=== PATIENT | male | born 1945 | race Caucasian/White ===

== ENCOUNTER 2022-11-13 11:09 | Outpatient (OUT) | payer MEDICARE, OTHER, SELFPAY ==
[2022-11-13 11:39] LABS: Basophils Percent Auto 0.5 % (0.2-2.0); Eosinophils Absolute Auto 0.5 10^3/uL (0.0-0.7); Eosinophils Percent Auto 7.5 % (0.9-7.0); Hematocrit 41.2 % (42.0-54.0); Hemoglobin 13.6 g/dL (14.0-18.0); Immature Granulocytes Abs Auto 0.02 10^3/uL (0.00-0.03); Immature Granulocytes Pct Auto 0.3 % (0.0-0.5); Mean Corpuscular Volume 96.9 fL (80.0-94.0); Monocytes Absolute Auto 0.5 10^3/uL (0.3-0.8); Monocytes Percent Auto 7.2 % (1.7-12.0); Neutrophils Absolute Auto 4.4 10^3/uL (1.4-6.5); Neutrophils Percent Auto 69.5 % (43.0-75.0); Platelet Count 198 10^3/uL (150-450); Red Blood Count 4.25 10^6/uL (4.70-6.10); Red Cell Distribution Width 13.5 % (11.0-15.0); White Blood Count 6.4 10^3/uL (4.0-11.0)
[2022-11-13 11:52] LABS: Microalbumin Urine Random 1.3 mg/dL (<=30.0)
[2022-11-13 11:55] LABS: Estimated Average Glucose 114 mg/dL; Glycohemoglobin A1C 5.6 % (4.5-6.2)
[2022-11-13 12:22] LABS: Alanine Aminotransferase 25 U/L (16-63); Albumin Globulin Ratio 1.2; Albumin Level 3.5 g/dL (3.4-5.0); Alkaline Phosphatase 81 U/L (46-116); Anion Gap 10.1; Aspartate Amino Transferase 19 U/L (15-37); BUN Creatinine Ratio 11.3; Bilirubin Direct 0.2 mg/dL (0.0-0.2); Bilirubin Total 0.8 mg/dL (0.2-1.0); Calcium 9.1 mg/dL (8.5-10.1); Carbon Dioxide 31.1 mmol/L (21.0-32.0); Chloride 102 mmol/L (98-107); Chol HDL Ratio 1.7; Cholesterol 96 mg/dL (<=200); Estimated GFR (African America >60 (>=60); Estimated GFR (Non-African Ame >60 (>=60); Glucose 134 mg/dL (74-106); HDL Cholesterol 56 mg/dL (40-60); Potassium 4.2 mmol/L (3.5-5.1); Sodium 139 mmol/L (136-145); Thyroid Stimulating Hormone 0.481 uIU/mL (0.358-3.740); Total Protein 6.5 g/dL (6.4-8.2); Triglycerides 45 mg/dL (<=150)
[2022-11-13 12:37] LABS: Prostate Specific Antigen Scrn 0.37 ng/mL (<=4.00)
== END 2022-11-13 11:10 ==
PROVIDERS: PCP Family Medicine; Visit Provider Family Medicine
DX: E11.65 Type 2 diabetes mellitus with hyperglycemia (principal); E78.5 Hyperlipidemia, unspecified; Z79.899 Other long term (current) drug therapy; R53.83 Other fatigue; Z12.5 Encounter for screening for malignant neoplasm of prostate
CPT/HCPCS: 36415; 80048; 80061; 80076; 82043; 83036; 84443; 85025; G0103

== ENCOUNTER 2023-02-01 11:53 | Outpatient (OUT) | payer MEDICARE, OTHER, SELFPAY ==
[2023-02-01 16:07] LABS: Estimated Average Glucose 134 mg/dL; Glycohemoglobin A1C 6.3 % (4.5-6.2)
== END 2023-02-01 11:54 | disposition home or self-care (01) ==
LOC: LAB 11:54
PROVIDERS: PCP Family Medicine; Visit Provider Family Medicine
DX: E11.65 Type 2 diabetes mellitus with hyperglycemia (principal)
CPT/HCPCS: 36415; 83036

== ENCOUNTER 2023-03-28 13:46 | Outpatient (OUT) | payer MEDICARE, OTHER, SELFPAY ==
--- NOTE | 2023-03-28 14:04 | US_ITS ---
[address] [address] Patient Name: SRAVANTHI APPIAH MRN: [id number] date: 1945 Sex: M Assigned Patient Location: US Current Patient Location: US Accession/Order Number: [id number] Exam Date: 03/28/2023 14:05 Report Date: 03/28/2023 15:49 At the request of: SHAIKH DONTE Procedure: US scrotum EXAM: US scrotum HISTORY: Right Groin Pain R10.31 COMPARISON: None. TECHNIQUE: Scrotal ultrasound was performed, utilizing grayscale, color, and spectral Doppler. FINDINGS: RIGHT: Testis size: 4.7 X 3.2 X 2.5 cm. Testis morphology: Homogeneous appearance. No mass. Testis flow: Normal testicular color and spectral Doppler. Flow is symmetric with the contralateral testis. Epididymis: Normal size and morphology. Epididymis flow: Normal epididymal flow. Symmetric flow compared to contralateral epididymis. Scrotal sac: small hydrocele. Varicocele: yes. LEFT: Testis size: 4.2 x 3.1 x 2.7 cm. Testis morphology: Homogeneous appearance. No mass. Testis flow: Normal testicular color and spectral Doppler. Flow is symmetric with the contralateral testis. Epididymis: Normal size and morphology. Epididymis flow: Normal epididymal flow. Symmetric flow compared to contralateral epididymis. Scrotal sac: small hydrocele. Varicocele: yes. Additional findings: There is a 7.4 x 3.2 x 2.2 cm right inguinal hernia, containing nondistended bowel loops. US/US scrotum IMPRESSION: No evidence of torsion at the time of examination. Small bilateral hydrocele. Bilateral mild varicocele. A 7.4 x 3.2 x 2.2 cm right inguinal hernia, containing nondistended bowel loops. Electronically authenticated by: PEDRO MILLIGAN Date: 03/28/2023 15:49
== END 2023-03-28 13:47 | disposition home or self-care (01) ==
LOC: US 13:48
PROVIDERS: PCP Family Medicine; Visit Provider Internal Medicine
DX: R10.31 Right lower quadrant pain (principal); N43.3 Hydrocele, unspecified; K40.90 Unilateral inguinal hernia, without obstruction or gangrene, not specified as recurrent
CPT/HCPCS: 76870

== ENCOUNTER 2023-03-29 09:41 | Observation (INO) | payer MEDICARE, OTHER, SELFPAY ==
[2023-03-29 11:33] VITALS: BP 133/71; PULSE 68; RESP 18; TEMP 36.9; O2SAT 94; BMI 25.3
--- NOTE | 2023-03-29 12:01 | XR_ITS ---
The [address] [address] Patient Name: SRAVANTHI APPIAH MRN: [id number] date: 1945 Sex: M Assigned Patient Location: MS Current Patient Location: MS Accession/Order Number: [id number] Exam Date: 03/29/2023 12:15 Report Date: 03/29/2023 12:55 At the request of: ABNER ODEN Procedure: XR acute abdomen series EXAMINATION: XR acute abdomen series HISTORY: Abd Pain COMPARISON: XR chest 07/12/2021 FINDINGS: LUNGS: Mild haziness within medial right lung base. Hyperexpanded lungs. Chronic calcified granuloma within medial right lung base. MEDIASTINUM: No abnormal widening. Stable closure device projecting over cardiac silhouette. BOWEL GAS PATTERN: Non-obstructed. No abnormal dilation or suspicious fluid levels. FREE AIR: None. CALCIFICATIONS: None significant. BONES: No fracture or visible bone lesion. Right convex curvature of lumbar spine. OTHER: Negative. XR/XR acute abdomen series IMPRESSION: 1. Trace amount of right basilar pulmonary infiltrates versus atelectasis. 2. No bowel obstruction or suspicious abdominal findings. Electronically authenticated by: СВЕТЛАНА [place] Date: 03/29/2023 12:55
--- NOTE | 2023-03-29 12:01 | ECG_ITS ---
The [facility] Test Date: 2023-03-29 Pat Name: SRAVANTHI APPIAH Department: Room: 2291 Gender: Male [employer]phol[employer]: : 1945 Requested By: YOKO LEVY Order Number: [id number] Reading MD: ABNER ODEN Measurements Intervals Oley Rate: 70 P: CO: QRS: 54 QRSD: 95 T: 58 QT: 404 QTc: 436 Interpretive Statements ATRIAL FIBRILLATION ABNORMAL RHYTHM ECG WARNING: DATA QUALITY MAY AFFECT INTERPRETATION No previous ECG available for comparison Electronically Signed On 03-31-2023 7:06:13 EDT by ABNER ODEN
--- NOTE | 2023-03-29 13:10 | PM.GSCN ---
History of Present Illness Consult details Consult date: 03/29/23 Reason for consult: hernia Requesting physician: Brian Babcock Narrative: Hector Alvarez is a 78 y/o male being seen on the [facility] surg floor due to a right inguinal hernia. Mr. Alvarez presented to his outpatient primary care physician on 03/28 and was admitted directly into the hospital for nausea, abdominal pain, and right inguinal mass. I was later consulted at about this case by his PCP. Upon questioning, the patient revealed that a few weeks ago he was lifting concrete in his backyard when he suddenly felt a popping sensation in his right inguinal area. He stated that he almost immediately noticed the mass. Patient was planning on bringing up this issue with me as he had an appointment scheduled with me about chronic nausea he's been experiencing lately. Unfortunately, the patient was diagnosed with Covid and was unable to make that appointment. Physical exam showed asymmetry between the inguinal areas with a prominent protrusion in the right inguinal area. The mass was more appreciated with the patient standing and coughing. patient denies abdominal pain, hematochezia, diarrhea, or constipation. Review of Systems ROS Status of ROS 10 or more systems reviewed and unremarkable except as noted in history and below [facility] Medical History (Updated 03/30/23 @ 08:00 by Hector Hurtado MD) Afib ?I48.91 - Unspecified atrial fibrillation (ICD-10) CHF (congestive heart failure) ?I50.9 - Heart failure, unspecified (ICD-10) Colon cancer ?C18.9 - Malignant neoplasm of colon, unspecified (ICD-10) Depression ?F32.A - Depression, unspecified (ICD-10) Diabetes ?E11.9 - Type 2 diabetes mellitus without complications (ICD-10) Hyperlipidemia ?E78.5 - Hyperlipidemia, unspecified (ICD-10) Inguinal hernia bilateral, non-recurrent ?K40.20 - Bilateral inguinal hernia, without obstruction or gangrene, not specified as recurrent (ICD-10) Stroke ?I63.9 - Cerebral infarction, unspecified (ICD-10) Surgical History Cataract ?H26.9 - Unspecified cataract (ICD-10) Cornea transplant recipient ?Z94.7 - Corneal transplant status (ICD-10) History of colon resection ?Z90.49 - Acquired absence of other specified parts of digestive tract (ICD-10) Knee joint replacement status ?Z96.659 - Presence of unspecified artificial knee joint (ICD-10) Presence of Watchman left atrial appendage closure device ?Z95.818 - Presence of other cardiac implants and grafts (ICD-10) Family History Mother Family history of CHF (congestive heart failure) Family history of diabetes mellitus Family history of myocardial infarction Father Family history of COPD (chronic obstructive pulmonary disease) Family history of cancer Social History Within the past year, how often did you have a drink containing alcohol: monthly or less Within the past year, how many standard drinks containing alcohol did you have on a typical day: 1 or 2 Within the past year, how often did you have six or more drinks on one occasion: never Total score: 0 Score interpretation: A score less than 4 is consistent with normal alcohol consumption. 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 Highest level of school completed/degree received: high school graduate Are you now , , , , never or living with a partner: In a typical week, how many times do you talk on the telephone with family, friends, or neighbors: 3 or more times per week How often do you get together with friends or relatives: 3 or more times per week How often do you attend baptist or religion services: never Do you belong to any clubs or organizations such as baptist groups unions, [employer] or athletic groups, or school groups: no Total score: 2 Score interpretation: A score of greater than or equal to 2 indicates the lowest level of social isolation. Little interest or pleasure in doing things: not at all Feeling down, depressed, or hopeless: several days Feel stressed/tense/nervous/anxious/difficulty sleeping: not at all Do you think of yourself as: straight/heterosexual Gender Identity: male and female Meds Home Medications and Allergies Home Medications Medication Instructions Recorded Confirmed Type albuterol sulfate 90 mcg/actuation 2 puff inhalation Q4H PRN 03/29/23 03/29/23 History aerosol inhaler shortness of breath or wheezing aspirin 81 mg capsule 81 mg PO DAILY 03/29/23 03/29/23 History atorvastatin 40 mg tablet 40 mg PO BEDTIME 03/29/23 03/29/23 History donepezil 5 mg tablet 5 mg PO BEDTIME 03/29/23 03/29/23 History fluoxetine 40 mg capsule 40 mg PO DAILY 03/29/23 03/29/23 History metformin 500 mg tablet,extended 500 mg PO BID 03/29/23 03/29/23 History release 24 hr omeprazole 40 mg capsule,delayed 40 mg PO DAILY 03/29/23 03/29/23 History release oxybutynin chloride 10 mg 10 mg PO DAILY 03/29/23 03/29/23 History tablet,extended release 24 hr tamsulosin 0.4 mg capsule 0.4 mg PO DAILY 03/29/23 03/29/23 History Allergies Allergy/AdvReac Type Severity Reaction Status Date / Time No Known Drug Allergies Allergy Verified 03/29/23 11:13 Exam Constitutional Vital Signs, click to edit/add: Last Vital Signs Temp 98.5 F 03/29/23 11:33 Pulse 68 03/29/23 11:33 Resp 18 03/29/23 11:33 BP 133/71 03/29/23 11:33 Pulse Ox 94 L 03/29/23 11:33 O2 Del Method Room Air 03/29/23 11:33 Common normals: no apparent distress, average body habitus, oriented x3, healthy appearing and well nourished Cardio Common normals: regular rate and regular rhythm GI Common normals: soft to palpation Inspection: localized swelling (right groin hernia reducible) Male Groin/Perineum Exam: hernia Neuro Common normals: oriented x3 and CN's II-XII intact bilaterally Results Labs Labs: All other labs normal. Imaging Abdominal ultrasound report/results: report reviewed Assessment and Plan Assessment and Plan (1) Right inguinal hernia: (2) History of heart disease: (3) Afib: (4) CHF (congestive heart failure): (5) Colon cancer: (6) Depression: (7) Diabetes: (8) Stroke: (9) Cataract: (10) Cornea transplant recipient: (11) History of colon resection: (12) Knee joint replacement status: (13) Presence of Watchman left atrial appendage closure device: Plan Right inguinal hernia repair with mesh open; risks benefits and alternatives to surgery which point patient may include infection, bleeding, nerve injury, recurrence of the hernia, blood clots legs or lungs, pneumonia, heart attack, stroke, and/or . He voiced understanding of all the above. Plan is for surgery tomorrow a.m. if ok with anesthesia.
[2023-03-29 13:16] LABS: Basophils Percent Auto 0.3 % (0.2-2.0); Eosinophils Absolute Auto 0.3 10^3/uL (0.0-0.7); Eosinophils Percent Auto 3.8 % (0.9-7.0); Hematocrit 40.1 % (42.0-54.0); Hemoglobin 13.1 g/dL (14.0-18.0); Immature Granulocytes Abs Auto 0.01 10^3/uL (0.00-0.03); Immature Granulocytes Pct Auto 0.1 % (0.0-0.5); Lymphocytes Absolute Auto 1.1 10^3/uL (1.2-3.8); Mean Corpuscular HGB Conc 32.7 g/dL (29.9-35.2); Mean Corpuscular Hemoglobin 31.1 pg (25.9-34.0); Mean Corpuscular Volume 95.2 fL (80.0-94.0); Mean Platelet Volume 9.5 fL (9.5-13.5); Monocytes Absolute Auto 0.7 10^3/uL (0.3-0.8); Monocytes Percent Auto 9.5 % (1.7-12.0); Neutrophils Percent Auto 70.3 % (43.0-75.0); Platelet Count 199 10^3/uL (150-450); Red Blood Count 4.21 10^6/uL (4.70-6.10); White Blood Count 7.1 10^3/uL (4.0-11.0)
[2023-03-29 13:31] LABS: INR 0.99; Partial Thromboplastin Time 28.9 sec (22.3-36.2); Prothrombin Time 10.5 sec (9.0-11.6)
[2023-03-29 13:45] VITALS: O2SAT 97
[2023-03-29 13:52] LABS: Anion Gap 8.4; BUN Creatinine Ratio 12.6; Calcium 9.1 mg/dL (8.5-10.1); Carbon Dioxide 34.2 mmol/L (21.0-32.0); Chloride 101 mmol/L (98-107); Estimated GFR (African America >60 (>=60); Estimated GFR (Non-African Ame >60 (>=60); Glucose 118 mg/dL (74-106); Potassium 4.6 mmol/L (3.5-5.1); Sodium 139 mmol/L (136-145)
[2023-03-29 15:03] VITALS: BP 141/82; PULSE 73; RESP 16; TEMP 36.5; O2SAT 96
--- NOTE | 2023-03-29 16:08 | PC.NURSE ---
Dr. Olson, Dr. Babcock, and Dr. Hurtado aware of Dr. Poole canceling surgery due to extensive cardiac history and discharge home. RN into speak with patient about plan of care. Patient to follow up with mortgage loan assistant to receive cardiac clearance prior to calling Dr. Hurtado for surgery. Patient and family verbalizes understanding. Dr. Hurtado' office phone number provided. Discharge instructions and limitations given to patient, no heavy lifting, no pushing or pulling. Pt verbalizes understanding. Pt educated on when to seek medical attention. Pt verbalizes understanding. Pt and family denies further questions and needs and is agreeable to plan of care.
--- NOTE | 2023-04-02 14:46 | CM.DCFOLLOWU ---
Person spoke with: patient How are you feeling? well How is your pain? no pain Did you understand your discharge instructions? yes Do you have any questions about your discharge instructions? no Were you given any prescriptions at discharge? no Were you able to get your prescriptions filled? N/A Do you understand how to take your medications as ordered? yes Do you have any questions about your follow up appointment and do you plan to keep your follow up appointment? has made phone calls to surgeon and concrete grinder operator, they were supposed to call him back today at 2:30. He is just waiting to get surgery scheduled. Advised to call back to hospital if assistance is still needed. Is there anything else that you would like to discuss? no Questions/Comments/Concerns/Other:
--- NOTE | 2023-04-07 08:57 | PM.PN ---
Progress Note: Subjective Subjective Interval history: Case was discussed with Dr. Olson for eating prior to admission. Inguinal hernia pain continuing to progress but not to the point of needing admitted overnight. The following morning when he came in was evaluated by general surgery who felt not a surgical emergency and can be handled as an outpatient, patient was discharged home prior to my seeing him. Outpatient planning per Dr. Olson Exam Constitutional Vital Signs, click to edit/add: Last Vital Signs Temp 97.7 F 03/29/23 15:03 Pulse 73 03/29/23 15:03 Resp 16 03/29/23 15:03 BP 141/82 03/29/23 15:03 Pulse Ox 96 03/29/23 15:03 O2 Del Method Room Air 03/29/23 15:03 Progress Note: A&P Assessment and Plan (1) Right inguinal hernia: (2) History of heart disease: (3) Afib: (4) CHF (congestive heart failure): (5) Colon cancer: (6) Depression: (7) Diabetes: (8) Stroke: (9) Cataract: (10) Cornea transplant recipient: (11) History of colon resection: (12) Knee joint replacement status: (13) Presence of Watchman left atrial appendage closure device:
== END 2023-03-29 16:13 | disposition home or self-care (01) ==
PROVIDERS: Admitting Provider Family Medicine; PCP Family Medicine; Visit Provider Family Medicine
DX: K40.90 Unilateral inguinal hernia, without obstruction or gangrene, not specified as recurrent (principal); I48.91 Unspecified atrial fibrillation; I50.9 Heart failure, unspecified; F32.A Depression, unspecified; E11.9 Type 2 diabetes mellitus without complications; E78.5 Hyperlipidemia, unspecified; Z86.73 Personal history of transient ischemic attack (TIA), and cerebral infarction without residual deficits; Z94.7 Corneal transplant status; Z90.49 Acquired absence of other specified parts of digestive tract; Z96.659 Presence of unspecified artificial knee joint; Z95.818 Presence of other cardiac implants and grafts; Z85.038 Personal history of other malignant neoplasm of large intestine; Z87.891 Personal history of nicotine dependence; Z79.899 Other long term (current) drug therapy; Z86.16 Personal history of COVID-19; Z79.82 Long term (current) use of aspirin; Z79.84 Long term (current) use of oral hypoglycemic drugs
CPT/HCPCS: 36415; 74022; 80048; 81001; 83880; 85025; 85610; 85730; 87086; 93005; 94667; 94761; G0378; G0379

== ENCOUNTER 2023-08-22 10:08 | Outpatient (OUT) | payer MEDICARE, OTHER, SELFPAY ==
[2023-08-22 11:13] LABS: Estimated Average Glucose 134 mg/dL; Glycohemoglobin A1C 6.3 % (4.5-6.2)
== END 2023-08-22 10:09 | disposition home or self-care (01) ==
LOC: LAB 10:09
PROVIDERS: PCP Family Medicine; Visit Provider Family Medicine
DX: E11.65 Type 2 diabetes mellitus with hyperglycemia (principal)
CPT/HCPCS: 36415; 83036

== ENCOUNTER 2023-09-26 20:16 | Emergency (ER) | payer MEDICARE, OTHER, SELFPAY ==
--- NOTE | 2023-09-26 20:16 | RESP.RT ---
Pt arrived already intubated. RT took over bagging the patient until time of was called.
[2023-09-26 20:23] VITALS: BMI 26.6
--- NOTE | 2023-09-26 20:25 | ED_ITS ---
HPI - CPR General Chief Complaint: Cardiac Arrest/CPR Stated Complaint: Cardiac Arrest Source comment: EMS and bystander History of Present Illness HPI Narrative: This 78-year-old male was brought emergency department by EMS upon notification for full arrest. History was obtained from EMS and a bystander. The bystander called EMS after noticing that the patient's truck was parked outside and was not moving and he was inside. The bystander stated that around 7 PM she noticed that his truck was parked outside and thought that was unusual. She put her kids to bed and approximately 30 minutes later noticed that the truck was still outside and he was still in the truck. She went outside and noticed that he was not breathing or moving and called EMS. EMS was called at approximately 736. Upon their arrival the patient was unresponsive. He was taken out of the vehicle and CPR was started. He received 4 rounds of IV epinephrine and 1 sodium bicarbonate and was intubated at scene. At one point he had ventricular fibrillation and was defibrillated. He was asystole on the monitor besides the one episode of ventricular fibrillation. Upon arrival the patient was intubated with no spontaneous vital signs. He received an additional 2 rounds of IV epinephrine and one round of sodium bicarbonate. He did not regain any vital signs and was pulseless. Code was called at 2018 by myself. Patient's Laurie called his phone and we answered and made her aware of his passing. She came to the ED afterwards. She last saw him between 4-5pm and he seemed fine at that time. Handicrafts Teacher was called and Handicrafts Teacher's assistant plant control operator, Alan came to ED. The plan is for the patient to have an autopsy. Family is agreeable with this plan. critical care time 35 minutes Related Data Home Medications ?Medication ?Instructions ?Recorded ?Confirmed albuterol sulfate 90 mcg/actuation 2 puff inhalation Q4H PRN 03/29/23 03/29/23 aerosol inhaler shortness of breath or wheezing aspirin 81 mg capsule 81 mg PO DAILY 03/29/23 03/29/23 atorvastatin 40 mg tablet 40 mg PO BEDTIME 03/29/23 03/29/23 donepezil 5 mg tablet 5 mg PO BEDTIME 03/29/23 03/29/23 fluoxetine 40 mg capsule 40 mg PO DAILY 03/29/23 03/29/23 metformin 500 mg tablet,extended 500 mg PO BID 03/29/23 03/29/23 release 24 hr omeprazole 40 mg capsule,delayed 40 mg PO DAILY 03/29/23 03/29/23 release oxybutynin chloride 10 mg 10 mg PO DAILY 03/29/23 03/29/23 tablet,extended release 24 hr tamsulosin 0.4 mg capsule 0.4 mg PO DAILY 03/29/23 03/29/23 Allergies Allergy/AdvReac Type Severity Reaction Status Date / Time No Known Drug Allergies Allergy Verified 03/29/23 11:13 [facility] Medical History (Updated 09/26/23 @ 23:00 by Terri Doherty MD) Colon cancer ?C18.9 - Malignant neoplasm of colon, unspecified (ICD-10) Diabetes ?E11.9 - Type 2 diabetes mellitus without complications (ICD-10) Depression ?F32.A - Depression, unspecified (ICD-10) CHF (congestive heart failure) ?I50.9 - Heart failure, unspecified (ICD-10) Stroke ?I63.9 - Cerebral infarction, unspecified (ICD-10) Afib ?I48.91 - Unspecified atrial fibrillation (ICD-10) Hyperlipidemia ?E78.5 - Hyperlipidemia, unspecified (ICD-10) Inguinal hernia bilateral, non-recurrent ?K40.20 - Bilateral inguinal hernia, without obstruction or gangrene, not specified as recurrent (ICD-10) Surgical History Cataract ?H26.9 - Unspecified cataract (ICD-10) Cornea transplant recipient ?Z94.7 - Corneal transplant status (ICD-10) History of colon resection ?Z90.49 - Acquired absence of other specified parts of digestive tract (ICD- 10) Knee joint replacement status ?Z96.659 - Presence of unspecified artificial knee joint (ICD-10) Presence of Watchman left atrial appendage closure device ?Z95.818 - Presence of other cardiac implants and grafts (ICD-10) Family History Mother Family history of CHF (congestive heart failure) Family history of diabetes mellitus Family history of myocardial infarction Father Family history of COPD (chronic obstructive pulmonary disease) Family history of cancer Social History Within the past year, how often did you have a drink containing alcohol: monthly or less Within the past year, how many standard drinks containing alcohol did you have on a typical day: 1 or 2 Within the past year, how often did you have six or more drinks on one occasion: never Total score: 0 Score interpretation: A score less than 4 is consistent with normal alcohol consumption. 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 Highest level of school completed/degree received: high school graduate Are you now , , , , never or living with a partner: In a typical week, how many times do you talk on the telephone with family, friends, or neighbors: 3 or more times per week How often do you get together with friends or relatives: 3 or more times per week How often do you attend oriental orthodox or catholic services: never Do you belong to any clubs or organizations such as oriental orthodox groups unions, [employer] or athletic groups, or school groups: no Total score: 2 Score interpretation: A score of greater than or equal to 2 indicates the lowest level of social isolation. Little interest or pleasure in doing things: not at all Feeling down, depressed, or hopeless: several days Feel stressed/tense/nervous/anxious/difficulty sleeping: not at all Do you think of yourself as: straight/heterosexual Gender Identity: male and female Examination Exam Primary Survey: Yes pulseless General: Yes normal body habitus Head/Face: Yes other (Pupils are fixed, conjunctiva has a film over it) Eyes: Yes no periorbital swelling Chest: Yes intact to palpation Circulation: Yes absent heart sounds, Yes absent peripheral pulse, Yes pallor and Yes cyanosis Respiratory: Yes other (intubated, no spontaneous respirations) Gastrointestinal: Yes nondistended Extremities: Yes intact to palpation Back/Spine: Yes patient on back board Skin: Yes no sign of injury MDM - Cardiac Arrest/CPR MDM Narrative Medical decision making narrative: See note in HPI Discharge Plan Discharge Chief Complaint: Cardiac Arrest/CPR Clinical Impression: Cardiac arrest Patient Disposition: Prescriptions / Home Meds: No Action albuterol sulfate 90 mcg/actuation HFA aerosol inhaler 2 puff INHALATION Q4H PRN (Reason: shortness of breath or wheezing) atorvastatin 40 mg tablet 40 mg PO BEDTIME donepezil 5 mg tablet 5 mg PO BEDTIME fluoxetine 40 mg capsule 40 mg PO DAILY metformin 500 mg tablet extended release 24 hr 500 mg PO BID omeprazole 40 mg capsule,delayed release(DR/EC) 40 mg PO DAILY oxybutynin chloride 10 mg tablet extended release 24hr 10 mg PO DAILY tamsulosin 0.4 mg capsule 0.4 mg PO DAILY aspirin 81 mg capsule 81 mg PO DAILY Print Language: Ivorian Referrals: Fish Mariscal MD [Primary Care Provider] - 1 week Probable Cause of Probable Cause of : Cardiac arrest
--- OUTSIDE RECORDS SUMMARY | 2023-09-26 20:33 | XMS_ITS | CCD ---
Author Organization [facility] Care Team Providers Care Clinical Specialty Rep Name Role Phone PROVIDER, UNKNOWN Admitting Unavailable PROVIDER, UNKNOWN Attending Unavailable RONDA VOSS Attending Unavailable WACHSMAN, TEGAN Admitting Unavailable REQUEST, IP SOCIAL WORK SERVICE Consulting Unavailable MASSIEL JONES Referring Unavailable REQUEST, IP PHYSICAL THERAPY SERVICE Consulting Unavailable CONSULT, IP NEUROLOGY Consulting Unavailabl e REQUEST, IP OCCUPATIONAL THERAPY SERVICE Consult ing Unavailable PROVIDER, UNKNOWN Admitting Unavailable MARY SIGALA Referring Unavailable PROVIDER, UNKNOWN Attending Unavailable PROVIDER, UNKNOWN Admitting Unavailable PROVIDER, UNKNOWN Attending Unavailable PROVIDER, UNKNOWN Attending Unavailable FISH LEVY Primary Care Unavailable PROVIDER, UNKNOWN Admitting Unavailable PROVIDER, UNKNOWN Attending Unavailable PATIENT, SELF Referring Unavailable FISH LEVY Primary Care Unavailable PROVIDER, UNKNOWN Admitting Unavailable PROVIDER, UNKNOWN Admitting Unavailable ABRAHAM GAUTAM Referring Unavailable PROVIDER, UNKNOWN Attending Unavailable WACHSMAN, TEGAN Admitting Unavailable MASSIEL JONES Referring Unavailable PROVIDER, UNKNOWN Attending Unavailable WACHSMAN, TEGAN Admitting Unavailable KAREN, MASSIEL Referring Unavailable PROVIDER, UNKNOWN Attending Unavailable WACHSMAN, TEGAN Admitting Unavailable KAREN, MASSIEL Referring Unavailable PROVIDER, UNKNOWN Attending Unavailable SELVINCHSMAN, TEGAN Admitting Unavailable KAYLAN VALDIVIA Referring Unavailable PROVIDER, UNKNOWN Attending Unavailable Fish Levy Unavailable Unavailable Unavailable Leandra Abbasi Consulting Unavailable Geri, Carlito Admitting Unavailable Sanjana Loo Attending Unavailable Shaikh Olson Primary Care Unavailable Rodolfo Shaffer Consulting Unavailable Celine Garcia Consulting Unavailable Edin Clifford Consulting Unavail able Ken Mathew Consulting Unavailable Bao Landa Consulting Unavailab Delmi Lin Consulting Unavailable Deloris García Consulting Unavailable Belinda De Leon Consulting Unavailab Néstor Love Consulting Unavailable ZIEBER, DR СВЕТЛАНА Damon Consulting Unavailable NADERER, DR FISH Artis Primary Care Unavailable FAWWAD, H Admitting Unavailable FAWWAMarlon, H Attending Unavailable FAWJAXON, H Consulting Unavailable NADERER, DR FISH Artis Attending Unavailable NADERER, DR FISH Artis Admitting Unavailable NADERER, DR FISH Artis Consulting Unavailable NADERER, DR FISH Artis Primary Care Unavailable NADERER, DR FISH Artis Attending Unavailable NADERER, DR FISH Artis Consulting Unavailable NADERER, DR FISH Artis Primary Care Unavailable NADERER, DR FISH Artis Admitting Unavailable GRECHNY ., TERE TINOCO Consulting Unavailabl e NADERER, DR FISH Artis Primary Care Unavailable DIAB ., PRATIMA Admitting Unavailable DIAB ., PRATIMA Attending Unavailable BRENTON, DR MCKENZIE Damon Consulting Unavailable BELTRÁN, DR MCKENZIE Damon Admitting Unavailable NADERER, DR FISH Artis Primary Care Unavailable BRENTON, DR MCKENZIE Damon Attending Unavailable GRECHNY ., TERE TINOCO Consulting Unavailabl e CARROLL, JASSON Consulting Unavailable KIRILL LOPEZ Consulting Unavailable NADERER, DR FISH Artis Primary Care Unavailable KENNY ., WASHINGTON Admitting Unavailable KENNY ., WASHINGTON Attending Unavailable MORELAND, BRUNA-JAD Consulting Unavailable KENNY ., [place] Consulting Unavailable DIAB ., PRATIMA Consulting Unavailable RASTEGAR, PEDRO Consulting Unavailable Marina Gaines Unavailable [place] ARBOLEDA Attending Unavailable FISH LEVY Referring Unavailable NAELERENelson, FISH Primary Care Unavailable Fish Levy MD Primary Care Provider KRISTYN LOPEZ I Attending Unavailable NAELERER, FISH Referring Unavailable NADERER, FISH Primary Care Unavailable KRISTYN LOPEZ I Referring Unavailable CAM, FISH Primary Care Unavailable NAELERER, FISH Referring Unavailable NAELERER, FISH Primary Care Unavailable SRAVANTHI CASTELLANOS Referring Unavailable NADERER, FISH Primary Care Unavailable AYESHA JERONIMO Attending Unavailable AYESHA JERONIMO Referring Unavailable NADERER, FISH Primary Care Unavailable KRISTYN LOPEZ I Referring Unavailable CAM, FISH Primary Care Unavailable SRAVANTHI CASTELLANOS Admitting Unavailable SRAVANTHI CASTELLANOS Attending Unavailable SRAVANTHI CASTELLANOS Referring Unavailable NAELERER, FISH Primary Care Unavailable AYESHA JERONIMO Attending Unavailable FISH LEVY Primary Care Unavailable SRAVANTHI CASTELLANOS Attending Unavailable SRAVANTHI CASTELLANOS Referring Unavailable FISH LEVY Primary Care Unavailable Allergies Allergy Classification Reported Allergen(s) Allergy Type Date of Onset Reaction(s) Facility (12 sources) Flecainide; Translations: [FLECAINIDE] Drug Allergy 4 Dizziness [facility] Repository (2 sources) hydrOXYzine; Translations: [hydrOXYzine] Drug Allergy Other -[facility] 250 DO Work Phone: (1 source) hydrOXYzine Drug Allergy 2 [facility] Repository (1 source) hydrOXYzine Drug Allergy [facility] Repository (1 source) cyclobenzaprine Drug Allergy Unknown [facility] [employer] Other (1 source) traMADol Drug Allergy Unknown [facility] [employer] Other Medications Current Medications Medication Drug Class(es) Dates Sig (Normalized) Sig (Original) [id number] 200 actuat albuterol 0.09 mg/actuat metered dose inhaler (5 sources) beta2-Adrenergic Agonist take 2 puff(s) by inhalation every four hours as needed for wheezing albuterol (PROVENTIL HFA;VENTOLIN HFA) 90 mcg/actuation inhaler Inhale 2 puffs every 4 (four) hours as needed for wheezing. 0 Active take 2 puff(s) by inhalation twi ce daily Albuterol Sulfate HFA 108 (90 Base) MCG/ACT Inhalation Aerosol Solution INHALE 2 PUFFS Twice daily Quantity: 0 Refills: 0 Ordered: 28-Sep-2021 DO Active aspirin 81 mg oral tablet (5 sources) Platelet Aggregation Inhibitor, Nonsteroidal Anti-inflammatory Drug take 1 capsule by mouth in the morning aspirin 81 mg capsule Take 81 mg by mouth in the morning. 0 Active take 1 tablet by mouth once soraya y Aspirin 325 MG Oral Tablet Delayed Release Take 1 tablet daily Quantity: 0 Refills: 0 Ordered: 28-Sep-2021 DO Active atorvastatin 40 mg oral tablet (6 sources) HMG-CoA Reductase Inhibitor Start: 01-28-2019 take 1 tablet by mouth once daily atorvastatin (LIPITOR) 40 mg tablet Take 1 tablet (40 mg total) by mouth daily. 90 tablet 3 01/28/2019 Active citalopram 40 mg oral tablet (1 source) Serotonin Reuptake Inhibitor take 0.5 tablet by mouth every twenty-four hours Citalopram Hydrobromide 40 MG 0.5 tablet Orally Once a day Active dextromethorphan hydrobromide 1.5 mg/ml / pyrilamine maleate 1.5 mg/ml oral solution (1 source) Uncompetitive E-evaluw-C-aspartat e Receptor Antagonist, Sigma-1 Agonist Start: 03-13-2023 take 10 mL by mouth every eight hours Morse DM 7.5-7.5 MG/5ML 10 mL Orally every 8 hours for 5 days Mar, Active donepezil hydrochloride 5 mg oral tablet (3 sources) take 1 tablet by mouth once daily donepeziL (ARICEPT) 5 mg tablet Take 1 tablet (5 mg total) by mouth nightly. 0 Active FLUoxetine 40 mg oral capsule (5 sources) Serotonin Reuptake Inhibitor take 1 capsule by mouth in the morning FLUoxetine (PROzac) 40 mg capsule Take 1 capsule (40 mg total) by mouth in the morning. 0 Active fluticasone propionate 0.05 mg/actuat metered dose nasal spray (1 source) Corticosteroid Start: 03-13-2023 take 1 spray(s) nasal route once daily Flonase Allergy Relief 50 MCG/ACT 1 spray in each nostril Nasally Once a day for 14 day(s) Mar, Active Medical Marijuana / Cannabinoid Product as documented (1 source) Medical Marijuan a / Cannabinoid Product as documented as documented as documented as documented Active metFORMIN hydrochloride 500 mg oral tablet (6 sources) Biguanide take 1 tablet by mouth in the morning, then take 1 tablet by mouth at bedtime metFORMIN (GLUCOPHAGE) 500 mg tablet Take 1 tablet (500 mg total) by mouth in the morning and 1 tablet (500 mg total) before bedtime. 0 Active take 1 tablet by stacy th every twenty-four hours metFORMIN HCl 1000 MG 1 tablet with a meal Orally Once a day Active take 1 tablet by stacy th twice daily at mealtime metFORMIN HCl - 1000 MG Oral Tablet TAKE 1 TABLET TWICE A DAY WITH MEALS Quantity: 180 Refills: 0 Ordered: 28-Sep-2021 DO Active ondansetron 4 mg oral tablet (1 source) Serotonin-3 Receptor Antagonist Start: 03-13-2023 take 1 tablet by mouth every eight hours as needed Ondansetron HCl 4 MG 1 tablet Orally every 8 hours as needed for 7 days Mar, Active ONETOUCH VERIO SYSTEM misc (3 sources) Start: 12-24-2017 ONETOUCH VERIO SYSTEM misc See Admin Instructions. 0 12/24/2017 Active 24 hr oxybutynin chloride 10 mg extended release oral tablet (3 sources) Cholinergic Muscarinic Antagonist Start: 02-01-2023 take 1 tablet by mouth once daily oxybutynin XL (DITROPAN-XL) 10 mg 24 hr tablet TAKE 1 TABLET BY MOUTH EVERY DAY 0 02/01/2023 Active prednisoLONE acetate 10 mg/ml ophthalmic suspension (5 sources) Corticosteroid Start: 04-16-2017 prednisoLONE acetate (PRED FORTE) 1 % ophthalmic suspension Administer 1 drop to both eyes in the morning. 6 04/16/2017 Active take 1 drop(s) into the eye(s) once daily prednisoLONE Acetate 1 % Ophthalmic Suspension INSTILL 1 DROP INTO BOTH EYS DAILY. Quantity: 0 Refills: 0 Ordered: 28-Sep-2021 DO Active psyllium 3400 mg powder for oral suspension (3 sources) take 1 [tsp_us] by mouth once daily in the morning psyllium (METAMUCIL) powder Take 1 packet by mouth in the morning. 1 teaspoon daily. 0 Active rivaroxaban 20 mg oral tablet (1 source) Factor Xa Inhibitor take 1 tablet by mouth every twenty-four hours Xarelto 20 MG 1 tablet with food Orally Once a day Active tamsulosin hydrochloride 0.4 mg oral capsule (6 sources) alpha-Adrenergic Melo take 1 capsule by mouth once daily tamsulosin (FLOMAX) 0.4 mg capsule Take 1 capsule (0.4 mg total) by mouth nightly. 0 Active zolpidem tartrate 5 mg oral tablet (3 sources) gamma-Aminobutyric Acid-ergic Agonist take 1 tablet by mouth every twenty-four hours Zolpidem Tartrate 5 MG 1 tablet at bedtime Orally Once a day Active take 1 tablet by mouth at bedtim e Zolpidem Tartrate 10 MG Oral Tablet TAKE 1 TABLET AT BEDTIME. Quantity: 0 Refills: 0 Ordered: 28-Sep-2021 DO Active Completed/Discontinued Medications Medication Drug Class(es) Dates Sig (Normalized) Sig (Original) furosemide 40 mg oral tablet (2 sources) Loop Diuretic Start: 09-27-2021 take 1 tablet by mouth once daily Furosemide 40 MG Oral Tablet TAKE 1 TABLET DAILY. Quantity: 0 Refills: 0 Ordered: 27-Sep-2021 DO Start : 27-Sep-2021 Active metoprolol tartrate 25 mg oral tablet (2 sources) beta-Adrenergic Melo Start: 09-28-2021 take 1 tablet by mouth once daily Metoprolol Tartrate 25 MG Oral Tablet Take 1 tablet daily Quantity: 90 Refills: 3 Ordered: 28-Sep-2021 Edin Clifford MD Start : 28-Sep-2021 Active DOSE DECreASeD; DO NOT FILL UPDATE PROFILE take 1 tablet by stacy th every twelve hours Metoprolol Tartrate 50 MG 1 tablet with food Orally Twice a day Active warfarin sodium 5 mg oral tablet (2 sources) Vitamin K Antagonist take 1 tablet by mouth once daily Warfarin Sodium 5 MG Oral Tablet TAKE 1 TABLET DAILY or as directed by [facility] Quantity: 90 Refills: 1 Ordered: 28-Sep-2021 DO Active Problems Active Problems Problem Classification Problem Date Documented Da te Episodic/Chronic Acute cerebrovascular disease (4 sources) Nontraumatic subarachnoid hemorrhage, unspecified; Translations: [Cerebrovascular accident] Onset: 03-08-2022 03-08-2022 Chronic Asthma (1 source) Unspecified asthma, uncomplicated; Translations: [J45.909 - Unspecified asthma, uncomplicated] Onset: 07-13-2021 Chronic Cancer of colon (1 source) Personal history of other malignant neoplasm of large intestine; Translations: [PERS HX OTH MALIG NEOPLSM LG INTEST] Onset: 10-31-2022 Episodic Cancer of thyroid (3 sources) Papillary thyroid carcinoma; Translations: [Malignant neoplasm of thyroid gland] Onset: 11-27-2019 11-27-2019 Chronic Cardiac dysrhythmias (11 sources) Unspecified atrial fibrillation; Translations: [Atrial fibrillation] Onset: 10-25-2009 04-15-2021 Chronic Chronic obstructive pulmonary disease and bronchiectasis (1 source) Chronic obstructive pulmonary disease, unspecified; Translations: [Chronic obstructive pulmonary disease, unspecified] Onset: 09-11-2023 Chronic Congestive heart failure; nonhypertensive (7 sources) Heart failure, unspecified; Translations: [Chronic diastolic heart failure] Onset: 07-21-2015 04-25-2017 Chronic Coronary atherosclerosis and other heart disease (4 sources) Coronary arteriosclerosis; Translations: [Atherosclerotic heart disease of [place] coronary artery with other forms of angina pectoris] Onset: 02-14-2019 02-14-2019 Chronic Diabetes mellitus with complications (4 sources) Type 2 diabetes mellitus with hyperglycemia; Translations: [TYPE 2 DM W/HYPERGLYCEMIA] Onset: 06-26-2022 Chronic Diabetes mellitus without complication (3 sources) Diabetes mellitus without complication; Translations: [Diabetes mellitus without mention of complication, type II or unspecified type, not stated as uncontrolled] Onset: 10-31-2022 Chronic Diseases of white blood cells (1 source) Elevated white blood cell count, unspecified; Translations: [ELEVATED WHITE BLOOD CELL COUNT UNS] Onset: 08-23-2022 Chronic Disorders of lipid metabolism (6 sources) Hyperlipidemia; Translations: [Other and unspecified hyperlipidemia] Onset: 04-07-2009 04-25-2017 Chronic Essential hypertension (3 sources) Benign essential hypertension; Translations: [Benign essential hypertension] Onset: 10-31-2022 Chronic Genitourinary symptoms and ill-defined conditions (6 sources) Urge incontinence of urine; Translations: [Urge incontinence] Onset: 08-02-2023 08-02-2023 Chronic Genitourinary symptoms and ill-defined conditions (2 sources) Nocturia; Translations: [Nocturia] Onset: 08-02-2023 Episodic Headache; including migraine (3 sources) Headache; including migraine; Translations: [HEADACHE UNSPECIFIED] Onset: 03-07-2022 Heart valve disorders (3 sources) Aortic valve regurgitation; Translations: [Nonrheumatic aortic (valve) insufficiency] Onset: 02-09-2023 02-09-2023 Chronic Hyperplasia of prostate (7 sources) Benign prostatic hyperplasia without lower urinary tract symptoms; Translations: [Nocturia due to benign prostatic hypertrophy] Onset: 08-23-2022 08-02-2023 Chronic Hypertension with complications and secondary hypertension (3 sources) Hypertensive heart disease with congestive heart failure; Translations: [Hypertensive heart disease with heart failure] Onset: 03-13-2019 03-13-2019 Chronic Late effects of cerebrovascular disease (3 sources) Sequela of cerebrovascular accident; Translations: [Unspecified sequelae of cerebral infarction] Onset: 05-24-2022 05-24-2022 Chronic Nausea and vomiting (3 sources) Nausea with vomiting, unspecified; Translations: [NAUSEA WITH VOMITING UNSPECIFIED] Onset: 08-20-2022 Episodic Noninfectious gastroenteritis (1 source) Noninfective gastroenteritis and colitis, unspecified; Translations: [NONINFECTIVE GE AND COLITIS UNS] Onset: 08-23-2022 Episodic Other aftercare (1 source) Other residential (current) drug therapy; Translations: [OTH ALF CURRENT DRUG THERAPY] Onset: 10-31-2022 Episodic Other aftercare (1 source) staff radiographer (current) use of aspirin; Translations: [LEAF STICKER CURRENT USE OF ASPIRIN] Onset: 10-31-2022 Episodic Other aftercare (1 source) group home (current) use of oral hypoglycemic drugs; Translations: [ALF USE ORAL HYPOGLYCEMIC DX] Onset: 10-31-2022 Episodic Other circulatory disease (3 sources) Presence of other cardiac implants and grafts; Translations: [Other specified cardiac device in situ] Onset: 04-27-2021 04-27-2021 Chronic Other gastrointestinal disorders (1 source) Personal history of other diseases of the digestive system; Translations: [Personal history of other diseases of the digestive system] Onset: 06-05-2023 Episodic Other hereditary and degenerative nervous system conditions (3 sources) Essential tremor; Translations: [Essential tremor] Onset: 05-24-2022 05-24-2022 Chronic Other nutritional; endocrine; and metabolic disorders (2 sources) Overweight in adulthood with body mass index of 25 or more but less than 30; Translations: [Overweight] Episodic Other screening for suspected conditions (not mental disorders or infectious disease) (2 sources) Other specified abnormal findings of blood chemistry; Translations: [Encounter for screening for malignant neoplasm of prostate] Onset: 11-14-2021 Episodic Other skin disorders (4 sources) Changes in skin texture; Translations: [CHANGES IN SKIN TEXTURE] Onset: 10-30-2022 Episodic Residual codes; unclassified (1 source) Other specified postprocedural states; Translations: [Other specified postprocedural states] Onset: 06-05-2023 Episodic Screening and history of mental health and substance abuse codes (3 sources) Ex-smoker; Translations: [Personal history of tobacco use] Onset: 10-31-2022 Episodic Comment on above: QUIT SMOKING - SMOKED - 1 PPD; Spondylosis; intervertebral disc disorders; other back problems (2 sources) Cervical spondylosis without myelopathy; Translations: [Spondylosis without myelopathy or radiculopathy, cervical region] Chronic Unclassified (1 source) I31.3 - Pericardial effusion (noninflammatory); Translations: [I31.3 - Pericardial effusion (noninflammatory)] Onset: 07-13-2021 Unclassified (1 source) CONTACT W/AND (SUSP) EXPOS COVID-19; Translations: [CONTACT W/AND (SUSP) EXPOS COVID-19] Onset: 08-23-2022 Unclassified (1 source) Post-op Onset: 06-05-2023 Unclassified (1 source) New Patient Onset: 08-02-2023 Unclassified (1 source) Urgency incontinence [N39.41] Onset: 09-24-2023 Viral infection (1 source) Postherpetic neuralgia; Translations: [Other postherpetic nervous system involvement] Episodic Past or Other Problems Problem Classification Problem Date Documented Da te Episodic/Chronic Complication of device; implant or graft (3 sources) Thrombus of physiologic left atrium as complication of procedure; Translations: [Thrombosis due to cardiac prosthetic devices, implants and grafts, initial encounter] Onset: 05-31-2021 05-31-2021 Episodic Conditions associated with dizziness or vertigo (3 sources) Dizziness; Translations: [Dizziness and giddiness] Onset: 01-28-2019 01-28-2019 Episodic Deficiency and other anemia (1 source) Anemia, unspecified; Translations: [D64.9 - Anemia, unspecified] Onset: 07-13-2021 Episodic Headache; including migraine (3 sources) Headache; Translations: [Headache] Onset: 03-09-2022 03-09-2022 Episodic Malaise and fatigue (1 source) Weakness; Translations: [R53.1 - Weakness] Onset: 07-13-2021 Episodic Nonspecific chest pain (5 sources) Chest pain, unspecified; Translations: [Other chest pain] Onset: 07-13-2021 Episodic Other aftercare (1 source) group home (current) use of anticoagulants; Translations: [LEAF STICKER CURRNT USE ANTICOAGULANTS] Onset: 03-09-2022 Episodic Estrella-; endo-; and myocarditis; cardiomyopathy (except that caused by tuberculosis or sexually transmitted disease) (3 sources) Pericarditis; Translations: [Unspecified disease of pericardium] Onset: 07-13-2021 Episodic Unclassified (1 source) Contact with and (suspected) exposure to covid-19 Z20.822 Viral infection (2 sources) COVID-19; Translations: [U07.1 - COVID-19] Onset: 07-13-2021 Results Test Name Value Interpretation Reference Range Facility US RETROPERITONEAL COMPLETEo n 09-16-2023 US RETROPERITONEAL COMPLETE US RETROPERITONEAL COMPLETE EXAM: Complete retroperitoneal ultrasound. HISTORY: Urgency and incontinence. COMPARISON: None. TECHNIQUE: Transabdominal sonography was performed of the kidneys. FINDINGS: The right kidney measures 14.4 x 6.0 x 6.6 cm. Left kidney 12.4 x 4.7 x 6.1 cm. The kidneys are normal in size and echogenicity. There is no evidence of mass, dilated collecting structures, shadowing stones, or perinephric fluid collection. Cyst is visualized at the lateral and inferior pole of the right kidney measuring 7.0 x 6.6 x 6.9 cm. Other cyst with septation is seen in the mid right kidney medially measuring 4.7 x 4.9 x 4.5 cm. Multiple small cysts are seen in the left kidney at the mid portion medially and the largest measure 1.3 x 1.4 x 1.2 cm Bladder appears grossly unremarkable. Urinary bladder measures 5 x 6.2 x 6.6 cm and total bladder volume is 143.4 mL. Post voiding measurements decreased to 3.1 x 4.5 x 5.3 cm and total post voiding residual volume of 38 mL. Bilateral ureteral jets are visualized Enlarged prostate gland is visualized measuring 4.5 x 4.8 x 4.9 cm with total volume of 55 mL. IMPRESSION: Bilateral simple renal cysts requiring no further follow-up. No stones or hydronephrosis Small amount of postvoiding residual of 38 mL. Prominent prostate gland with the measurements described above. Finalized by Elidia Fagan MD on 09/15/2023 11:44 PM Normal [facility] BASIC METABOLIC PANLon 09-10 Anion gap [Moles/Vol] 6 mmol/L Normal 5-15 [facility] Comment on above: Performed By: #### B MP, 718-7 #### [facility] ([id number]) [address], [address] [place] [address] Calcium [Mass/Vol] 9.2 mg/dL Normal 8.5-10.5 [facility] Comment on above: Performed By: #### Frantz CAMPOS, 718-7 #### [facility] ([id number]) [address], [address] [place] [address] Chloride [Moles/Vol] 98 mmol/L Normal 98-[address] [facility] Comment on above: Performed By: #### Frantz CAMPOS 718-7 #### [facility] ([id number]) [address], [address] [place] [address] CO2 [Moles/Vol] 32 mmol/L Normal 22-32 [facility] Comment on above: Performed By: #### Frantz CAMPOS 718-7 #### [facility] ([id number]) [address], [address] [place] [address] Creatinine [Mass/Vol] 1.12 mg/dL Normal 0.60-1.30 [facility] Comment on above: Result Comment: METH OD TRACEABLE TO IDMS STANDARD Performed By: #### Frantz CAMPOS 718-7 #### [facility] ([id number]) [address], [address] [place] [address] GFR/1.73 sq M.predicted among non-blacks MDRD (S/P/Bld) [Vol rate/Area] 67 mL/min/{1.73_m2} Normal >59 [facility] Comment on above: Result Comment: Reported eGFR is based on the CKD-EPI 2020 equation that does not use a race coefficient. Performed By: #### Frantz CAMPOS, 718-7 #### [facility] ([id number]) [address], [address] [place] [address] Glucose [Mass/Vol] 132 mg/dL High 65-99 [facility] Comment on above: Performed By: #### Frantz CAMPOS 718-7 #### [facility] ([id number]) [address], [facility] [address] [place] [address] Potassium [Moles/Vol] 4.4 mmol/L Normal 3.5-5.0 [facility] Comment on above: Performed By: #### Frantz CAMPOS 718-7 #### [facility] ([id number]) [address], [facility] [address] [place] [address] Sodium [Moles/Vol] 136 mmol/L Normal 134-146 [facility] Comment on above: Performed By: #### Frantz CAMPOS 718-7 #### [facility] ([id number]) [address], [facility] [address] [place] [address] Urea nitrogen [Mass/Vol] 14 mg/dL Normal 5-27 [facility] Comment on above: Performed By: #### Frantz CAMPOS 718-7 #### [facility] ([id number]) [address], [facility] [address] [place] [address] HEMOGLOBINon 09-11-2023 Hemoglobin (Bld) [Mass/Vol] 13.6 g/dL Normal 13.0-17.0 [facility] Comment on above: Performed By: #### Frantz CAMPOS 718-7 #### [facility] ([id number]) [address], [facility] [address] [place] [address] URINALYSISon 09-11-2023 Bilirubin Ql (U) Negative Normal NEG [facility] BLOOD/HGB Negative Normal NEG [facility] Color (U) YELLOW Normal YELLOW [facility] Glucose Ql (U) Negative Normal NEG [facility] Ketones Ql (U) Negative Normal NEG [facility] Leukocyte esterase Test strip Ql (U) Negative Normal NEG [facility] Nitrite Ql (U) Negative Normal NEG [facility] pH (U) 6.5 [pH] Normal 5.0-8.5 [facility] Protein Ql (U) Negative Normal NEG [facility] Specific gravity (U) [Rel density] 1.011 Normal 1.003-1.035 [facility] TURBIDITY CLEAR Normal CLEAR [facility] Urobilinogen (U) [Mass/Vol] mg/dL Normal <1.1 [facility] URINE CULTUREon 09-11-2023 Bacteria identified Cx Nom (U) CULTURE RESULTS <10,000 ORGANISMS/ML NORMAL URO GENITAL SUZY Normal [facility] Comment on above: Performed By: #### 6 30-4 #### [facility] ([id number]) [address] [place] [address], [address] [place] [address] Microscopic, urineon 024 Epithelial cells Auto (Urine sed) [#/Area] [facility] RBC Auto (Urine sed) [#/Area] 0 [facility] WBC Auto (Urine sed) [#/Area] 1 [facility] POCT Urinalysis Auto, W/O Mi croscopyOrdered By: Heidi Sands on 08-02-2023 External Poct Urine Blood Trace [facility] External Poct Urine Glucose Negative [facility] External Poct Urine Ketones Negative [facility] External Poct Urine Leukocyte Esterase Negative [facility] External Poct Urine Nitrite Negative [facility] External Poct Urine Ph 6.0 [facility] External Poct Urine Protein Negative [facility] UA (MICROSCOPIC)on 4 R.B.CELLS 0 /hpf Normal 0-5 [facility] SQUAMOUS EPITHELIUM <1 Normal 0-5 [facility] W.B.CELLS 1 /hpf Normal 0-5 [facility] COVID/FLU RT-PCRon 3 SARS-CoV-2 (COVID-19) RNA JAY+probe Ql (Unsp spec) Positive [facility] Other COVID/FLU RT-PCR Negative [facility] Other CBC AUTO DIFFon 08-21-2022 BASO # 0.0 103/ul Normal 0.0-0.1 [facility] Comment on above: Performed By: #### C VDTBH #### [facility] [address] [place] [address] Dr. Armando Dumas Basophils/100 WBC (Bld) 0.3 % Normal 0.2-2.0 [facility] Comment on above: Performed By: #### C VDTBH #### [facility] [address] [place] [address] Dr. Armando Dumas EO # 0.3 103/ul Normal 0.0-0.7 [facility] Comment on above: Performed By: #### C VDTBH #### [facility] [address] [place] [address] Dr. Armando Dumas Eosinophils/100 WBC (Bld) 2.2 % Normal 0.9-7.0 [facility] Comment on above: Performed By: #### C VDTBH #### [facility] [address] [place] [address] Dr. Armando Dumas Erythrocyte distribution width (RBC) [Ratio] 13.2 % Normal 11.0-15.0 [facility] Comment on above: Performed By: #### C VDTBH #### [facility] [address] [place] [address] Dr. Armando Dumas Hematocrit (Bld) [Volume fraction] 34.1 % Critically low 42.0-54.0 [facility] Comment on above: Performed By: #### C VDTBH #### [facility] [address] [place] [address] Dr. Armando Dumas Hemoglobin (Bld) [Mass/Vol] 11.2 g/dL Critically low 14.0-18.0 [facility] Comment on above: Performed By: #### C VDTBH #### [facility] [address] [place] [address] Dr. Armando Dumas IG # 0.04 10e3/ul Critically high 0.00-0.03 [facility] Comment on above: Performed By: #### C VDTBH #### [facility] [address] [place] [address] Dr. Armando Dumas IG % 0.3 % Normal 0.0-0.5 [facility] Comment on above: Performed By: #### C VDTBH #### [facility] [address] [address] [address] Armando Dumas LYMPH # 1.3 103/ul Normal 1.2-3.8 [facility] Comment on above: Performed By: #### C VDTBH #### [facility] [address] [place] [address] Dr. Armando Dumas Lymphocytes/100 WBC (Bld) 11.4 % Critically low 20.5-60.0 [facility] Comment on above: Performed By: #### C VDTBH #### [facility] [address] [place] [address] Dr. Armando Dumas MANUAL DIFF REQ NO Normal [facility] Comment on above: Performed By: #### C VDTBH #### [facility] [address] [place] [address] Dr. Armando Dumas MCH (RBC) [Entitic mass] 30.6 pg Normal 25.9-34.0 [facility] Comment on above: Performed By: #### C VDTBH #### [facility] [address] [place] [address] Dr. Armando Dumas MCHC (RBC) [Mass/Vol] 32.8 g/dL Normal 29.9-35.2 [facility] Comment on above: Performed By: #### C VDTBH #### [facility] [address] [place] [address] Dr. Armando Dumas MCV (RBC) [Entitic vol] 93.2 fL Normal 80.0-94.0 [facility] Comment on above: Performed By: #### C VDTBH #### [facility] [address] [place] [address] Dr. Armando Dumas MONO # 1.0 103/ul Critically high 0.3-0.8 [facility] Comment on above: Performed By: #### C VDTBH #### [facility] [address] [address] [address] Armando Dumas Monocytes/100 WBC (Bld) 8.7 % Normal 1.7-12.0 [facility] Comment on above: Performed By: #### C VDTBH #### [facility] [address] [address] [address] Armando Dumas NEUT # 9.1 103/ul Critically high 1.4-6.5 [facility] Comment on above: Performed By: #### C VDTBH #### [facility] [address] [address] [address] Armando Dumas Neutrophils/100 WBC (Bld) 77.1 % Critically high 43.0-75.0 [facility] Comment on above: Performed By: #### C VDTBH #### [facility] [address] [place] [address] Dr. Armando Dumas Platelet mean volume (Bld) [Entitic vol] 9.7 fL Normal 9.5-13.5 [facility] Comment on above: Performed By: #### C VDTBH #### [facility] [address] [place] [address] Dr. Armando Dumas PLT 189 103/ul Normal 150-450 [facility] Comment on above: Performed By: #### C VDTBH #### [facility] [address] [place] [address] Dr. Armando Dumas RBC 3.66 106/ul Critically low 4.70-6.10 [facility] Comment on above: Performed By: #### C VDTBH #### [facility] [address] [place] [address] Dr. Armando Dumas WBC 11.8 103/ul Critically high 4.0-11.0 [facility] Comment on above: Performed By: #### C VDTBH #### [facility] [address] [place] [address] Dr. Armando Dumas LACTATE/LACTIC ACIDon 2022 Lactate [Moles/Vol] 1.3 mmol/L Normal 0.4-2.0 [facility] Comment on above: Performed By: #### C BC #### [facility] [address] [place] [address] Dr. Armando Dumas POINT OF CARE GLUCOSEon 08-03 Glucose [Mass/Vol] 151 mg/dL Critically high 74-106 [facility] Comment on above: Performed By: #### P OCGLUC #### [facility] [address] [place] [address] Dr. Armando Dumas Glucose [Mass/Vol] 124 mg/dL Critically high 74-106 [facility] Comment on above: Performed By: #### P OCGLUC #### [facility] [address] [place] [address] Dr. Armando Dumas PROF 14(COMP METB)on 023 Albumin [Mass/Vol] 3.1 g/dL Critically low 3.4-5.0 [facility] Comment on above: Performed By: #### C BC #### [facility] [address] [place] [address] Dr. Armando Dumas Albumin/Globulin [Mass ratio] 1.2 {ratio} Normal [facility] Comment on above: Performed By: #### C BC #### [facility] [address] [place] [address] Dr. Armando Dumas ALP [Catalytic activity/Vol] 61 U/L Normal 46-116 [facility] Comment on above: Performed By: #### C BC #### [facility] [address] [place] [address] Dr. Armando Dumas ALT [Catalytic activity/Vol] 16 U/L Normal 16-63 [facility] Comment on above: Performed By: #### C BC #### [facility] [address] [place] [address] Dr. Armando Dumas Anion gap [Moles/Vol] 8.4 mmol/L Normal [facility] Comment on above: Performed By: #### C BC #### [facility] [address] [place] [address] Dr. Armando Dumas AST [Catalytic activity/Vol] 18 U/L Normal 15-37 [facility] Comment on above: Performed By: #### C BC #### [facility] [address] [place] [address] Dr. Armando Dumas Bilirubin [Mass/Vol] 1.2 mg/dL Critically high 0.2-1.0 [facility] Comment on above: Performed By: #### C BC #### [facility] [address] [place] [address] Dr. Armando Dumas Calcium [Mass/Vol] 8.5 mg/dL Normal 8.5-10.1 [facility] Comment on above: Performed By: #### C BC #### [facility] [address] [place] [address] Dr. Armando Dumas Chloride [Moles/Vol] 104 mmol/L Normal 98-107 [facility] Comment on above: Performed By: #### C BC #### [facility] [address] [place] [address] Dr. Armando Dumas CO2 [Moles/Vol] 30.7 mmol/L Normal 21.0-32.0 [facility] Comment on above: Performed By: #### C BC #### [facility] [address] [place] [address] Dr. Armando Dumas Creatinine [Mass/Vol] 1.03 mg/dL Normal 0.70-1.30 [facility] Comment on above: Performed By: #### C BC #### [facility] [address] [place] [address] Dr. Armando Dumas EGFR-AF ROMANIAN >60 Normal >=60 [facility] Comment on above: Performed By: #### C BC #### [facility] [address] [place] [address] Dr. Armando Dumas EGFR-NON AF ROMANIAN >60 Normal >=60 [facility] Comment on above: Performed By: #### C BC #### [facility] [address] [place] [address] Dr. Armando Dumas Globulin (S) [Mass/Vol] 2.5 g/dL Normal [facility] Comment on above: Performed By: #### C BC #### [facility] [address] [address] [address] Armando Dumas Glucose [Mass/Vol] 110 mg/dL Critically high 74-106 [facility] Comment on above: Performed By: #### C BC #### [facility] [address] [address] [address] Armando Dumas Potassium [Moles/Vol] 4.1 mmol/L Normal 3.5-5.1 [facility] Comment on above: Performed By: #### C BC #### [facility] [address] [address] [address] Armando Dumas Protein [Mass/Vol] 5.6 g/dL Critically low 6.4-8.2 [facility] Comment on above: Performed By: #### C BC #### [facility] [address] [place] [address] Dr. Armando Dumas Sodium [Moles/Vol] 139 mmol/L Normal 136-145 [facility] Comment on above: Performed By: #### C BC #### [facility] [address] [place] [address] Dr. Armando Dumas Urea nitrogen [Mass/Vol] 16.0 mg/dL Normal 7.0-18.0 [facility] Comment on above: Performed By: #### C BC #### [facility] [address] [place] [address] Dr. Armando Dumas Urea nitrogen/Creatinine [Mass ratio] 15.5 mg/mg Normal [facility] Comment on above: Performed By: #### C BC #### [facility] [address] [place] [address] Dr. Armando Dumas CBC AUTO DIFFon 08-20-2022 BASO # 0.0 103/ul Normal 0.0-0.1 [facility] Comment on above: Performed By: #### C BC #### [facility] [address] [address] [address] Armando Dumas Basophils/100 WBC (Bld) 0.1 % Critically low 0.2-2.0 [facility] Comment on above: Performed By: #### C BC #### [facility] [address] [place] [address] Dr. Armando Dumas EO # 0.0 103/ul Normal 0.0-0.7 [facility] Comment on above: Performed By: #### C BC #### [facility] [address] [place] [address] Dr. Armando Dumas Eosinophils/100 WBC (Bld) 0.1 % Critically low 0.9-7.0 [facility] Comment on above: Performed By: #### C BC #### [facility] [address] [place] [address] Dr. Armando Dumas Erythrocyte distribution width (RBC) [Ratio] 13.0 % Normal 11.0-15.0 [facility] Comment on above: Performed By: #### C BC #### [facility] [address] [place] [address] Dr. Armando Dumas Hematocrit (Bld) [Volume fraction] 40.7 % Critically low 42.0-54.0 [facility] Comment on above: Performed By: #### C BC #### [facility] [address] [place] [address] Dr. Armando Dumas Hemoglobin (Bld) [Mass/Vol] 13.8 g/dL Critically low 14.0-18.0 [facility] Comment on above: Performed By: #### C BC #### [facility] [address] [place] [address] Dr. Armando Dumas IG # 0.08 10e3/ul Critically high 0.00-0.03 [facility] Comment on above: Performed By: #### C BC #### [facility] [address] [place] [address] Dr. Armando Dumas IG % 0.5 % Normal 0.0-0.5 [facility] Comment on above: Performed By: #### C BC #### [facility] [address] [place] [address] Dr. Armando Dumas LYMPH # 0.4 103/ul Critically low 1.2-3.8 [facility] Comment on above: Performed By: #### C BC #### [facility] [address] [address] [address] Armando Dumas Lymphocytes/100 WBC (Bld) 2.6 % Critically low 20.5-60.0 [facility] Comment on above: Performed By: #### C BC #### [facility] [address] [address] [address] Armando Dumas MANUAL DIFF REQ NO Normal [facility] Comment on above: Performed By: #### C BC #### [facility] [address] [address] [address] Armando Dumas MCH (RBC) [Entitic mass] 31.2 pg Normal 25.9-34.0 [facility] Comment on above: Performed By: #### C BC #### [facility] [address] [place] [address] Dr. Armando Dumas MCHC (RBC) [Mass/Vol] 33.9 g/dL Normal 29.9-35.2 [facility] Comment on above: Performed By: #### C BC #### [facility] [address] [place] [address] Dr. Armando Dumas MCV (RBC) [Entitic vol] 92.1 fL Normal 80.0-94.0 [facility] Comment on above: Performed By: #### C BC #### [facility] [address] [place] [address] Dr. Armando Dumas MONO # 0.8 103/ul Normal 0.3-0.8 [facility] Comment on above: Performed By: #### C BC #### [facility] [address] [place] [address] Dr. Armando Dumas Monocytes/100 WBC (Bld) 5.4 % Normal 1.7-12.0 [facility] Comment on above: Performed By: #### C BC #### [facility] [address] [place] [address] Dr. Armando Dumas NEUT # 13.8 103/ul Critically high 1.4-6.5 [facility] Comment on above: Performed By: #### C BC #### [facility] [address] [place], [place] [address] Dr. Armando Dumas Neutrophils/100 WBC (Bld) 91.3 % Critically high 43.0-75.0 [facility] Comment on above: Performed By: #### C BC #### [facility] [address] [place], [place] [address] Dr. Armando Dumas Platelet mean volume (Bld) [Entitic vol] 9.7 fL Normal 9.5-13.5 [facility] Comment on above: Performed By: #### C BC #### [facility] [address] [place], [place] [address] Dr. Armando Dumas PLT 206 103/ul Normal 150-450 [facility] Comment on above: Performed By: #### C BC #### [facility] [address] [address] [address] Armando Dumas RBC 4.42 106/ul Critically low 4.70-6.10 [facility] Comment on above: Performed By: #### C BC #### [facility] [id number] Armando Dumas WBC 15.1 103/ul Critically high 4.0-11.0 [facility] Comment on above: Result Comment: mona newberry with slide Performed By: #### C BC #### [facility] [id number] Armando Dumas [address] ABD/PELVIS WO CONon 08-20 CT ABD/PELVIS WO CON EXAMINATION: CT ABD/PELVIS WO CON, 08/20/2022 5:42 PM EDT HISTORY: UNSPECIFIED ABDOMINAL PAIN COMPARISON: CT of the abdomen and pelvis from 10/22/2019 TECHNIQUE: Axial CT imaging was performed through the abdomen and pelvis without intravenous contrast. Multiplanar reformats were performed. Dose reduction techniques were achieved by using automated exposure control and/or adjustment of mA and/or kV according to patient size and/or use of iterative reconstruction technique. FINDINGS: Lung bases: Lung bases are clear. No pleural effusion. GI upper: Small hiatal hernia Liver: Normal size and contour. Gallbladder: No significant abnormality. No cholelithiasis. Biliary system: No intra or extrahepatic biliary ductal dilatation. Spleen: Normal size. Pancreas: Unremarkable. Adrenal glands: Normal adrenal glands. Kidneys/ureters: Normal contours. No hydronephrosis. There is a 0.3 cm nonobstructing left renal stone.. There are bilateral renal cysts, measuring up to 7.1 cm on the right. Vessels: No aneurysm. Lymph Nodes: No lymphadenopathy. Small bowel: No wall thickening or dilatation. Colon: No wall thickening or dilatation. There are colonic diverticula without evidence of acute diverticulitis. Appendix: No findings of appendicitis. Peritoneal cavity: No free fluid or peritoneum. Lower : Unremarkable. Bones: No acute bony abnormality. There are degenerative changes of the lumbar spine. Soft tissues: No acute finding. Additional findings: None. IMPRESSION: 0.3 cm nonobstructing left renal stone. Small hiatal hernia. Electronically authenticated by: PEDRO MILLIGAN Date: 2022-08-20 18:57 Normal [facility] CULTURE BLOODon 08-20-2022 Microscopic examination of blood, culture Culture Observations: NO GROWTH AT 5 DAYS. Normal [facility] Comment on above: Performed By: #### C VDTB #### [facility] [address] [address] [address] Armando Dumas Microscopic examination of blood, culture Culture Observations: NO GROWTH AT 5 DAYS. Normal [facility] Comment on above: Performed By: #### C VDTB #### [facility] [address] [place] [address] Dr. Armando Dumas Covid-19 PCR ([facility])on 08-02 SARS-CoV-2 (COVID-19) RNA JAY+probe Ql (Unsp spec) Not detected Normal NOT DETECTED [facility] Comment on above: Result Comment: When diagnostic testing is negative, the possibility of a false negative should be considered in the context of a patient's recent exposures and the presence of clinical signs and symptoms consistent with SARS-CoV-2. This test is not yet approved or cleared by the [place] FDA. When there are no FDA-approved or cleared tests available, and other criteria are met, FDA can make tests available under an emergency access mechanism called an Emergency Use Authorization (EUA). The EUA for this test is supported by the Oxygraph Operator of Health and Human Service's declaration that circumstances exist to justify the emergency use of in vitro diagnostics for the detection and/or diagnosis of the virus that causes COVID-19. This EUA will remain in effect for the duration of the COVID-19 declaration justifying emergency of IVDs, unless it is terminated or revoked by the FDA (after which the test may no longer be used). Performed By: #### C VDTB #### [facility] [address] [place] [address] Dr. Armando Dumas ER URINE PROFILEon 3 Bilirubin Ql (U) Negative Normal NEGATIVE [facility] Comment on above: Performed By: #### E NEYR, UMICRO #### [facility] [address] [place] [address] Dr. Armando Dumas Clarity (U) CLEAR Normal CLEAR [facility] Comment on above: Performed By: #### Jagdeep ZAIDI, UMICRO #### [facility] [address] [place] [address] Dr. Armando Dumas Color (U) LT. YELLOW Normal YELLOW [facility] Comment on above: Performed By: #### Jagdeep ZAIDI, UMICRO #### [facility] [address] [place] [address] Dr. Armando WILD A micrscopic examination will be performed if indicated. Normal [facility] Comment on above: Performed By: #### Jagdeep ZAIDI UMICRO #### [facility] [address] [place] [address] Dr. Armando Dumas Glucose Ql (U) 100 mg/dl Abnormal NEGATIVE [facility] Comment on above: Performed By: #### E RUR, UMICRO #### [facility] [address] [place] [address] Dr. Armando Dumas Hemoglobin Ql (U) TRACE-LYSED Abnormal NEGATIVE [facility] Comment on above: Performed By: #### E RUR, UMICRO #### [facility] [address] [place] [address] Dr. Armando Dumas Ketones Ql (U) 40 mg/dl Abnormal NEGATIVE [facility] Comment on above: Performed By: #### BARBARA WOODARD #### [facility] [address] [place] [address] Dr. Armando Dumas LEUKOCYTES Negative Normal NEGATIVE [facility] Comment on above: Performed By: #### BARBARA WOODARD #### [facility] [address] [place] [address] Dr. Armando Dumas Nitrite Ql (U) Negative Normal NEGATIVE [facility] Comment on above: Performed By: #### BARBARA WOODARD #### [facility] [address] [place] [address] Dr. Armando Dumas pH (U) 6.0 [pH] Normal 5-9 [facility] Comment on above: Performed By: #### BARBARA WOODARD #### [facility] [address] [place] [address] Dr. Armando Dumas SPEC GRAVITY 1.010 Normal 1.005-<=1.02 5 [facility] Comment on above: Performed By: #### BARBARA WOODARD #### [facility] [address] [place] [address] Dr. Armando Dumas UA PROTEIN Negative Normal NEGATIVE/ TRACE [facility] Comment on above: Performed By: #### BARBARA WOODARD #### [facility] [address] [place] [address] Dr. Armando Dumas UR MICRO IND INDICATED Normal [facility] Comment on above: Performed By: #### BARBARA WOODARD #### [facility] [address] [place] [address] Dr. Armando Dumas Urobilinogen Qn (U) 0.2 {Cuate'U}/dL Normal 0.2 - 1. 0 [facility] Comment on above: Performed By: #### BARBARA WOODARD #### [facility] [address] [place] [address] Dr. rAmando Dumas LACTATE/LACTIC ACIDon 2022 Lactate [Moles/Vol] 3.6 mmol/L Critically high 0.4-2.0 [facility] Comment on above: Performed By: #### C BC #### [facility] [address] [address] [address] Armando Dumas Lactate [Moles/Vol] 6.4 mmol/L Critically high 0.4-2.0 [facility] Comment on above: Performed By: #### C MP #### [facility] [address] [place] [address] Dr. Armando Dumas PROF 14(COMP METB)on 023 Albumin [Mass/Vol] 4.2 g/dL Normal 3.4-5.0 [facility] Comment on above: Performed By: #### C BC #### [facility] [address] [place] [address] Dr. Armando Dumas Albumin/Globulin [Mass ratio] 1.4 {ratio} Normal [facility] Comment on above: Performed By: #### C BC #### [facility] [address] [place] [address] Dr. Armando Dumas ALP [Catalytic activity/Vol] 101 U/L Normal 46-116 [facility] Comment on above: Performed By: #### C BC #### [facility] [address] [place] [address] Dr. Armando Dumas ALT [Catalytic activity/Vol] 21 U/L Normal 16-63 [facility] Comment on above: Performed By: #### C BC #### [facility] [address] [place] [address] Dr. Armando Dumas Anion gap [Moles/Vol] 17.2 mmol/L Normal [facility] Comment on above: Performed By: #### C BC #### [facility] [address] [place] [address] Dr. Armando Dumas AST [Catalytic activity/Vol] 21 U/L Normal 15-37 [facility] Comment on above: Performed By: #### C BC #### [facility] [address] [place] [address] Dr. Armando Dumas Bilirubin [Mass/Vol] 1.9 mg/dL Critically high 0.2-1.0 [facility] Comment on above: Performed By: #### C BC #### [facility] [address] [address] [address] Armando Dumas Calcium [Mass/Vol] 9.6 mg/dL Normal 8.5-10.1 [facility] Comment on above: Performed By: #### C BC #### [facility] [address] [address] [address] Armando Dumas Chloride [Moles/Vol] 99 mmol/L Normal 98-107 [facility] Comment on above: Performed By: #### C BC #### [facility] [address] [address] [address] Armando Dumas CO2 [Moles/Vol] 26.1 mmol/L Normal 21.0-32.0 [facility] Comment on above: Performed By: #### C BC #### [facility] [address] [place] [address] Dr. Armando Dumas Creatinine [Mass/Vol] 1.24 mg/dL Normal 0.70-1.30 [facility] Comment on above: Performed By: #### C BC #### [facility] [address] [place] [address] Dr. Armando Dumas EGFR-AF ROMANIAN >60 Normal >=60 [facility] Comment on above: Performed By: #### C BC #### [facility] [address] [place] [address] Dr. Armando Dumas EGFR-NON AF ROMANIAN 57 mL/min/1.73m2 Critically low >=60 [facility] Comment on above: Performed By: #### C BC #### [facility] [address] [place] [address] Dr. Armando Dumas Globulin (S) [Mass/Vol] 3.0 g/dL Normal [facility] Comment on above: Performed By: #### C BC #### [facility] [address] [place] [address] Dr. Armando Dumas Glucose [Mass/Vol] 192 mg/dL Critically high 74-106 [facility] Comment on above: Performed By: #### C BC #### [facility] [address] [place] [address] Dr. Armando Dumas Potassium [Moles/Vol] 4.3 mmol/L Normal 3.5-5.1 [facility] Comment on above: Performed By: #### C BC #### [facility] [address] [place] [address] Dr. Armando Dumas Protein [Mass/Vol] 7.2 g/dL Normal 6.4-8.2 [facility] Comment on above: Performed By: #### C BC #### [facility] [address] [place] [address] Dr. Armando Dumas Sodium [Moles/Vol] 138 mmol/L Normal 136-145 [facility] Comment on above: Performed By: #### C BC #### [facility] [address] [place] [address] Dr. Armando Dumas Urea nitrogen [Mass/Vol] 12.0 mg/dL Normal 7.0-18.0 [facility] Comment on above: Performed By: #### C BC #### [facility] [address] [place] [address] Dr. Armando Dumas Urea nitrogen/Creatinine [Mass ratio] 9.7 mg/mg Normal [facility] Comment on above: Performed By: #### C BC #### [facility] [address] [place] [address] Dr. Armando Dumas URINE MICROSCOPIC ONLYon BACTERIA NONE SEEN Normal NONE SEEN [facility] Comment on above: Performed By: #### STEFANO WOODARDRO #### [facility] [address] [place] [address] Dr. Armando Dumas Bacteria identified Cx Nom (U) NOT INDICATED Normal [facility] Comment on above: Performed By: #### STEFANO WOODARDRO #### [facility] [address] [place] [address] Dr. Armando Dumas CAST NONE SEEN Normal NONE SEEN [facility] Comment on above: Performed By: #### STEFANO WOODARDRO #### [facility] [address] [place] [address] Dr. Armando Dumas Crystals LM Nom (Urine sed) NONE SEEN Normal NONE SEEN [facility] Comment on above: Performed By: #### E RUR, UMICRO #### [facility] [address] [address] [address] Armando Dumas Epithelial cells LM Ql (Urine sed) NONE SEEN Normal NONE SEEN /RARE [facility] Comment on above: Performed By: #### E RUR, UMICRO #### [facility] [address] [address] [address] Armando Dumas MUCOUS NONE SEEN Normal NONE SEEN [facility] Comment on above: Performed By: #### E RUR, UMICRO #### [facility] [address] [address] [address] Armando Dumas RBC 0-2 Normal 0-2 [facility] Comment on above: Performed By: #### E RUR, UMICRO #### [facility] [address] [place] [address] Dr. Armando Dumas WBC NONE SEEN Normal NONE SEEN [facility] Comment on above: Performed By: #### E RUR, UMICRO #### [facility] [address] [place] [address] Dr. Armando Dumas XR RIBS LT PA Brandy 3 XR RIBS LT PA CH EXAMINATION: XR RIBS LT PA CH HISTORY: Chest pain ; anterior left rib pain after falling COMPARISON: XR chest 07/12/2021 FINDINGS: LUNGS: No significant pulmonary parenchymal abnormalities. PLEURA: No pneumothorax, effusion, or pleural thickening. MEDIASTINUM: No visible mass or adenopathy. CARDIAC: No cardiomegaly or cardiac silhouette abnormality. RIBS: Old healed lateral right rib fractures. No appreciable left rib fracture. OTHER: Negative. IMPRESSION: 1. No appreciable left rib fracture(s) to account for patient's symptoms. 2. No acute cardiopulmonary process. Electronically authenticated by: СВЕТЛАНА [place] Date: 2022-07-27 10:43 Normal [facility] GLYCOHEMOGLOBIN A1Con 2022 ADA RECOMMENDATION SEE BELOW Normal [facility] Comment on above: Result Comment: ADA RECOMMENDED LIMIT 4.0 - 6.0 ADA THERAPEUTIC TARGET < 7.0 ACTION SUGGESTED > 7.0 Performed By: #### A 1C #### [facility] [address] [place] [address] Dr. Armando Dumas Glucose [Mass/Vol] 134 mg/dL Normal [facility] Comment on above: Performed By: #### A 1C #### [facility] [address] [place] [address] Dr. Armando Dumas HbA1c (Bld) [Mass fraction] 6.3 % Critically high 4.5-6.2 [facility] Comment on above: Performed By: #### A 1C #### [facility] [address] [place] [address] Dr. Armando Dumas CBC AUTO DIFFon 03-08-2022 BASO # 0.0 103/ul Normal 0.0-0.1 [facility] Comment on above: Performed By: #### C BC #### [facility] [address] [place] [address] Dr. Armando Dumas Basophils/100 WBC (Bld) 0.4 % Normal 0.2-2.0 [facility] Comment on above: Performed By: #### C BC #### [facility] [address] [place] [address] Dr. Armando Dumas EO # 0.7 103/ul Normal 0.0-0.7 [facility] Comment on above: Performed By: #### C BC #### [facility] [address] [place] [address] Dr. Armando Dumas Eosinophils/100 WBC (Bld) 6.9 % Normal 0.9-7.0 [facility] Comment on above: Performed By: #### C BC #### [facility] [address] [place] [address] Dr. Armando Dumas Erythrocyte distribution width (RBC) [Ratio] 14.4 % Normal 11.0-15.0 [facility] Comment on above: Performed By: #### C BC #### [facility] [address] [place] [address] Dr. Armando Dumas Hematocrit (Bld) [Volume fraction] 36.2 % Critically low 42.0-54.0 [facility] Comment on above: Performed By: #### C BC #### [facility] [address] [address] [address] Armando Dumas Hemoglobin (Bld) [Mass/Vol] 11.6 g/dL Critically low 14.0-18.0 [facility] Comment on above: Performed By: #### C BC #### [facility] [address] [address] [address] Armando Dumas IG # 0.03 10e3/ul Normal 0.00-0.03 [facility] Comment on above: Performed By: #### C BC #### [facility] [address] [place] [address] Dr. Armando Dumas IG % 0.3 % Normal 0.0-0.5 [facility] Comment on above: Performed By: #### C BC #### [facility] [address] [place] [address] Dr. Armando Dumas LYMPH # 1.9 103/ul Normal 1.2-3.8 [facility] Comment on above: Performed By: #### C BC #### [facility] [address] [place] [address] Dr. Armando Dumas Lymphocytes/100 WBC (Bld) 19.1 % Critically low 20.5-60.0 [facility] Comment on above: Performed By: #### C BC #### [facility] [address] [place] [address] Dr. Armando Dumas MANUAL DIFF REQ NO Normal [facility] Comment on above: Performed By: #### C BC #### [facility] [address] [place] [address] Dr. Armando Dumas MCH (RBC) [Entitic mass] 30.0 pg Normal 25.9-34.0 [facility] Comment on above: Performed By: #### C BC #### [facility] [address] [place] [address] Dr. Armando Dumas MCHC (RBC) [Mass/Vol] 32.0 g/dL Normal 29.9-35.2 [facility] Comment on above: Performed By: #### C BC #### [facility] [address] [address] [address] Armando Dumas MCV (RBC) [Entitic vol] 93.5 fL Normal 80.0-94.0 [facility] Comment on above: Performed By: #### C BC #### [facility] [address] [address] [address] Armando Dumas MONO # 0.9 103/ul Critically high 0.3-0.8 [facility] Comment on above: Performed By: #### C BC #### [facility] [address] [address] [address] Armando Dumas Monocytes/100 WBC (Bld) 9.0 % Normal 1.7-12.0 [facility] Comment on above: Performed By: #### C BC #### [facility] [address] [place] [address] Dr. Armando Dumas NEUT # 6.3 103/ul Normal 1.4-6.5 [facility] Comment on above: Performed By: #### C BC #### [facility] [address] [address] [address] Armando Dumas Neutrophils/100 WBC (Bld) 64.3 % Normal 43.0-75.0 [facility] Comment on above: Performed By: #### C BC #### [facility] [address] [address] [address] Armando Dumas Platelet mean volume (Bld) [Entitic vol] 10.1 fL Normal 9.5-13.5 [facility] Comment on above: Performed By: #### C BC #### [facility] [address] [address] [address] Armando Dumas PLT 204 103/ul Normal 150-450 [facility] Comment on above: Performed By: #### C BC #### [facility] [address] [address] [address] Armando Dumas RBC 3.87 106/ul Critically low 4.70-6.10 [facility] Comment on above: Performed By: #### C BC #### [facility] [address] [place], [place] [address] Dr. Armando Dumas WBC 9.7 103/ul Normal 4.0-11.0 [facility] Comment on above: Performed By: #### C #### [facility] [address] [place], [place] [address] STROKE HEAD WOon 03-08-20 CT STROKE HEAD WO EXAMINATION: CT STROKE HEAD WO HISTORY: Frontal headache and aplasia. TECHNIQUE: Axial CT scans through the head were obtained without IV contrast administration. Dose reduction techniques were achieved by using: automated exposure control and/or adjustment of mA and/or kV according to patient size and/or use of iterative reconstruction technique. COMPARISON: 02/21/2021. FINDINGS: Moderate periventricular and subcortical low attenuation in the cerebral hemispheres without associated mass effect. 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 The previous subarachnoid hemorrhage at the anterior medial aspect of the left parietal lobe has resolved. Development of a small amount of probably subacute slightly hyperdense subarachnoid hemorrhage at the left parietal The brainstem and the cerebellum appear normal. The ventricular system and cortical sulci are prominent, secondary to cerebral volume loss. No area of abnormal mass effect, edema, or intracranial hemorrhage is shown. The visualized orbits appear normal. The visualized paranasal sinuses show no air-fluid level. Mastoid air cells are clear. IMPRESSION: Development of a small amount of probably subacute slightly hyperdense subarachnoid hemorrhage at the left parietal lobe. MRI without and with IV contrast would be helpful to exclude a neoplastic meningeal process which can cause similar appearance. Moderate old ischemic changes in the white matter of the cerebral hemispheres. 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 Age-related cerebral volume loss. Dr. Beltrán was notified of critical result by myself at 10:53 PM. Electronically authenticated by: JASSON CARROLL Date: 2022-03-07 22:55 Normal [facility]on SARS-CoV-2 (COVID-19) RNA JAY+probe Ql (Unsp spec) Not detected Normal NOT DETECTED [facility] Comment on above: Result Comment: When diagnostic testing is negative, the possibility of a false negative should be considered in the context of a patient's recent exposures and the presence of clinical signs and symptoms consistent with SARS-CoV-2. This test is not yet approved or cleared by the [place] FDA. When there are no FDA-approved or cleared tests available, and other criteria are met, FDA can make tests available under an emergency access mechanism called an Emergency Use Authorization (EUA). The EUA for this test is supported by the Oxygraph Operator of Health and Human Service's declaration that circumstances exist to justify the emergency use of in vitro diagnostics for the detection and/or diagnosis of the virus that causes COVID-19. This EUA will remain in effect for the duration of the COVID-19 declaration justifying emergency of IVDs, unless it is terminated or revoked by the FDA (after which the test may no longer be used). Performed By: #### [facility] #### [facility] [address] [place] [address] Dr. Armando Dumas PROF 14(COMP METB)on 022 Albumin [Mass/Vol] 3.6 g/dL Normal 3.4-5.0 [facility] Comment on above: Performed By: #### C MP #### [facility] [address] [place] [address] Dr. Armando Dumas Albumin/Globulin [Mass ratio] 1.2 {ratio} Normal [facility] Comment on above: Performed By: #### C MP #### [facility] [address] [place] [address] Dr. Armando Dumas ALP [Catalytic activity/Vol] 77 U/L Normal 46-116 [facility] Comment on above: Performed By: #### C MP #### [facility] [address] [place] [address] Dr. Armando Dumas ALT [Catalytic activity/Vol] 24 U/L Normal 16-63 [facility] Comment on above: Performed By: #### C MP #### [facility] [address] [place] [address] Dr. Armando Dumas Anion gap [Moles/Vol] 7.2 mmol/L Normal [facility] Comment on above: Performed By: #### C MP #### [facility] [address] [place] [address] Dr. Armando Dumas AST [Catalytic activity/Vol] 28 U/L Normal 15-37 [facility] Comment on above: Performed By: #### C MP #### [facility] [address] [place] [address] Dr. Armando Dumas Bilirubin [Mass/Vol] 0.9 mg/dL Normal 0.2-1.0 [facility] Comment on above: Performed By: #### C MP #### [facility] [address] [address] [address] Armando Dumas Calcium [Mass/Vol] 8.9 mg/dL Normal 8.5-10.1 [facility] Comment on above: Performed By: #### C MP #### [facility] [address] [place] [address] Dr. Armando Dumas Chloride [Moles/Vol] 101 mmol/L Normal 98-107 [facility] Comment on above: Performed By: #### C MP #### [facility] [address] [place] [address] Dr. Armando Dumas CO2 [Moles/Vol] 30.1 mmol/L Normal 21.0-32.0 [facility] Comment on above: Performed By: #### C MP #### [facility] [address] [place] [address] Dr. Armando Dumas Creatinine [Mass/Vol] 1.14 mg/dL Normal 0.70-1.30 [facility] Comment on above: Performed By: #### C MP #### [facility] [address] [place] [address] Dr. Armando Dumas EGFR-AF ROMANIAN >60 Normal >=60 [facility] Comment on above: Performed By: #### C MP #### [facility] [address] [place] [address] Dr. Armando Dumas EGFR-NON AF ROMANIAN >60 Normal >=60 [facility] Comment on above: Performed By: #### C MP #### [facility] [address] [place] [address] Dr. Armando Dumas Globulin (S) [Mass/Vol] 3.0 g/dL Normal [facility] Comment on above: Performed By: #### C MP #### [facility] [address] [address] [address] Armando Dumas Glucose [Mass/Vol] 96 mg/dL Normal 74-106 [facility] Comment on above: Performed By: #### C MP #### [facility] [address] [address] [address] Armando Dumas Potassium [Moles/Vol] 4.3 mmol/L Normal 3.5-5.1 [facility] Comment on above: Performed By: #### C MP #### [facility] [address] [address] [address] Armando Dumas Protein [Mass/Vol] 6.6 g/dL Normal 6.4-8.2 [facility] Comment on above: Performed By: #### C MP #### [facility] [address] [address] [address] Armando Dumas Sodium [Moles/Vol] 134 mmol/L Critically low 136-145 [facility] Comment on above: Performed By: #### C MP #### [facility] [address] [address] [address] Armando Dumas Urea nitrogen [Mass/Vol] 16.0 mg/dL Normal 7.0-18.0 [facility] Comment on above: Performed By: #### C MP #### [facility] [address] [address] [address] Armando Dumas Urea nitrogen/Creatinine [Mass ratio] 14.0 mg/mg Normal [facility] Comment on above: Performed By: #### C MP #### [facility] [address] [address] [address] Armando Dumas PROTIMEon 03-08-2022 INR Coag (PPP) [Relative time] 1.89 {INR} Normal [facility] Comment on above: Performed By: #### C BC #### [facility] [address] [address] [address] Armando Dumas INR GUIDELINES SEE BELOW Normal [facility] Comment on above: Result Comment: KATIE RED INR: 2.0 - 3.0 CONDITIONS NOT LISTED BELOW 2.5 - 3.5 FOR PROSTHETIC HEART VALVE REPLACEMENT 2.5 - 3.5 RECURRENT THROMBOSIS Performed By: #### C BC #### [facility] [address] [place] [address] Dr. Armando Dumas PT Coag (PPP) [Time] 19.6 s Critically high 9.0-11.6 [facility] Comment on above: Performed By: #### C BC #### [facility] [address] [place] [address] Dr. Armando Dumas PTTon 03-08-2022 aPTT Coag (Bld) [Time] 34.9 s Normal 22.3-36.2 [facility] Comment on above: Performed By: #### C BC #### [facility] [address] [place] [address] Dr. Armando Dmuas CBC AUTO DIFFon 11-10-2021 BASO # 0.0 103/ul Normal 0.0-0.1 [facility] Comment on above: Performed By: #### C BC #### [facility] [address] [place] [address] Dr. Armando Dumas Basophils/100 WBC (Bld) 0.4 % Normal 0.2-2.0 [facility] Comment on above: Performed By: #### C BC #### [facility] [address] [place] [address] Dr. Armando Dumas EO # 0.6 103/ul Normal 0.0-0.7 [facility] Comment on above: Performed By: #### C BC #### [facility] [address] [place] [address] Dr. Armando Dumas Eosinophils/100 WBC (Bld) 8.5 % Critically high 0.9-7.0 [facility] Comment on above: Performed By: #### C BC #### [facility] [address] [place] [address] Dr. Armando Dumas Erythrocyte distribution width (RBC) [Ratio] 14.8 % Normal 11.0-15.0 [facility] Comment on above: Performed By: #### C BC #### [facility] [address] [place] [address] Dr. Armando Dumas Hematocrit (Bld) [Volume fraction] 37.3 % Critically low 42.0-54.0 [facility] Comment on above: Performed By: #### C BC #### [facility] [address] [place] [address] Dr. Armando Dumas Hemoglobin (Bld) [Mass/Vol] 11.6 g/dL Critically low 14.0-18.0 [facility] Comment on above: Performed By: #### C BC #### [facility] [address] [place] [address] Dr. Armando Dumas IG # 0.03 10e3/ul Normal 0.00-0.03 [facility] Comment on above: Performed By: #### C BC #### [facility] [facility] [address] [place] [address] Dr. Armando Dumas IG % 0.4 % Normal 0.0-0.5 [facility] Comment on above: Performed By: #### C BC #### [facility] [address] [place] [address] Dr. Armando Dumas LYMPH # 1.3 103/ul Normal 1.2-3.8 [facility] Comment on above: Performed By: #### C BC #### [facility] [address] [place] [address] Dr. Aramndo Dumas Lymphocytes/100 WBC (Bld) 17.3 % Critically low 20.5-60.0 [facility] Comment on above: Performed By: #### C BC #### [facility] [address] [place] [address] Dr. Armando Dumas MANUAL DIFF REQ NO Normal [facility] Comment on above: Performed By: #### C BC #### [facility] [address] [place] [address] Dr. Armando Dumas MCH (RBC) [Entitic mass] 29.2 pg Normal 25.9-34.0 [facility] Comment on above: Performed By: #### C BC #### [facility] [address] [place] [address] Dr. Armando Dumas MCHC (RBC) [Mass/Vol] 31.1 g/dL Normal 29.9-35.2 [facility] Comment on above: Performed By: #### C BC #### [facility] [address] [place] [address] Dr. Armando Dumas MCV (RBC) [Entitic vol] 94.0 fL Normal 80.0-94.0 [facility] Comment on above: Performed By: #### C BC #### [facility] [address] [place] [address] Dr. Armando Dumas MONO # 0.6 103/ul Normal 0.3-0.8 [facility] Comment on above: Performed By: #### C BC #### [facility] [address] [place] [address] Dr. Armando Dumas Monocytes/100 WBC (Bld) 8.0 % Normal 1.7-12.0 [facility] Comment on above: Performed By: #### C BC #### [facility] [address] [place] [address] Dr. Armando Dumas NEUT # 4.8 103/ul Normal 1.4-6.5 [facility] Comment on above: Performed By: #### C BC #### [facility] [address] [place] [address] Dr. Armando Dumas Neutrophils/100 WBC (Bld) 65.4 % Normal 43.0-75.0 [facility] Comment on above: Performed By: #### C BC #### [facility] [address] [place] [address] Dr. Armando Dumas Platelet mean volume (Bld) [Entitic vol] 9.6 fL Normal 9.5-13.5 [facility] Comment on above: Performed By: #### C BC #### [facility] [address] [place] [address] Dr. Armando Dumas PLT 231 103/ul Normal 150-450 [facility] Comment on above: Performed By: #### C BC #### [facility] [address] [place] [address] Dr. Armando Dumas RBC 3.97 106/ul Critically low 4.70-6.10 [facility] Comment on above: Performed By: #### C BC #### [facility] [address] [address] [address] Armando Dumas WBC 7.4 103/ul Normal 4.0-11.0 [facility] Comment on above: Performed By: #### C BC #### [facility] [address] [address] [address] Armando Dumas GLYCOHEMOGLOBIN A1Con 2021 ADA RECOMMENDATION SEE BELOW Normal [facility] Comment on above: Result Comment: ADA RECOMMENDED LIMIT 4.0 - 6.0 ADA THERAPEUTIC TARGET < 7.0 ACTION SUGGESTED > 7.0 Performed By: #### C BC #### [facility] [address] [place] [address] Dr. Armando Dumas Glucose [Mass/Vol] 137 mg/dL Normal [facility] Comment on above: Performed By: #### C BC #### [facility] [address] [place] [address] Dr. Armando Dumas HbA1c (Bld) [Mass fraction] 6.4 % Critically high 4.5-6.2 [facility] Comment on above: Performed By: #### C BC #### [facility] [address] [place] [address] Dr. Armando Dumas LIPID PROFILEon 11-10-2021 CHOL-HDL RATIO NORM SEE BELOW Normal [facility] Comment on above: Result Comment: 3.3 - 4.4 LOW RISK 4.4 - 7.1 AVERAGE RISK 7.1 - 11.0 MODERATE RISK >11.0 HIGH RISK Performed By: #### C VDTBH #### [facility] [address] [address] [address] Armando Dumas Cholesterol [Mass/Vol] 94 mg/dL Normal <=200 [facility] Comment on above: Performed By: #### C VDTBH #### [facility] [address] [address] [address] Armando Dumas Cholesterol in HDL [Mass/Vol] 40 mg/dL Normal 40-60 [facility] Comment on above: Performed By: #### C VDTBH #### [facility] [address] [address] [address] Armando Dumas Cholesterol in LDL [Mass/Vol] 35.2 mg/dL Normal [facility] Comment on above: Performed By: #### C VDTBH #### [facility] [address] [address] [address] Armando Dumas Cholesterol.total/Cho lesterol in HDL [Mass ratio] 2.4 {ratio} Normal [facility] Comment on above: Performed By: #### C VDTBH #### [facility] [address] [address] [address] Armando Dumas HDL NORMAL > or = 60 mg/dl - LO W CARDIOVASCULAR RISK <40 mg/dl - HIGH CARDIOVASCULAR RISK Normal [facility] Comment on above: Performed By: #### C VDTBH #### [facility] [address] [place] [address] Dr. Armando Dumas LDL CALC NORMAL SEE BELOW Normal [facility] Comment on above: Result Comment: <100 mg/dl OPTIMAL 100 - 129 mg/dl NEAR OR ABOVE OPTIMAL 130 - 159 mg/dl BORDERLINE HIGH 160 - 189 mg/dl HIGH >190 mg/dl VERY HIGH Performed By: #### C VDTBH #### [facility] [address] [place] [address] Dr. Armando Dumas Triglyceride [Mass/Vol] 94 mg/dL Normal <=150 [facility] Comment on above: Performed By: #### C VDTBH #### [facility] [address] [place] [address] Dr. Armando Dumas VLDL CALC 18.8 mg/dL Normal [facility] Comment on above: Performed By: #### C VDTBH #### [facility] [address] [place] [address] Dr. Armando Dumas MICROALBUMIN, RAND URon 06-0 mALB <1.3 Normal <=30.0 [facility] Comment on above: Performed By: #### M ALBR #### [facility] [address] [place] [address] Dr. Armando Dumas PROF CHEM 8 (BAS METB)on Anion gap [Moles/Vol] 10.7 mmol/L Normal [facility] Comment on above: Performed By: #### C VDTBH #### [facility] [address] [place] [address] Dr. Armando Dumas Calcium [Mass/Vol] 9.0 mg/dL Normal 8.5-10.1 [facility] Comment on above: Performed By: #### C VDTBH #### [facility] [address] [place] [address] Dr. Armando Dumas Chloride [Moles/Vol] 102 mmol/L Normal 98-107 [facility] Comment on above: Performed By: #### C VDTBH #### [facility] [address] [place] [address] Dr. Armando Dumas CO2 [Moles/Vol] 30.8 mmol/L Normal 21.0-32.0 [facility] Comment on above: Performed By: #### C VDTBH #### [facility] [address] [place] [address] Dr. Armando Dumas Creatinine [Mass/Vol] 1.03 mg/dL Normal 0.70-1.30 [facility] Comment on above: Performed By: #### C VDTBH #### [facility] [address] [place] [address] Dr. Armando Dumas EGFR-AF ROMANIAN >60 Normal >=60 [facility] Comment on above: Performed By: #### C VDTBH #### [facility] [address] [place] [address] Dr. Armando Dumas EGFR-NON AF ROMANIAN >60 Normal >=60 [facility] Comment on above: Performed By: #### C VDTBH #### [facility] [address] [place] [address] Dr. Armando Dumas Glucose [Mass/Vol] 149 mg/dL Critically high 74-106 [facility] Comment on above: Performed By: #### C VDTBH #### [facility] [address] [address] [address] Armando Dumas Potassium [Moles/Vol] 4.5 mmol/L Normal 3.5-5.1 [facility] Comment on above: Performed By: #### C VDTBH #### [facility] [address] [place] [address] Dr. Armando Dumas Sodium [Moles/Vol] 139 mmol/L Normal 136-145 [facility] Comment on above: Performed By: #### C VDTBH #### [facility] [address] [place] [address] Dr. Aramndo Dumas Urea nitrogen [Mass/Vol] 14.0 mg/dL Normal 7.0-18.0 [facility] Comment on above: Performed By: #### C VDTBH #### [facility] [address] [place] [address] Dr. Armando Dumas Urea nitrogen/Creatinine [Mass ratio] 13.6 mg/mg Normal [facility] Comment on above: Performed By: #### C VDTBH #### [facility] [address] [place] [address] Dr. Armando Augustine 11-10-2021 AST [Catalytic activity/Vol] 15 U/L Normal 15-37 [facility] Comment on above: Performed By: #### C VDTBH #### [facility] [address] [place] [address] Dr. Armando MCADAMSPTon 11-10-2021 ALT [Catalytic activity/Vol] 23 U/L Normal 16-63 [facility] Comment on above: Performed By: #### C VDTBH #### [facility] [address] [place] [address] Dr. 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 She received a request from a Dinorah Roach in Neuro Research. The request was for the pt medical records from 07/20 at [facility]. The pt was never seen at the hospital that day so Sarah is looking for clarification. The last neuro provider Mr. Araujo saw was AMANDA Gastelum on 03/04/21. I do not have a phone number for neuro research so I am sorry if I am sending this to the wrong department. Assessment: n/a Recommendation: Sarah can be reached at [phone]. Option 1 for first phone prompt and option 1 again for second phone prompt. Thank You Normal [facility] ECG 12 lead ECGon 07-14-2021 ECG 12 lead ECG [facility] [place] [address] Electrocardiograph Report Signed Patient: Sravanthi Araujo MR#: [id number] : 1945 Acct:[id number] Age/Sex: 76 / M ADM Date: 07/12/21 Loc: Room: [address] [place] [address] Type: DIS IN Attending Dr: Sanjana Loo MD Ordering Provider: Edin Clifford MD Date of Service: 07/14/2103/25/500 ECG/ECG 12 lead ECG: pericardial effusion Copies to: Test Reason : Blood Pressure : / mmHG Vent. Rate : 088 BPM Atrial Rate : 129 BPM P-R Int : 000 ms QRS Dur : 090 ms QT Int : 374 ms P-R-T Axes : 000 072 055 degrees QTc Int : 452 ms Atrial fibrillation Abnormal ECG When compared with ECG of 13-JUL-2021 10:44, No significant change was found Confirmed by [facility] ([id number]) on 07/14/2021 2:07:40 PM Referred By: Electronically Signed By:CELINE GARCIA MD FAC Transcribed By: MUS Signed By Celine Garcia MD, FACC 07/14/21 1407 Normal [facility] Glucose Poct Glucometerson 0 07-14-2021 Glucose [Mass/Vol] 163 mg/dL Normal [facility] Comment on above: Result Comment: [place] om Glucose Reference Range is dependent on time and content of last meal. Glucose of more than 200 mg/dL in a nonstressed, ambulatory subject supports the diagnosis of Diabetes Mellitus. PERFORMED BY: [place] [address] PATHOLOGIST ETHNOGRAPHER KATHY TELLO M.D. Performed By: #### C BC, PT, PTT, CMP, MG #### [address] Glucose [Mass/Vol] 127 mg/dL Normal [facility] Comment on above: Result Comment: [place] [facility] Glucose Reference Range is dependent on time and content of last meal. Glucose of more than 200 mg/dL in a nonstressed, ambulatory subject supports the diagnosis of Diabetes Mellitus. PERFORMED BY: [place] [address] PATHOLOGIST ETHNOGRAPHER KATHY TELLO M.D. Performed By: #### C BC, PT, PTT, CMP, MG #### [id number] [facility] Prothrombin Time INRon 07-14 INR Coag (PPP) [Relative time] 4.4 {INR} Normal [facility] Comment on above: Result Comment: INR Therapeutic Range A) Pre- and Peroperative OAT started two weeks before surgery. NOT HIP SURGERY: 1.5 - 2.5 HIP SURGERY: 2 - 3 B) Primary and secondary prevention of venous THROMBOSIS: 2 - 3 C) Active venous thrombosis, pulmonary embolism and prevention of recurrent venous thrombosis: 2 - 3 D) Prevention of arterial thromboembolism including patients with mechanical heart valves: 3 - 4.5 PERFORMED BY: [place] [address] PATHOLOGIST ETHNOGRAPHER KATHY TELLO M.D. Performed By: #### P T #### [facility] [address] [place] [id number] [facility] PT Coag (PPP) [Time] 50.2 s High 9.0-12.9 [facility] Comment on above: Performed By: #### P T #### [facility] [address] C-Reactive Proteinon 022 C-Reactive Protein 16.9 mg/dL High 0.0-1.0 [facility] Comment on above: Result Comment: PERF ORMED BY: [place] [address] PATHOLOGIST ETHNOGRAPHER KATHY TELLO M.D. Performed By: #### C BC, PT, PTT, CMP, MG #### [address] Complete Blood Count Auto Di ffon 07-13-2021 Basophils (Bld) [#/Vol] 0.0 10*3/uL Normal 0.0-0.2 [facility] Comment on above: Result Comment: PERF ORMED BY: [place] [address] PATHOLOGIST ETHNOGRAPHER KATHY TELLO M.D. Performed By: #### C BC, PT, PTT, CMP, MG #### [address] Basophils/100 WBC (Bld) 0.3 % Normal . [facility] Comment on above: Performed By: #### C BC, PT, PTT, CMP, MG #### [place] [address] [place] Eosinophils (Bld) [#/Vol] 0.3 10*3/uL Normal 0.0-0.45 [facility] Comment on above: Performed By: #### C BC, PT, PTT, CMP, MG #### [place] [address] [place] Eosinophils/100 WBC (Bld) 3.4 % Normal . [facility] Comment on above: Performed By: #### C BC, PT, PTT, CMP, MG #### [address] Erythrocyte distribution width (RBC) [Ratio] 13.1 % Normal 12.0-14.8 [facility] Comment on above: Performed By: #### C BC, PT, PTT, CMP, MG #### [address] Hematocrit (Bld) [Volume fraction] 30.8 % Low 38.8-50.0 [facility] Comment on above: Performed By: #### C BC, PT, PTT, CMP, MG #### [address] Hemoglobin (Bld) [Mass/Vol] 10.4 g/dL Low 13.0-17.0 [facility] Comment on above: Performed By: #### C BC, PT, PTT, CMP, MG #### [address] Lymphocytes (Bld) [#/Vol] 0.9 10*3/uL Low 1.00-4.8 [facility] Comment on above: Performed By: #### C BC, PT, PTT, CMP, MG #### [address] Lymphocytes/100 WBC (Bld) 10.0 % Normal . [facility] Comment on above: Performed By: #### C BC, PT, PTT, CMP, MG #### [address] MCH (RBC) [Entitic mass] 30.3 pg Normal 27.5-35.2 [facility] Comment on above: Performed By: #### C BC, PT, PTT, CMP, MG #### [address] MCV (RBC) [Entitic vol] 89.9 fL Normal 83.5-101 [facility] Comment on above: Performed By: #### C BC, PT, PTT, CMP, MG #### [address] Mean Corpuscular HGB Conc 33.8 g/dL Normal 32.5-35.6 [facility] Comment on above: Performed By: #### C BC, PT, PTT, CMP, MG #### [facility] [address] [place] [address] Monocytes (Bld) [#/Vol] 1.1 10*3/uL High 0.0-0.8 [facility] Comment on above: Performed By: #### C BC, PT, PTT, CMP, MG #### [address] Monocytes/100 WBC (Bld) 12.2 % Normal . [facility] Comment on above: Performed By: #### C BC, PT, PTT, CMP, MG #### [address] Neutrophils (Bld) [#/Vol] 6.9 10*3/uL Normal 1.8-7.7 [facility] Comment on above: Performed By: #### C BC, PT, PTT, CMP, MG #### [address] Neutrophils/100 WBC (Bld) 74.1 % Normal . [facility] Comment on above: Performed By: #### C BC, PT, PTT, CMP, MG #### [address] Nucleated RBC/100 WBC (Bld) [Ratio] 0.0 % Normal 0-0.5 [facility] Comment on above: Performed By: #### C BC, PT, PTT, CMP, MG #### [address] Platelet mean volume (Bld) [Entitic vol] 8.1 fL Normal 6.6-10.1 [facility] Comment on above: Performed By: #### C BC, PT, PTT, CMP, MG #### [facility] [address] [place] [address] Platelets (Bld) [#/Vol] 196 10*3/uL Normal 150-450 [facility] Comment on above: Performed By: #### C BC, PT, PTT, CMP, MG #### [address] RBC (Bld) [#/Vol] 3.43 10*6/uL Low 3.90-5.60 [facility] Comment on above: Performed By: #### C BC, PT, PTT, CMP, MG #### [facility] [address] WBC (Bld) [#/Vol] 9.4 10*3/uL Normal 4.5-11.0 [facility] Comment on above: Performed By: #### C BC, PT, PTT, CMP, MG #### [facility] [address] Basophils (Bld) [#/Vol] 0.0 10*3/uL Normal 0.0-0.2 [facility] Comment on above: Result Comment: PERF ORMED BY: [place] [address] PATHOLOGIST ETHNOGRAPHER KATHY TELLO M.D. Performed By: #### C BC, PT, PTT, CMP, MG #### [address] Basophils/100 WBC (Bld) 0.3 % Normal . [facility] Comment on above: Performed By: #### C BC, PT, PTT, CMP, MG #### [facility] [address] Eosinophils (Bld) [#/Vol] 0.3 10*3/uL Normal 0.0-0.45 [facility] Comment on above: Performed By: #### C BC, PT, PTT, CMP, MG #### [address] Eosinophils/100 WBC (Bld) 2.8 % Normal . [facility] Comment on above: Performed By: #### C BC, PT, PTT, CMP, MG #### [facility] [address] Erythrocyte distribution width (RBC) [Ratio] 13.3 % Normal 12.0-14.8 [facility] Comment on above: Performed By: #### C BC, PT, PTT, CMP, MG #### [address] Hematocrit (Bld) [Volume fraction] 30.2 % Low 38.8-50.0 [facility] Comment on above: Performed By: #### C BC, PT, PTT, CMP, MG #### [address] Hemoglobin (Bld) [Mass/Vol] 10.2 g/dL Low 13.0-17.0 [facility] Comment on above: Performed By: #### C BC, PT, PTT, CMP, MG #### [address] Lymphocytes (Bld) [#/Vol] 0.8 10*3/uL Low 1.00-4.8 [facility] Comment on above: Performed By: #### C BC, PT, PTT, CMP, MG #### [address] Lymphocytes/100 WBC (Bld) 7.9 % Normal . [facility] Comment on above: Performed By: #### C BC, PT, PTT, CMP, MG #### [address] MCH (RBC) [Entitic mass] 30.6 pg Normal 27.5-35.2 [facility] Comment on above: Performed By: #### C BC, PT, PTT, CMP, MG #### [address] MCV (RBC) [Entitic vol] 90.6 fL Normal 83.5-101 [facility] Comment on above: Performed By: #### C BC, PT, PTT, CMP, MG #### [address] Mean Corpuscular HGB Conc 33.8 g/dL Normal 32.5-35.6 [facility] Comment on above: Performed By: #### C BC, PT, PTT, CMP, MG #### [address] [place] [address] [place] Monocytes (Bld) [#/Vol] 1.2 10*3/uL High 0.0-0.8 [facility] Comment on above: Performed By: #### C BC, PT, PTT, CMP, MG #### [facility] [address] Monocytes/100 WBC (Bld) 13.0 % Normal . [facility] Comment on above: Performed By: #### C BC, PT, PTT, CMP, MG #### [facility] [address] [place] [address] Neutrophils (Bld) [#/Vol] 7.3 10*3/uL Normal 1.8-7.7 [facility] Comment on above: Performed By: #### C BC, PT, PTT, CMP, MG #### [facility] [address] [place] [address] Neutrophils/100 WBC (Bld) 76.0 % Normal . [facility] Comment on above: Performed By: #### C BC, PT, PTT, CMP, MG #### [facility] [address] [place] [address] [place] Nucleated RBC/100 WBC (Bld) [Ratio] 0.0 % Normal 0-0.5 [facility] Comment on above: Performed By: #### C BC, PT, PTT, CMP, MG #### [facility] [address] [place] [address] [place] Platelet mean volume (Bld) [Entitic vol] 7.4 fL Normal 6.6-10.1 [facility] Comment on above: Performed By: #### C BC, PT, PTT, CMP, MG #### [facility] [address] [place] [address] [place] Platelets (Bld) [#/Vol] 190 10*3/uL Normal 150-450 [facility] Comment on above: Performed By: #### C BC, PT, PTT, CMP, MG #### [facility] [address] [place] [address] [place] RBC (Bld) [#/Vol] 3.33 10*6/uL Low 3.90-5.60 [facility] Comment on above: Performed By: #### C BC, PT, PTT, CMP, MG #### [facility] [address] [place] [address] WBC (Bld) [#/Vol] 9.6 10*3/uL Normal 4.5-11.0 [facility] Comment on above: Performed By: #### C BC, PT, PTT, CMP, MG #### [address] Comprehensive Metabolic Pane peña 07-13-2021 Albumin [Mass/Vol] 3.0 g/dL Low 3.2-5.5 [facility] Comment on above: Performed By: #### C BC, PT, PTT, CMP, MG #### [address] Albumin/Globulin [Mass ratio] 1.2 {ratio} Normal [facility] Comment on above: Performed By: #### C BC, PT, PTT, CMP, MG #### [facility] [address] [place] [address] ALP [Catalytic activity/Vol] 48 U/L Normal 32-92 [facility] Comment on above: Performed By: #### C BC, PT, PTT, CMP, MG #### [facility] [address] [place] [address] ALT [Catalytic activity/Vol] 17 U/L Normal 10-60 [facility] Comment on above: Performed By: #### C BC, PT, PTT, CMP, MG #### [facility] [address] [place] [address] AST [Catalytic activity/Vol] 14 U/L Normal 10-42 [facility] Comment on above: Performed By: #### C BC, PT, PTT, CMP, MG #### [facility] [address] [place] [address] Bilirubin [Mass/Vol] 1.7 mg/dL High 0.3-1.2 [facility] Comment on above: Result Comment: Samp les from patients who have taken Naproxen have shown spurious elevation in Total Bilirubin levels. A metabolite of Naproxen, O-desmethylnaproxen, has been shown to interfere with the Jendrassik-Grof method for measuring Total Bilirubin. Performed By: #### C BC, PT, PTT, CMP, MG #### [address] Calcium [Mass/Vol] 8.7 mg/dL Normal 8.2-10.2 [facility] Comment on above: Performed By: #### C BC, PT, PTT, CMP, MG #### [address] Chloride [Moles/Vol] 96 mmol/L Normal 95-114 [facility] Comment on above: Performed By: #### C BC, PT, PTT, CMP, MG #### [address] [address] CO2 [Moles/Vol] 25.8 mmol/L Normal 22.0-30.0 [facility] Comment on above: Performed By: #### C BC, PT, PTT, CMP, MG #### [address] Creatinine [Mass/Vol] 1.01 mg/dL Normal 0.64-1.27 [facility] Comment on above: Performed By: #### C BC, PT, PTT, CMP, MG #### [place] [address] [place] Creatinine Clr Calc Pharmacy 62.22 [facility] Comment on above: Performed By: #### C BC, PT, PTT, CMP, MG #### [address] Estimated GFR ( Dyana > 60 [facility] Comment on above: Result Comment: GFR estimated reference range: According to KDOQI guidelines, <60 ml/min/1.73m2 is sufficient to diagnose a patient with chronic kidney disease. Performed By: #### C BC, PT, PTT, CMP, MG #### [address] Estimated GFR (Non- Am > 60 Normal [facility] Comment on above: Performed By: #### C BC, PT, PTT, CMP, MG #### [facility] [address] Globulin (S) [Mass/Vol] 2.5 g/dL Normal [facility] Comment on above: Performed By: #### C BC, PT, PTT, CMP, MG #### [facility] [address] Glucose [Mass/Vol] 118 mg/dL High 70-100 [facility] Comment on above: Result Comment: [facility] Glucose Reference Range is dependent on time and content of last meal. Glucose of more than 200 mg/dL in a nonstressed, ambulatory subject supports the diagnosis of Diabetes Mellitus. ADA recommended reference range Performed By: #### C BC, PT, PTT, CMP, MG #### [address] Potassium [Moles/Vol] 4.1 mmol/L Normal 3.5-5.1 [facility] Comment on above: Performed By: #### C BC, PT, PTT, CMP, MG #### [address] Protein [Mass/Vol] 5.5 g/dL Low 6.1-7.9 [facility] Comment on above: Performed By: #### C BC, PT, PTT, CMP, MG #### [address] Sodium [Moles/Vol] 132 mmol/L Low 136-146 [facility] Comment on above: Performed By: #### C BC, PT, PTT, CMP, MG #### [facility] [address] Urea nitrogen [Mass/Vol] 11 mg/dL Normal 9-23 [facility] Comment on above: Performed By: #### C BC, PT, PTT, CMP, MG #### [address] Albumin [Mass/Vol] 3.0 g/dL Low 3.2-5.5 [facility] Comment on above: Performed By: #### C BC, PT, PTT, CMP, MG #### [facility] [address] Albumin/Globulin [Mass ratio] 1.0 {ratio} Normal [facility] Comment on above: Performed By: #### C BC, PT, PTT, CMP, MG #### [facility] [address] ALP [Catalytic activity/Vol] 47 U/L Normal 32-92 [facility] Comment on above: Performed By: #### C BC, PT, PTT, CMP, MG #### [facility] [address] ALT [Catalytic activity/Vol] 17 U/L Normal 10-60 [facility] Comment on above: Performed By: #### C BC, PT, PTT, CMP, MG #### [address] AST [Catalytic activity/Vol] 15 U/L Normal 10-42 [facility] Comment on above: Performed By: #### C BC, PT, PTT, CMP, MG #### [address] Bilirubin [Mass/Vol] 1.8 mg/dL High 0.3-1.2 [facility] Comment on above: Result Comment: Samp les from patients who have taken Naproxen have shown spurious elevation in Total Bilirubin levels. A metabolite of Naproxen, O-desmethylnaproxen, has been shown to interfere with the Jendrassik-Grof method for measuring Total Bilirubin. Performed By: #### C BC, PT, PTT, CMP, MG #### [facility] [address] [place] [address] [place] Calcium [Mass/Vol] 8.5 mg/dL Normal 8.2-10.2 [facility] Comment on above: Performed By: #### C BC, PT, PTT, CMP, MG #### [place] [id number] [place] Chloride [Moles/Vol] 96 mmol/L Normal 95-114 [facility] Comment on above: Performed By: #### C BC, PT, PTT, CMP, MG #### [address] CO2 [Moles/Vol] 24.2 mmol/L Normal 22.0-30.0 [facility] Comment on above: Performed By: #### C BC, PT, PTT, CMP, MG #### [address] Creatinine [Mass/Vol] 0.95 mg/dL Normal 0.64-1.27 [facility] Comment on above: Performed By: #### C BC, PT, PTT, CMP, MG #### [address] Creatinine Clr Calc Pharmacy 66.15 [facility] Comment on above: Performed By: #### C BC, PT, PTT, CMP, MG #### [address] Estimated GFR ( Dyana > 60 [facility] Comment on above: Result Comment: GFR estimated reference range: According to KDOQI guidelines, <60 ml/min/1.73m2 is sufficient to diagnose a patient with chronic kidney disease. Performed By: #### C BC, PT, PTT, CMP, MG #### [address] Estimated GFR (Non- Am > 60 [facility] Comment on above: Performed By: #### C BC, PT, PTT, CMP, MG #### [address] Globulin (S) [Mass/Vol] 3.0 g/dL [facility] Comment on above: Performed By: #### C BC, PT, PTT, CMP, MG #### [address] Glucose [Mass/Vol] 129 mg/dL High 70-100 [facility] Comment on above: Result Comment: [facility] Glucose Reference Range is dependent on time and content of last meal. Glucose of more than 200 mg/dL in a nonstressed, ambulatory subject supports the diagnosis of Diabetes Mellitus. ADA recommended reference range Performed By: #### C BC, PT, PTT, CMP, MG #### [facility] [address] Potassium [Moles/Vol] 3.8 mmol/L Normal 3.5-5.1 [facility] Comment on above: Performed By: #### C BC, PT, PTT, CMP, MG #### [facility] [address] Protein [Mass/Vol] 6.0 g/dL Low 6.1-7.9 [facility] Comment on above: Performed By: #### C BC, PT, PTT, CMP, MG #### [facility] [address] Sodium [Moles/Vol] 130 mmol/L Low 136-146 [facility] Comment on above: Performed By: #### C BC, PT, PTT, CMP, MG #### [facility] [address] Urea nitrogen [Mass/Vol] 12 mg/dL Normal 9-23 [facility] Comment on above: Performed By: #### C BC, PT, PTT, CMP, MG #### [facility] [address] ECG 12 lead ECGon 07-13-2021 ECG 12 lead ECG [facility] [address] [place] [address] Electrocardiograph Report Signed Patient: Sravanthi Araujo MR#: [id number] : 1945 Acct:[id number] Age/Sex: 76 / M ADM Date: 07/12/21 Loc: Room: [address] [place] [address] Type: DIS IN Attending Dr: Sanjana Loo MD Ordering Provider: Edin Clifford MD Date of Service: 07/13/2102/24/1036 ECG/ECG 12 lead ECG: pericardial effusion Copies to: Test Reason : Blood Pressure : / mmHG Vent. Rate : 084 BPM Atrial Rate : 113 BPM P-R Int : 000 ms QRS Dur : 092 ms QT Int : 368 ms P-R-T Axes : 000 059 050 degrees QTc Int : 434 ms Atrial fibrillation Abnormal ECG No previous ECGs available Confirmed by JOSE JOE [facility], CELINE ([id number]) on 07/13/2021 9:44:31 PM Referred By: Electronically Signed By:CELINE GARCIA MD [facility] Transcribed By: MUS Signed By Celine Garcia MD, [facility] 07/13/21 6594 Normal [facility] echo transthoracicon [facility] echo transthoracic [facility] [address] [place] [address] Echocardiogram Signed Patient: Sravanthi Araujo MR#: [id number] : 1945 Acct:[id number] Age/Sex: 76 / M ADM Date: 07/12/21 Loc: Room: [address] [place] [address] Type: DIS IN Attending Dr: Sanjana Loo MD Ordering Provider: Robyn Watt MD Date of Service: 07/13/2102/23/222 [facility] echo transthoracic: Pericardial effusion Copies to: MD Edin Zhou MD Weight: 181 lb Performed By: EHSAN Sandoval BSA: 2.0 m2 BP: 114/71 mmHg HR: 89 Reason For Study: Pericardial effusion History: Afib, anemia, asthma, CHF, DM, pacemaker, CVA Interpretation Summary The left ventricular size, thickness and function are normal Ejection Fraction = 60-65%. The left atrium appears moderately dilated. Mild to moderate aortic regurgitation. There is trace mitral regurgitation. There is trace tricuspid regurgitation. No evidence of tamponade Procedure/Quality: A two-dimensional transthoracic echocardiogram with color flow and Doppler was performed. The study was technically good in quality. Left Ventricle: The left ventricular size, thickness and function are normal. Ejection Fraction = 60-65%. No left ventricular thrombus or mass is seen. Left Atrium: The left atrium appears moderately dilated. The atrial septum appears normal. Right Atrium: The right atrium appears normal in size. Right Ventricle: The right ventricular size, thickness and function are normal. Aortic Valve: The aortic valve is mildly calcified. Mild to moderate aortic regurgitation. Mitral Valve: The mitral valve is mildly sclerotic. There is trace mitral regurgitation. Tricuspid Valve: The tricuspid valve is normal. There is trace tricuspid regurgitation. Pulmonic Valve: The pulmonic valve is not well visualized. Arteries: Moderate aortic root dilatation. The aortic arch was visualized and no abnormalities were seen. Pericardium/Pleura: Moderate pericardial effusion (1-2 cm). There is no pleural effusion. IVC/Hepatic Viens: The inferior vena cava is normal in size, with a normal collapsibility index. Miscellaneous: No evidence of tamponade. Measurements with Normals IVSd: 1.1 cm (0.7-1.1 cm)LVIDd: 5.3 cm (3.7-5.4 cm) LVPWd: 1.1 cm (0.7-1.1 cm)LVIDs: 4.0 cm (2.3-3.6 cm) LA dimension: 5.3 cm(2.3-4.0 cm)Ao root diam: 4.1 cm(2.0-3.6 cm) Doppler with Normals RVSP(TR): 38.6 mmHg (18-35mmHg) MV E max leslie: 107.0 cm/sec(0.8-1.3m/s) MV A max leslie: 77.6 cm/sec (0.0-0.0m/s) MV E/A: 1.4 (<1.5) MMode/2D Measurements Calculations RVDd: 4.1 cm FS: 23.8 % Ao root area: LVLd ap4: 7.6 cm TAPSE: 2.0 cm EDV(Teich): 13.2 cm2 EDV(MOD-sp4): RV S Leslie: 135.9 ml 91.3 ml 11.7 cm/sec ESV(Teich): LVLs ap4: 6.4 cm 72.0 ml ESV(MOD-sp4): EF(Teich): 47.1 % 21.9 ml EF(MOD-sp4): 76.0 % __ SV(MOD-sp4): LAV(MOD-sp4): LA A2 area: 25.6 cm2 69.4 ml 54.1 ml LAV(MOD-sp2): LA A4 area: 19.9 cm2 72.7 ml LA length (vol): 6.0 cm LA vol: 71.8 ml LA vol index: 36.3 ml/m2 Doppler Measurements Calculations MV dec time: 0.21 sec MV max PG: E/E' lat: 13.7 MV dec slope: 65.0 mmHg E/E' med: 11.3 502.7 cm/sec2 __ AI max leslie: MR max leslie: TV max PG: TR max leslie: 358.9 cm/sec 403.9 cm/sec 29.0 mmHg 267.4 cm/sec AI max P.6 mmHg MR max PG: TR max P.6 mmHg AI dec slope: 65.3 mmHg RAP systole: 10.0 mmHg 230.4 cm/sec2 AI P1/2t: 456.2 msec Transcribed By: KALYN Performed At: 07/13/21 1018 Signed By: Edin Clifford MD 07/13/21 1256 [facility] Erythrocyte Sedimentation Ra kimmy 07-13-2021 ESR (Bld) [Velocity] 40 mm/h High 0-19 [facility] Comment on above: Result Comment: PERF ORMED BY: [place] [address] PATHOLOGIST ETHNOGRAPHER KATHY TELLO M.D. Performed By: #### E SR #### [address] Glucose Poct Glucometerson 0 07-13-2021 Glucose [Mass/Vol] 260 mg/dL Normal [facility] Comment on above: Result Comment: [place] Glucose Reference Range is dependent on time and content of last meal. Glucose of more than 200 mg/dL in a nonstressed, ambulatory subject supports the diagnosis of Diabetes Mellitus. PERFORMED BY: [place] [address] PATHOLOGIST ETHNOGRAPHER KATHY TELLO M.D. Performed By: #### C BC, PT, PTT, CMP, MG #### [facility] [address] [place] [address] Commemt1 Glu2: Cleaned Meter Normal [facility] Comment on above: Result Comment: PERF ORMED BY: [place] [address] PATHOLOGIST ETHNOGRAPHER KATHY TELLO M.D. Performed By: #### G LUVIK #### Point of Care testing , Glucose [Mass/Vol] 117 mg/dL Normal [facility] Comment on above: Result Comment: [facility] Glucose Reference Range is dependent on time and content of last meal. Glucose of more than 200 mg/dL in a nonstressed, ambulatory subject supports the diagnosis of Diabetes Mellitus. Performed By: #### G LULS #### Point of Care testing , Magnesiumon 07-13-2021 Magnesium [Mass/Vol] 1.7 mg/dL Normal 1.6-2.6 [facility] Comment on above: Result Comment: PERF ORMED BY: [place] [address] PATHOLOGIST ETHNOGRAPHER KATHY TELLO M.D. Performed By: #### C BC, PT, PTT, CMP, MG #### [facility] [address] [place] [address] Magnesium [Mass/Vol] 1.5 mg/dL Low 1.6-2.6 [facility] Comment on above: Result Comment: PERF ORMED BY: [place] [address] PATHOLOGIST ETHNOGRAPHER KATHY TELLO M.D. Performed By: #### C BC, PT, PTT, CMP, MG #### [facility] [address] [place] [address] Partial Thromboplastin Timeo n 07-13-2021 aPTT Coag (Bld) [Time] 47.9 s High 25.1-36.5 [facility] Comment on above: Result Comment: PERF ORMED BY: [place] [address] PATHOLOGIST ETHNOGRAPHER KATHY TELLO M.D. Performed By: #### C BC, PT, PTT, CMP, MG #### [facility] [address] [place] [address] [place] Prothrombin Time INRon 07-13 INR Coag (PPP) [Relative time] 3.5 {INR} Normal [facility] Comment on above: Result Comment: INR Therapeutic Range A) Pre- and Peroperative OAT started two weeks before surgery. NOT HIP SURGERY: 1.5 - 2.5 HIP SURGERY: 2 - 3 B) Primary and secondary prevention of venous THROMBOSIS: 2 - 3 C) Active venous thrombosis, pulmonary embolism and prevention of recurrent venous thrombosis: 2 - 3 D) Prevention of arterial thromboembolism including patients with mechanical heart valves: 3 - 4.5 Performed By: #### C BC, PT, PTT, CMP, MG #### [address] PT Coag (PPP) [Time] 41.1 s High 9.0-12.9 [facility] Comment on above: Performed By: #### C BC, PT, PTT, CMP, MG #### [place] [address] [place] Troponin I High Sensitivityo n 07-13-2021 Troponin I High Sensitivity 5 pg/mL Normal 0-20 [facility] Comment on above: Result Comment: PERF ORMED BY: [place] [address] PATHOLOGIST ETHNOGRAPHER KATHY TELLO M.D. Performed By: #### H S TROP #### [address] Troponin I High Sensitivity 6 pg/mL Normal 0-20 [facility] Comment on above: Result Comment: PERF ORMED BY: [place] [address] PATHOLOGIST ETHNOGRAPHER KATHY TELLO M.D. Performed By: #### C BC, PT, PTT, CMP, MG #### [facility] [address] [place] [id number] [facility] XR chest 2V*on 07-13-2021 XR chest 2V* [facility] [address] [place] [address] XRay Report Signed Patient: Sravanthi Araujo MR#: [id number] : 1945 Acct:[id number] Age/Sex: 76 / M ADM Date: 07/12/21 Loc: Room: [address] [place] [address] Type: ADM IN Attending Dr: Sanjana Loo MD Ordering Provider: Edin Clifford MD Date of Service: 07/13/21 XR/XR chest 2V*: pericardial effusion Copies to: MD Edin Espinosa MD Chest 07/13/2021. CLINICAL DATA: Chest pain and cough. FINDINGS: 2 views of the chest were obtained. No prior study is available for comparison. The cardiac silhouette is enlarged. The pulmonary vasculature is within normal limits. No definite pulmonary consolidation or collapse is identified. Small bilateral pleural effusions are seen. Old right rib fractures are noted. XR/XR chest 2V* IMPRESSION: Enlarged cardiac silhouette. Small pleural effusions. Impression dictated by: Brant Marroquin Jr., M.D.07/13/2021 3:47 PM Dictation Location: [place] [address] Transcribed By: [facility] 07/13/21 1547 Dictated By: Brant Marroquin Jr, MD 07/13/21 1544 Signed By: 07/13/21 1547 [facility] Patient Instructionson 03-04 Appellate Law Clerk Authentication Interface Message Text Call the Neurology Clinic at [phone] with any questions. Follow up with primary care Discuss with Cardiology about watchman device --repeat CTH before cardiology visit -If stable from a neurological standpoint may resume AC, (ask cardiology about ways to reduce AFIB such as watchman device and ablation) -continue to control BP <130 -continue to take aspirin until AC is started and then stop asa, no neurological reason to stay on both. -cont' to take statin Patient Education Patient Education Left Atrial Appendage Closure Why is this procedure done? Left atrial appendage or JOCELYNN is a small flat protrusion that sticks off of the side of the left atrium of your heart. It is the most common place for clots to form if you have atrial fibrillation or A-fib. JOCELYNN closure may lower your chances for a stroke. When you have A-fib, the signals to the upper part of the heart, the atria, are very fast and not regular. The atria don't beat as usual, but instead just quiver. This can cause your heart to beat 100 to 175 beats a minute or more. The blood does not empty fully from the upper chambers. It can just pool in the atria and the JOCELYNN. Clots may form, most often in the JOCELYNN, which puts you at higher risk for a stroke. What will the results be? The JOCELYNN closure blocks off this part of your heart and may lower your chance for a stroke. You may also be able to safely stop taking drugs to thin your blood after this procedure. An JOCELYNN closure will not make your a-fib go away. What happens before the procedure? Ask a family member or friend to drive you home. You will not be allowed to drive after your procedure. ??? Your doctor will ask about your health history. Talk to the doctor about: ? All the drugs you are taking. Be sure to include all prescription, over the counter, vitamins, and herbal supplements. Bring a list of drugs you take with you. ? Tell the doctor if you have any drug allergy. ? Any bleeding problems. Be sure to tell your doctor if you are taking any drugs that may cause bleeding. Some of these are Coumadin (warfarin), Xarelto (rivaroxaban), Eliquis (apixaban), ibuprofen, Aleve (naproxen), aspirin, or Plavix (clopidogrel). Certain vitamins and herbs, such as garlic and fish oil, may also add to the risk for bleeding. You may need to stop these drugs as well. Talk to your doctor about them. ? If you have a stent in place, talk to the doctor that placed the stent before you stop any drugs that thin your blood. ? Typically, prior to JOCELYNN closure, your doctor will need you to be on a short course of Coumadin or other similar blood thinner to protect you from stroke before and during the procedure. What happens during the procedure? The staff will put an IV in your arm to give you fluids and drugs. Once you are in the operating room, your doctor will give you a drug to make you sleepy. Sometimes, the doctor will give you a special drug to make you numb for the surgery. Other times, you are completely asleep. ??? The doctor will decide what area to use for your procedure. It will most often be the area around one of your upper thighs (groin). This area will be shaved, cleaned, and numbed. The doctors will place a needle in the blood vessel. Then, the doctor passes a small wire and tube, called a catheter, through the needle and moves it into the heart. ??? Another doctor will place a special ultrasound camera into your mouth and down your throat. This is a STEFANY, or transesophageal echocardiogram. This camera will guide your doctor to make sure the device is in the right place and has a tight seal. ??? The doctor uses a device to seal off the JOCELYNN. This device is left in place and blocks blood from going into the JOCELYNN. ??? The doctor removes the catheter and wire. The doctor will use a sealant or plug to close the opening in the groin. This also lowers the chance of bleeding. Your doctor will place clean bandages over the area. The staff applies pressure to the area to control bleeding. ??? The procedure most often takes from 1 to 3 hours. What happens after the procedure? You will go to the Recovery Room and the staff will watch you closely. ??? You will need to lie flat for some time, typically a few hours, before you can get up. ??? You may have to stay in the hospital overnight. What problems could happen? Internal bleeding or bleeding at the cut site ??? JOCELYNN is not fully closed ??? Damage to the blood vessel ??? Allergic reaction or kidney failure from the dye used ??? Blood clots ??? Irregular heartbeat ??? Heart attack or other damage to the heart ??? Stroke ??? Last Reviewed Date 2019-07-28 Consumer Information Use and Disclaimer This information is not specific medical advice and does not replace information you receive from your health care provider. This is only a brief summary of general information. It does NOT (more content not included)... Normal [facility] Progress Noteson 2021 Appellate Law Clerk Authentication Interface Message Text Sravanthi Araujo Age: [age] year old Vitals: 03/04/21 1347 BP: 104/61 Pulse: 76 CC: doing great since being in the hospital here with , they live [facility] and will follow up with neuro as this was an hour and half drive, No new symptoms, no headache, no dizziness, no weakness, no vision loss. We discussed risk and benefit of AC vs stroke and we they will discuss with cardiology options for AFIB treatment. He may ask his neurologist or primary to order CTH closer to them. Discussed getting scan to check for stability of bleed. HPI: 75 yo right handed M w/ PMHx???colon cancer (s/p resection), Fuchs' dystrophy (s/p multiple corneal transplants), atrial fibrillation (s/p ablation and on Xarelto), COPD, DM type 2, depression, HLD, sleep apnea (not on CPAP) who presented???as transfer from OSH after CTH showed acute L parietal???cortical ICH in the setting of AC w/ Xarelto???on 02/04. Previous plan: - Ok for ASA 325mg???post bleed day 7, wait AC for at least 2 weeks Issues to address:???L posterior parietal ICH with trace SAH, resuming AC, memory issues. Per NS note on 02/06/21 -Okay for q4???NCs, RNF -CTH/CTA stable, no vascular lesion identified -f/u MRI Brain w/wo contrast reviewed, demonstrates no underlying vascular lesion -Defer anticoagulation restart to neurology -No mass lesion identified, nsgy???to sign off at this time. No neurosurgery follow up. Pt to follow up with neurology. - DVT prophylaxis per neurology / primary team ROS 10 point ROS was obtained and negative unless noted above in the HPI. Medical history, surgical history, and problem list reviewed and updated as necessary. Current Outpatient Medications Medication Sig Dispense Refill * amLODIPine (NORVASC) 10 MG tablet Take 1 Tablet by mouth daily. 30 Tablet 3 * aspirin EC 325 MG tablet Take 1 Tablet by mouth daily. 30 Tablet 2 * prednisoLONE acetate (PRED FORTE) 1 % ophthalmic suspension Place 1 Drop in both eyes daily. 5 mL 0 * metoprolol (TOPROL-XL) 100 mg XL tablet Take 1 Tablet by mouth daily. 30 Tablet 2 * tamsulosin (FLOMAX) 0.4 MG capsule Take 0.4 mg by mouth daily. * sildenafil citrate (Viagra) 100 MG tablet Take 100 mg by mouth as needed for Erectile Dysfunction. * atorvastatin (LIPITOR) 40 mg tablet * fluoxetine (PROZAC) 40 MG capsule * metformin (GLUCOPHAGE) 1000 MG tablet Take 1 Tablet by mouth 2 times daily. * zolpidem (AMBIEN) 10 MG tablet No current facility-administered medications for this visit. Allergies Allergen Reactions * Flecainide Dizziness HISTORY: No past medical history on file. No past surgical history on file. Social History Tobacco Use * Smoking status: Never Smoker * Smokeless tobacco: Never Used Substance Use Topics * Alcohol use: Not on file * Drug use: Not on file No family history on file. Physical Exam: General appearance: Well-nourished. NAD Psychiatric: Appropriate mood and affect HEENT: Normocephalic, mucosa normal, neck supple. Pulmonary: unlabored on room air, no distress Cardiovascular: RRR Extremities: BLACK. No gross or obvious abnormalities, no edema Spine: Straight Skin: No gross or obvious abnormalities on visible skin Neurologic Exam: Cognition Sedation: none Level of consciousness: awake, alert Affect: normal Orientation: oriented x4 Attention: normal Language: intact fluency, repetition, naming, comprehension, reading, writing Fund of knowledge: appropriate Recall of three objects: intact, no hesitation Visual mcdonald: decreased peripheral on right and double vision peripheral on left. Neglect: absent Extinction: absent Right-left confusion: absent Cranial Nerves Vision/fundoscopic: n/a Pupils: right surgical 1mm, left reactive 2mm Spontaneous gaze: no deviation Extraocular movements: horizontal nystagmus 4-5 beats Facial sensation: intact Facial motor function: symmetric forehead wrinkling and smile Hearing: intact to conversation Palate elevation: symmetric Dysarthria: absent Tongue: midline; able to move fully to R and L Shoulder shrug: normal Motor Tone: normal Drift: absent Spontaneous abnormal movements:tremor bilat at end pointing mild, no ataxia RIGHT LEFT Deltoids 5 5 Biceps 5 5 Triceps 5 5 Hand 5 5 Hip flexion 5 5 Knee extension 5 5 Knee flexion 5 5 Dorsiflexion 5 5 Plantarflexion 5 5 Sensation Intact to light touch Coordination R: intact on FNF, FAIZAN L: intact on FNF, FAIZAN Gait Normal Romberg Normal Lab data: Basic Metabolic Panel Na K Cl CO2 Gap Glu BUN Cr Ca 02/09/21458 135 4.0 99 28 12 117 12 0.98 9.2 02/04/216 137 3.9 99 28 14 110 11 1.04 9.3 02/04/212119 137 4.1 99 27 15 104 11 0.92 9.7 CBC (last 3 years, up to 5 values) WBC RBC Hgb Hct MCV RDW Plt 02/09/21458 8.8 4.13 13.4 39.3 95 13.3 202 02/04/216 9.3 4.24 14.0 40.8 96 13.1 184 02/04/212119 9.5 4.38 14.2 42.4 97 12.9 193 ALT (SGPT) (more content not included)... Normal [facility] Addendum Noteon 02-22-2021 Appellate Law Clerk Authentication Interface Message Text Addended by: LORNE FELIZ on: 02/22/2021 03:43 PM Modules accepted: Level of Service Normal [facility] Progress Noteson 02-22-2021 Appellate Law Clerk Authentication Interface Message Text Primary Care Visit [place], [place] [address] This patient is a 75 year old male here in clinic today to discuss: Chief Complaint: Hospital follow-up No prior visits. Subjective: Sravanthi Araujo is a 75 year old male with PMH of atrial fibrillation previously on xarelto and colon cancer s/p resection who presents for hospital discharge follow-up after an acute L parietal cortical ICH of undetermined etiology. Patient his original symptoms were confusion and inability to get words out. These sx resolved on there own. Since being discharged patient states he feels great and has no neurological deficits since leaving the hospital. Patient has been taking aspirin currently until he can be re-evaluated by neurology for resumption of anticoagulation. Patient has an appointment with neurology on 03/04 throughout [facility]. Patient is from [facility] and plans on resuming care within his home medical system. He saw his PCP today who could see his hospital course. Patient was referred by PCP to a neurologist close to his home who he plans to follow with after being seen by neurology at [facility]. 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 Hospital Course from Hospital discharge paperwork Patient is a 75yo male, transfer from [facility], w/ history of Afib (usually on xarelto), T2DM, and colon cancer (s/p resection) who was originally sent here from OSH after CT head showed acute L parietal cortical ICH in setting of taking Xarelto for Afib. The actual etiology of the ICH is unclear (thought possibly to be 2/2 HTN or possibly CAA - though MRI did not show classic changes for this). His remained neurologically stable and deemed stable enough to transfer from [facility] to [facility], with a goal of systolic blood pressure <140. While on the medicine floor, he has been neurologically stable, but his blood has been running borderline and occasionally above 140s systolic, for which he was started on Norvasc and uptitrated to 10mg every day. Had two transient episodes of diaphoresis, nausea, and dizziness, repeated CTH stable - above (both were after taking oxycodone for his pain - SIDDIQUI since his presentation). His blood pressure well controlled on Amlodipine and Metoprolol. Neuro-exams have been stable. He was started on Aspirin tx per Neurology recommendations on hospital D7. He will Continue his aspirin treatment until follow up w/ Neurology. ??? Hx Current Outpatient Medications: * amLODIPine (NORVASC) 10 MG tablet, Take 1 Tablet by mouth daily., Disp: 30 Tablet, Rfl: 3 * aspirin EC 325 MG tablet, Take 1 Tablet by mouth daily., Disp: 30 Tablet, Rfl: 2 * prednisoLONE acetate (PRED FORTE) 1 % ophthalmic suspension, Place 1 Drop in both eyes daily., Disp: 5 mL, Rfl: 0 * metoprolol (TOPROL-XL) 100 mg XL tablet, Take 1 Tablet by mouth daily., Disp: 30 Tablet, Rfl: 2 * tamsulosin (FLOMAX) 0.4 MG capsule, Take 0.4 mg by mouth daily., Disp: , Rfl: * sildenafil citrate (Viagra) 100 MG tablet, Take 100 mg by mouth as needed for Erectile Dysfunction., Disp: , Rfl: * atorvastatin (LIPITOR) 40 mg tablet, , Disp: , Rfl: * fluoxetine (PROZAC) 40 MG capsule, , Disp: , Rfl: * metformin (GLUCOPHAGE) 1000 MG tablet, Take 1 Tablet by mouth 2 times daily., Disp: , Rfl: * zolpidem (AMBIEN) 10 MG tablet, , Disp: , Rfl: Allergies Allergen Reactions * Flecainide Dizziness No past medical history on file. No past surgical history on file. No family history on file. Social History Tobacco Use * Smoking status: Never Smoker * Smokeless tobacco: Never Used Substance Use Topics * Alcohol use: Not on file * Drug use: Not on file Review of Systems: Review of Systems Constitutional: Negative for chills and fever. HENT: Negative for sore throat. Eyes: Negative for blurred vision and double vision. Respiratory: Negative for shortness of breath. Cardiovascular: Negative for chest pain and leg swelling. Gastrointestinal: Negative for abdominal pain, constipation, diarrhea, heartburn, nausea and vomiting. Genitourinary: Negative for dysuria. Skin: Negative for rash. Neurological: Negative for dizziness, sensory change, speech change, focal weakness, weakness and headaches. Objective: Vitals: BP 107/65 Pulse 77 Temp 97.3 ???F (36.3 ???C) (Temporal) Resp 16 Wt 193 lb (87.5 kg) SpO2 98% BMI 28.50 kg/m??? Weight change: -0.1 lb (0%) from 02/05/2021 11:07 AM (193.1 lb) to 02/17/2021 3:15 PM (193.0 lb) (-0.1 lb/wk). Physical Exam Constitutional: General: He is not in acute distress. Appearance: Normal appearance. He is normal weight. He is not ill-appearing. HENT: Head: Normocephalic and atraumatic. Right Ear: External ear normal. Left Ear: External ear normal. Nose: Nose normal. Mouth/Throat: Mouth: Mucous membranes are moist. Eyes: Extraocular Movements: Extraocular movements intact. Pupils: Pupils are equal, round, and reactive to light. (more content not included)... Normal [facility] Progress Noteson 02-17-2021 Appellate Law Clerk Authentication Interface Message Text Teaching Physician Note: I saw and evaluated the patient. I personally obtained the greene and critical portions of the history and physical exam. I reviewed the resident's documentation and discussed the patient with the resident. I agree with the resident's medical decision making as documented in the resident's note. - pleasant gentlemen - hospital follow up after ICH. - seen by his PCP today. - BP controlled, showed us log. BP 110 to 120s. Lorne Feliz MD Normal [facility] Telephone Encounteron 2020 Appellate Law Clerk Authentication Interface Message Text STROKE FOLLOW UP PHONE CALL TEMPLATE Stroke program follow up interview conducted on: 02/15/2021, Pt identifies self with Name and . Industrial Relations Manager ID#: Pt primary language is Tuvaluan. Did your doctor explain your health problem/diagnosis to you/caregiver? Pt states Yes . What is your diagnosis or health problem? Pt states Bleeding on the brain, a hemorrhagic stroke . Do you understand what it means? Pt states Yes . Disease specific information reviewed using teach back technique . Educated regarding diagnosis. Verbalized understanding via teach back: Yes. 1. Have your symptoms subsided or are they still present? Pt states they have subsided. Patient denies: Headache, vision changes, high blood pressure, facial droop, slurred speech, aphasia, weakness, numbness, tingling or falls. Denies. a. Do you know the s/s of stroke and who to call? Pt states he originally got to the hospital when his drove him there, and he was transferred here via helicopter. Pt states he will call in the future if needed. BE FAST reviewed: BE FAST reviewed and Pt states understanding. If s/s of stroke, call 911 immediately. Verbalized understanding via teach back: Yes. 2. Did you get your prescriptions filled? Yes. a. Are you taking your medications as they were prescribed? Yes. 3. Are there any ADL's that you are having difficulty with? Pt reports no difficulties. If Yes; Do you have: I. Home care services for therapy? No. II. Outpatient therapy services scheduled? No. 4. When are you scheduled to follow up with your Primary Caregiver and Specialist (Neurology, NeuroSurgery, IR)? Pt states he has an appointment with Dr. Fish Levy, [address] [address]. #[phone], on 02/17/2021. Pt states he is going to switch care for PCP, and Neurology to closer to home . Pt is aware of his follow-up appointments at [place]. Transportation: Yes. Pt states his will drive. a. Comments: NA 5. Risk factor modification: a. Smoker: No. How are you doing with your QUIT plan? NA i. Number of cigarettes smoked daily? NA ii. Smoking cessation products: Nicotine gum/Nicotine patch/Chantix NA b. High cholesterol: Pt has History. If NEW to Statin medication or Hypercholesterolemia: Have you had any issues adjusting to low fat/ low cholesterol diet? Reviewed this diet with Pt, and he will discuss further with his PCP. c. Diabetic: Yes. i. Are you checking you blood sugars? How frequent? Pt states he now checks his blood sugar, everyday in the morning. ii. What has been your average blood sugar reading since discharge? Pt states 100-110 . Pt is aware of his last HbA1C reading of 6.1%. d. Hypertension: Yes. i. Have you been taking your medicine for high blood pressure? Yes. ii. Do you have permissive hypertension? No. iii. Do you have a BP monitor at home? Pt does have a monitor at home and checks his blood pressure approximately twice a day. iv. What is the goal for your blood pressure? Pt will discuss this with his PCP. 6. Have you experienced a fall since you were discharged? No. a. How many times have you fallen? None. b. Did you get injured when you fell? NA. Comments: Pt will be following up in the [place], [place] area for his continuing care. Not enrolled in TCC program at this time. Counseled and coached regarding behavior and lifestyle changes that promote on going self-management regimens and optional health goals. Verbalized understanding via teach back: Yes. Total time: 45 min. Lorri Demarco RN, BSN Stroke Transitional Paint Process Engineer [employer] PH: [phone] Normal [facility] Care Plan Noteon 02-11-2021 Appellate Law Clerk Authentication Interface Message Text Problem: Safety: Goal: Patient will remain free of falls during hospital stay Outcome: Progressing Goal: Free from injury during hospitalization Outcome: Progressing Problem: VTE Prophylaxis: Goal: Will be free of DVT Outcome: Progressing Problem: Discharge Planning: Goal: Discharge needs of the adult patient will be met Outcome: Progressing Problem: Routine Care: Goal: Patient care will be managed and maintained throughout hospital stay per unit specific routine care procedure Outcome: Progressing Problem: Alteration in Tissue Perfusion: Cerebral: Goal: Promote adequate perfusion and limit complications for a person experiencing or at risk for inadequate cerebral perfusion Outcome: Progressing Problem: Altered Neurological Status: Goal: Optimal neurological status will be maintained or regained Outcome: Progressing Normal [facility] GLUCOSE, FINGERSTICK-IN OFFI CEon 02-11-2021 Glucose [Mass/Vol] 133 mg/dL High 80-116 [facility] Comment on above: Performed By: #### [id number] #### NURSING GLUCOSE PROGRAM [address] [place], [address] Glucose [Mass/Vol] 122 mg/dL High 80-116 [facility] Comment on above: Performed By: #### 8 [id number] #### NURSING GLUCOSE PROGRAM [address] [place], [address] Glucose [Mass/Vol] 129 mg/dL High 80-116 [facility] Comment on above: Performed By: #### 8 [id number] #### NURSING GLUCOSE PROGRAM [address] [place], [address] Progress Noteson 02-11-2021 Appellate Law Clerk Authentication Interface Message Text I have reviewed and agree with Verna's (Student Nurse) documentation for the day shift. Normal [facility] Appellate Law Clerk Authentication Interface Message Text NEUROLOGY CONSULT FOLLOWUP NOTE Hospital Course: Sravanthi Araujo???is a 75 year old???right handed???male?w/ PMH colon cancer (s/p resection), Fuchs' dystrophy (s/p multiple corneal transplants), atrial fibrillation (s/p ablation and on Xarelto), COPD, DM type 2, depression, HLD, sleep apnea (not on CPAP) who presented???as transfer from OSH after CTH showed acute L parietal???cortical ICH in the setting of AC w/ Xarelto???on 02/04. Received 2000 units of Kcentra and 10mg Vit K prior to transfer. NSGY consulted on arrival to [facility]. Reporting headache, improved slightly with acetaminophen. Denies new blurry or double vision (poor vision at baseline), numbness/tingling/wea kness or nausea / vomiting or dizziness.???Admitted ???for an???acute L parietal???cortical ICH? Recently patient has had some paroxysmal spells of nausea and unsteadiness that have resolved within min. The last one was shortly after being given oxycodone for neck pain. Updates since last visit: Repeat CTH ovenright shows expected evolution of L parietal ICH, with decrease in size of hemorrhage. Clinically pt feels fine, no further events, no complaints. OBJECTIVE: Vitals: 02/11/21 0715 BP: 132/74 Pulse: 61 Resp: 18 Temp: 98.1 ???F (36.7 ???C) SpO2: 94% Intake/Output Summary (Last 24 hours) at 02/11/2021 1028 Last data filed at 02/10/2021 2258 Gross per 24 hour Intake 460 ml Output 0 ml Net 460 ml Physical Exam: Gen: NAD CVS: RRR Neurologic exam: Mental status AOx CN 2-12: grossly intact MOTOR: RUE 5 LUE 5 RLE 5 LLE 5 SENSORY: intact to light touch LABS: CBC (last 3 years, up to 5 values) WBC RBC Hgb Hct MCV RDW Plt 02/09/21 0459 8.8 4.13 13.4 39.3 95 13.3 202 02/04/212355 9.3 4.24 14.0 40.8 96 13.1 184 02/04/21 2120 9.5 4.38 14.2 42.4 97 12.9 193 Basic Metabolic Panel Na K Cl CO2 Gap Glu BUN Cr Ca 02/09/219 135 4.0 99 28 12 117 12 0.98 9.2 02/04/212355 137 3.9 99 28 14 110 11 1.04 9.3 02/04/21 2120 137 4.1 99 27 15 104 11 0.92 9.7 INR (no units) Date Value 02/04/2021 1.49 (H) Lipids (last 3 years, up to 5 values) Chol- esterol TG HDL LDL Chol / HDL LDL / HDL Non HDL 02/04/212355 91 76 37 44 2.46 1.19 54 Lab Results Component Value Date HBA1C 6.1 (H) 02/04/2021 IMAGING: Last Echocardiogram: 02/08/2021 Left Ventricular Ejection Fraction: 60 % on 02/08/2021. ASSESSMENT 75 yo right handed M w/ PMHx???colon cancer (s/p resection), Fuchs' dystrophy (s/p multiple corneal transplants), atrial fibrillation (s/p ablation and on Xarelto), COPD, DM type 2, depression, HLD, sleep apnea (not on CPAP) who presented???as transfer from OSH after CTH showed acute L parietal???cortical ICH in the setting of AC w/ Xarelto???on 02/04. ??? Workup: CTA head/neck:???No significant change in ???subarachnoid hemorrhage in a left posterior parietal sulcus. No significant stenosis, dissection, or aneurysm in the intracranial or extracranial circulation. MRI head SAH wii L posterior parietal sulci. Urine tox +THC. LDL 44 HbA1c 6.1 T bili ECHO: is 60%. Dilated left atrium, ascending aorta. Concentric left ventricular hypertrophy is present. Mild aortic, tricuspid valve regurgitation. ??? Mechanism: Unclear, hypertensive vs amyloid. Recommendations - Ok for ASA 325mg???post bleed day 7, wait AC for at least 2 weeks - Cont???home prozac. Melatonin. Holding zolpidem, trazodone. -???Goal???SBP < 140 OK for discharge home from neuro standpoint. ? Follow-up after discharge with the Neurology Clinic Stroke:???Frantz Arambula DEVELOPMENTAL ELECTRONICS ASSEMBLER, or Skylar Gastelum NP Visit type: 60 minute, in person or video Timing: ???2-3 weeks Issues to address:???L posterior parietal ICH with trace SAH, resuming AC, memory issues. Total length of time 35 (minutes) of the encounter and more than 50% was spent in [id number] time counseling the patient and in coordination of care. Onesimo Jarrett MD Neurology/Neurocritic al care Neurology service pager (for floor and ED consults): [phone] Normal [facility] Appellate Law Clerk Authentication Interface Message Text Attestation signed by Ronda Voss DO at 02/12/2021 12:09 AM Teaching Physician Note: I saw and evaluated the patient. I personally obtained the greene and critical portions of the history and physical exam. I reviewed the resident's documentation and discussed the patient with the resident. I agree with the resident's medical decision making as documented in the resident's note. Reviewed case w/ Dr. Jarrett - who has reviewed the CT and evaluated the patient. CT done last night was for2 spells w/ some ?vertigo. CT shows expected evolution of L parietal ICH. Hemorrhage is decreased in size. He suspects possibly this was HTN related or possibly CAA (though MRI does not support necessarily). He will start aspirin today (yesteday was d7). We dsicussed holding AC until Neuro f/u and he is fine w/ this. Pt is dong well today. I met w/ and pt at bedside. Reviewed the CT report w /them. Explained that we do not entirely understand the etiol of the ICH - but reviewed the DDX. Reviewed the plan for aspirin and HOLDing xarelto until f/u w/ Neuro. They will make the f/u here. All Q's answered. Made an appt w/ his Hearse Driver as well. Attempted to make appt w/ PCP but office closed. I will fax DC summary next week to the PCP. Reviewed what sxs to monitor for upon DC - should any develop - 911 immediately. Reviewed activity restrictions. Reviewed medications for BP. Counseled on importance of all f/u appts. has bp cuff - advised they take bp daily. VSS - RR. CTABL. Abd soft +BS, nttp. No LE edema. CN ii-xii intact. Strength 5/5 throughout. GSI. 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 Reviewed w/ pt and possible htn v caa. (per neuro) though ultimately this was cryptogenic. -unclear etiology. -MRI does not favor prior changes or anatomical lesion. -CTA w/o vessel abnl or signif findings w/in intra/extra-cranial circulatory system. -NCC recommend 2-4 wks prior to starting AC. -continue Norvasc 5 -aspirin to start today -reviewed several times w/ pt to hold xarelto once he goes home - aware as well - we will proceed only w/ aspirin therapy for now and he is to f/u w/ Neuro prior to starting the AC (another 2-3 wks) Elevated BP (mild HTN) Srtarted norvasc - cotinue upon home going . Continue metoprolol Check BP daily (he ahs a cuff) AFib Reminded pt to f/u w/ Hearse Driver Continue metoprolol Ok for DC home today - pt to f/u w /PCP - they will call Sunday to schedule Ronda Voss, DO INTERNAL MEDICINE TEAM 9 DAILY PROGRESS NOTE Patient: Sravanthi Araujo : 1945 Sex: male Room: [facility] Admit Date: 02/04/2021 Today's Date: 02/11/2021 Length of stay: 7 day(s) HOSPITAL COURSE: Patient is a 75yo male, transfer from [facility], w/ history of Afib (usually on xarelto), T2DM, and colon cancer (s/p resection) who was originally sent here from OSH after CT head showed acute L parietal cortical ICH in setting of taking Xarelto for Afib. The actual etiology of the ICH is unclear. His was beurologically stable and deemed stable enough to transfer from [facility] to [facility], with a goal of systolic blood pressure <140. While on the medicine floor, he has been neurologically stable, but his blood has been running borderline and occasionally elevated during the afternoons. EVENTS IN PAST 24H: Had another neurological change event yesterday had repeat CTH. No overnight events, BP better controlled. SUBJECTIVE: Patient is resting comfortably in his bed upon arrival at bedside. He reports he did have another event where he got dizzy but says it was less severe than the day prior. He also reports that his headache has been constant, but is manageable. He denies any change in vision, weakness, numbness, tingling, chest pain, nausea, vomiting, or any other symptoms at this time. OBJECTIVE: Patient Vitals for the past 24 hrs: BP Temp Temp src Pulse Resp SpO2 O2 Device 02/10/219 134/73 98.2 ???F (36.8 ???C) Oral 75 20 93 % -- 02/10/21 1709 136/80 -- -- 80 -- -- -- 02/10/21 1706 130/74 -- -- 77 -- -- -- 02/10/21 1703 126/67 -- -- 80 -- -- -- 02/10/21 1528 107/63 98 ???F (36.7 ???C) Oral 62 20 95 % Room air 02/10/21 1227 113/61 98.7 ???F (37.1 ???C) Oral 73 18 96 % Room air 02/10/21 0758 129/80 98.1 ???F (36.7 ???C) Oral 70 18 96 % Room air Is/Os Baseline Weight Admission Weight Weight: 193 lb 1.6 oz (87.6 kg) Today's Weight Weight: 193 lb 1.6 oz (87. (more content not included)... Normal [facility] Research Noteon 02-11-2021 Appellate Law Clerk Authentication Interface Message Text This patient signed informed consent to the SATURN clinical research study on 02/10/2021. The SATURN trial aims to determine whether continuation vs. discontinuation of statin drugs after spontaneous lobar intracerebral hemorrhage (ICH) is the best strategy; and whether the decision to continue/discontinue statins should be influenced by an individual's Apolipoprotein-E (APOE) genotype. ??? This patient was randomized to continuation of statin drug for 24 months while in the trial. ??? If there are any questions or concerns, please contact: Dinorah Roach (Research RN): [phone] Dr. Kelly Cooney (Jacquard Loom Carpet Weaver): [phone] [facility] [address] HEAD W/O CONTRASTon 02-10 CT HEAD W/O CONTRAST EXAMINATION: CT HEA D W/O CONTRAST CLINICAL HISTORY: Reason for Exam: Intracranial aneurysm suspected ASSOCIATED DIAGNOSIS: Intracranial aneurysm suspected TECHNOLOGISTS NOTE: COMPARISON: CTA head and neck dated 02/05/2021 TECHNIQUE: Thin axial imaging of the head was performed without intravenous contrast. FINDINGS: Slight decrease in the linear and angular hyperdensity within the left parietal cortical and subcortical white matter. This may represent evolving blood products or a subacute infarction with developing laminar necrosis. This was a somewhat atypical appearance. Continued follow-up to resolution is recommended. No new or worsening areas of hemorrhage are present within the brain. No hydrocephalus. Moderate chronic small vessel ischemic changes. No CT evidence of acute infarction. Moderate sinus disease. IMPRESSION: Slight decrease in the hyperdensity in the left parietal region. This may represent evolving blood products. A subacute infarction with development of laminar necrosis could also have this appearance. Given its somewhat atypical appearance, continued follow-up to resolution is recommended. MACRO: None Normal [facility] Consultson 02-10-2021 Appellate Law Clerk Authentication Interface Message Text Diet Dentist/Owner Nutrition Screening Reason for visit: LOS 5 or more days Assessment Admitting Diagnosis: interparenchymal bleed High risk nutrition diagnosis: No - no points Past Medical History: No past medical history on file. Food Allergies: no Labs: LFT's (last 3 years, up to 5 values) T Prot Albumin D Bili T Bili Alk Phos ALT AST 02/04/21 2356 6.0 4.1 0.30 1.6 52 19 20 Albumin: Greater than 3 - no points Skin Integrity: No pressure ulcers at this time - no points Fluid Accumulation: no Diet Order: Regular % PO Intake: 25-50-75% Intake Difficulties: Decreased appetite - 0 points 5' 9 193.1 lbs UBW: 190# Per pt BMI: 28.52 BMI Screening value: 21 or greater - 0 points % Weight Loss: no Weight Loss Screening Value: Not significant - 0 points Education: No nutrition education indicated at this time. Comments: To encourage po and fluids Number of Points: 0 Nutritional Plan of Care: Less than or equal to 6 points: At this time, patient is at low nutrition risk. DTR to provide routine follow up. Will continue to follow, Felicitas Guerrero, Compounding Technician Pager#[phone] Normal [facility] GLUCOSE, FINGERSTICK-IN OFFI CEon 02-10-2021 Glucose [Mass/Vol] 103 mg/dL Normal 80-116 [facility] Comment on above: Performed By: #### 8 2948 #### NURSING GLUCOSE PROGRAM [address] [place], [address] Glucose [Mass/Vol] 84 mg/dL Normal 80-116 [facility] Comment on above: Result Comment: Foll ow Protocol Performed By: #### 8 2948 #### NURSING GLUCOSE PROGRAM [address] [place], [address] Glucose [Mass/Vol] 125 mg/dL High 80-116 [facility] Comment on above: Performed By: #### 8 2948 #### NURSING GLUCOSE PROGRAM [address] [place], [address] Glucose [Mass/Vol] 130 mg/dL High 80-116 [facility] Comment on above: Performed By: #### 8 2948 #### NURSING GLUCOSE PROGRAM [address] [place], [address] Glucose [Mass/Vol] 139 mg/dL High 80-116 [facility] Comment on above: Performed By: #### 8 2948 #### NURSING GLUCOSE PROGRAM [address] [place], [address] Progress Noteson 02-10-2021 Appellate Law Clerk Authentication Interface Message Text 02/10/21 1703 02/10/21 1706 02/10/21 1709 Vital Signs Heart Rate 80 77 80 BP 126/67 130/74 136/80 MAP (mmHg) 80 mmHg 88 mmHg 94 mmHg BP Position Lying Sitting Standing Orthostatic vitals done. Normal [facility] Appellate Law Clerk Authentication Interface Message Text Attestation signed by Juan Manuel Jarrett MD at 02/10/2021 7:16 PM Patient had episode of wooziness and nausea after taking pain medicine. Is also poor p.o. intake since he has been here. On evaluation this evening, his neurologic exam is stable and he has no new deficits or complaints. No new recommendations at this time Onesimo Jarrett MD Neurology/Neurocritic al Care Neurology service pager (for floor and ED consults): [phone] Neurology Subsequent Note HPI: Sravanthi Araujo???is a 75 year old???right handed???male?w/ PMH colon cancer (s/p resection), Fuchs' dystrophy (s/p multiple corneal transplants), atrial fibrillation (s/p ablation and on Xarelto), COPD, DM type 2, depression, HLD, sleep apnea (not on CPAP) who presented as transfer from OSH after CTH showed 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 Received 2000 units of Kcentra and 10mg Vit K prior to transfer. NSGY consulted on arrival to [facility]. Reporting headache, improved slightly with acetaminophen. 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 Pre-admit mRS: 0 ??? 9/8 Per nursing documentation patient had an episode of vertigo today at ~1330. Word finding difficulties with some confusion. BP documented at 0900 156/72 and during episode 132/72. Did increase Norvasc today and was given a prn dose of hydralazine, both given at 0930. Overnight had another episode of dizziness with flushing. Patient states he wasn't eating much, and he had a pain pill for his neck, and he felt flushed, but he feels fine now. Neuro stable, no dizziness Vital sign ranges over the past 24 hours (retrieved 02/10/2021 at 3:45 PM): Tmax (24 hours): 98.7 ???F (37.1 ???C) Pulse Av Min: 62 Max: 90 Systolic (24hrs), Av , Min:107 , Max:132 Diastolic (24hrs), Av, Min:61, Max:93 MAP (mmHg) Av.2 mmHg Min: 73 mmHg Max: 104 mmHg Resp Av.2 Min: 17 Max: 20 SpO2 Av.2 % Min: 95 % Max: 98 % Neurologic Exam: Cognition Level of consciousness: awake, alert Affect: normal Orientation: oriented x4 Attention: normal Language: intact fluency, repetition, naming, comprehension Visual mcdonald: full (poor vision baseline) Neglect: absent Extinction: absent Right-left confusion: absent Cranial Nerves Vision/fundoscopic: n/a Pupils: irregular (post surgical) OD, 3 mm OS; reactive Spontaneous gaze: no deviation Extraocular movements: intact Facial sensation: intact Facial motor function: symmetric forehead wrinkling and smile Hearing: intact to conversation Palate elevation: symmetric Dysarthria: absent Tongue: midline; able to move fully to R and L Shoulder shrug: normal Motor Tone: normal Drift: absent Spontaneous abnormal movements: none Motor: RUE 5/5 LUE 5/5 RLE 5/5 LLE 5/5 Sensation intact to light touch throughout Coordination R: intact on FNF, HTS L: intact on FNF, HTS Romberg normal General appearance: normal appearing at stated age Head: atraumatic Neck: supple Eyes/orbits: no scleral icterus, edema or injection Mucous membranes: moist Lungs: unlabored Heart: irregular HR Abdomen: non-tender Extremities: no deformities; no joint redness; no joint swelling Skin: no rash; no bruising; no edema Labs: CBC (last 3 years, up to 5 values) WBC RBC Hgb Hct MCV RDW Plt 02/09/219 8.8 4.13 13.4 39.3 95 13.3 202 02/04/21 2356 9.3 4.24 14.0 40.8 96 13.1 184 02/04/21 2120 9.5 4.38 14.2 42.4 97 12.9 193 Basic Metabolic Panel Na K Cl CO2 Gap Glu BUN Cr Ca 02/09/21458 135 4.0 99 28 12 117 12 0.98 9.2 02/04/21 2356 137 3.9 99 28 14 110 11 1.04 9.3 02/04/21 2120 137 4.1 99 27 15 104 11 0.92 9.7 Lab Results Component Value Date HBA1C 6.1 (H) 02/04/2021 Lipids (last 3 years, up to 5 values) Chol- esterol TG HDL LDL Chol / HDL LDL / HDL Non HDL 02/04/212355 91 76 37 44 2.46 1.19 54 Medical Decision Making ASSESSMENT/PLAN: 75 yo right handed M w/ PMHx???colon cancer (s/p resection), Fuchs' dystrophy (s/p multiple corneal transplants), atrial fibrillation (s/p ablation and on Xarelto), COPD, DM type 2, depression, HLD, sleep apnea (not on CPAP) who presented as transfer from OSH after CTH showed 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 CTA head/neck: No significant change in subarachnoid hemorrhage in a left posterior parietal sulcus. No significant stenosis, dissection, or aneurysm in the intracranial or extracranial circulation. ??? MRI head SAH wii L posterior parietal sulci. Urine tox +THC. LDL 44 HbA1c 6.1 T bili ECHO: is 60%. Dilated left atrium, ascending aorta. Concentric left v (more content not included)... Normal [facility] Research Noteon 02-10-2021 Appellate Law Clerk Authentication Interface Message Text SATURN Informed consent given and reviewed with patient???Sravanthi Araujo.?Patient was given time to read and review the informed consent in private. Risks and benefits reviewed and questions answered prior to signing the informed consent.?Patient verbalized understanding of the informed consent and agrees to participate. Signature was obtained and a copy was given to patient. Patient was also contacted and verbalized understanding of the trial. ??? No study related procedures were done prior to signature on the informed consent. ??? Dinorah Roach RN ??? TASNEEM [id number] Jacquard Loom Carpet Weaver: Dr. Kelly Cooney Normal [facility] BASIC METABOLIC PANELon 09-0 Anion gap [Moles/Vol] 12 mmol/L Normal 5-13 [facility] Comment on above: Performed By: #### 8 2948 #### NURSING GLUCOSE PROGRAM [address] [place], [address] Calcium [Mass/Vol] 9.2 mg/dL Normal 8.4-10.4 [facility] Comment on above: Performed By: #### 8 2948 #### NURSING GLUCOSE PROGRAM [address] [place], [address] Chloride [Moles/Vol] 99 mmol/L Normal 97-111 [facility] Comment on above: Performed By: #### 8 2948 #### NURSING GLUCOSE PROGRAM [address] [place], [address] CO2 [Moles/Vol] 28 mmol/L Normal 21-30 [facility] Comment on above: Performed By: #### 8 2948 #### NURSING GLUCOSE PROGRAM [address] [place], [address] Creatinine [Mass/Vol] 0.98 mg/dL Normal 0.80-1.30 [facility] Comment on above: Performed By: #### 8 2948 #### NURSING GLUCOSE PROGRAM [address] [place], [address] ESTIMATED GFR (CKD-EPI) 75 mL/min/1.73sqm Normal >=60 The [facility] Comment on above: Performed By: #### 8 2948 #### NURSING GLUCOSE PROGRAM [address] [place], [address] Glucose [Mass/Vol] 117 mg/dL High 80-116 [facility] Comment on above: Performed By: #### 8 2948 #### NURSING GLUCOSE PROGRAM [address] [place], [address] Potassium [Moles/Vol] 4.0 mmol/L Normal 3.3-5.3 [facility] Comment on above: Performed By: #### 8 2948 #### NURSING GLUCOSE PROGRAM [address] [place], [address] Sodium [Moles/Vol] 135 mmol/L Normal 135-148 The [facility] Comment on above: Performed By: #### 8 2948 #### NURSING GLUCOSE PROGRAM [address] [place], [address] Urea nitrogen [Mass/Vol] 12 mg/dL Normal 8-22 [facility] Comment on above: Performed By: #### 8 2948 #### NURSING GLUCOSE PROGRAM [address] [place], [address] CBC WITH DIFFERENTIALon 09-0 -2020 Basophils (Bld) [#/Vol] 0.04 10*3/uL Normal 0.00-0.20 [facility] Comment on above: Performed By: #### C BCDSAT ####[facility] PATHOLOGY [id number] [place], [place], Basophils/100 WBC (Bld) 0.5 % Normal <=1.9 [facility] Comment on above: Performed By: #### C BCDSAT ####[facility] PATHOLOGY [id number] [place], [place], Eosinophils (Bld) [#/Vol] 0.55 10*3/uL Normal 0.00-0.70 [facility] Comment on above: Performed By: #### C BCDSAT ####[facility] PATHOLOGY [id number] [place], [place], Eosinophils/100 WBC (Bld) 6.3 % High 0.1-4.0 [facility] Comment on above: Performed By: #### C BCDSAT ####S PATHOLOGY [id number] [place], [place], Erythrocyte distribution width (RBC) [Ratio] 13.3 % Normal 11.5-14.5 [facility] Comment on above: Performed By: #### C BCDSAT ####S PATHOLOGY [id number] [place], [place], Hematocrit (Bld) [Volume fraction] 39.3 % Low 41.0-53.0 The [facility] Comment on above: Performed By: #### C LETTYAT ####[facility] PATHOLOGY [id number] [place], [place], Hemoglobin (Bld) [Mass/Vol] 13.4 g/dL Low 13.9-16.3 [facility] Comment on above: Performed By: #### C LETTYAT ####[facility] PATHOLOGY [id number] [place] [address], Lymphocytes (Bld) [#/Vol] 1.50 10*3/uL Normal 1.00-4.80 [facility] Comment on above: Performed By: #### C LETTYAT ####[facility] PATHOLOGY [id number] [place] [address], Lymphocytes/100 WBC (Bld) 17.0 % Low 24.0-44.0 [facility] Comment on above: Performed By: #### Flor SAENZAT ####[facility] PATHOLOGY [id number] [place] [address], MCH (RBC) [Entitic mass] 32.4 pg Normal 26.0-34.0 [facility] Comment on above: Performed By: #### Flor SAENZAT ####[facility] PATHOLOGY [id number] [place] [address], MCHC (RBC) [Mass/Vol] 34.0 g/dL Normal 32.0-35.9 [facility] Comment on above: Performed By: #### Flor SAENZAT ####[facility] PATHOLOGY [id number] [place] [address], MCV (RBC) [Entitic vol] 95 fL Normal 80-100 [facility] Comment on above: Performed By: #### Flor SAENZAT ####[facility] PATHOLOGY [id number] [place] [address], MONOCYTE DISTRIBUTION WIDTH Normal [facility] Comment on above: Performed By: #### Flor SAENZAT ####[facility] PATHOLOGY [id number] [place] [address], Monocytes (Bld) [#/Vol] 0.78 10*3/uL Normal 0.20-1.00 [facility] Comment on above: Performed By: #### C BCDSAT ####[facility] [id number] [place], [place], Monocytes/100 WBC (Bld) 8.9 % Normal 2.0-11.0 [facility] Comment on above: Performed By: #### C JUDSAT ####[facility] [id number] [place], [place], Neutrophils (Bld) [#/Vol] 5.90 10*3/uL Normal 1.50-8.00 [facility] Comment on above: Performed By: #### C JUDSAT ####[facility] [id number] [place], [place], Neutrophils/100 WBC (Bld) 67.3 % Normal 31.0-76.0 [facility] Comment on above: Performed By: #### C JUDSAT ####S PATHOLOGY [id number] [place], [place], Platelet mean volume (Bld) [Entitic vol] 8.3 fL Normal 7.5-11.2 The [facility] Comment on above: Performed By: #### C LETTYAT ####[facility] [id number] [place], [place], Platelets (Bld) [#/Vol] 202 10*3/uL Normal 150-400 [facility] Comment on above: Performed By: #### C JUDSAT ####[facility] [id number] [place], [place], RBC (Bld) [#/Vol] 4.13 10*6/uL Low 4.50-5.90 The [facility] Comment on above: Performed By: #### C BCDSAT ####[facility] [id number] [place], [place], WBC (Bld) [#/Vol] 8.8 10*3/uL Normal 4.5-11.5 The [facility] Comment on above: Performed By: #### C BCDSAT ####[facility] [id number] [place], [address] GLUCOSE, FINGERSTICK-IN OFFI CEon 02-09-2021 Glucose [Mass/Vol] 172 mg/dL High 80-116 [facility] Comment on above: Performed By: #### 8 2948 #### NURSING GLUCOSE PROGRAM [address] [place], [address] Glucose [Mass/Vol] 120 mg/dL High 80-116 [facility] Comment on above: Performed By: #### 8 2948 ####NURSING GLUCOSE [id number] [place], [address] Glucose [Mass/Vol] 123 mg/dL High 80-116 [facility] Comment on above: Performed By: #### 8 2948 #### NURSING GLUCOSE PROGRAM [address] [place], [address] Glucose [Mass/Vol] 150 mg/dL High 80-116 [facility] Comment on above: Result Comment: Diomedes kowalski RN, APN, MD Performed By: #### 8 2948 ####NURSING GLUCOSE [id number] [place], [address] Progress Noteson 02-09-2021 Appellate Law Clerk Authentication Interface Message Text Attestation signed by Ronda Voss DO at 02/10/2021 12:12 AM Teaching Physician Note: I saw and evaluated the patient. I personally obtained the greene and critical portions of the history and physical exam. I reviewed the resident's documentation and discussed the patient with the resident. I agree with the resident's medical decision making as documented in the resident's note. Ronda Voss DO INTERNAL MEDICINE TEAM 9 DAILY PROGRESS NOTE Patient: Sravanthi Araujo : 1945 Sex: male Room: 80[facility] Admit Date: 02/04/2021 Today's Date: 02/09/2021 Length of stay: 5 day(s) HOSPITAL COURSE: Patient is a 75yo male, transfer from [facility], w/ history of Afib (usually on xarelto), T2DM, and colon cancer (s/p resection) who was originally sent here from OSH after CT head showed acute L parietal cortical ICH in setting of taking Xarelto for Afib. The actual etiology of the ICH is unclear. His was beurologically stable and deemed stable enough to transfer from [facility] to [facility], with a goal of systolic blood pressure <140. While on the medicine floor, he has been neurologically stable, but his blood has been running borderline and occasionally elevated during the afternoons. EVENTS IN PAST 24H: No overnight events, but blood pressure trend curve still shows elevated Bps in the afternoon, but did not receive any PRN hydralazine. His ECHO was WNL (see below). SUBJECTIVE: Patient is resting comfortably. He reports that he is feeling well and wants to get home. He still has a headache but reports he is not concerned and that pain medications do help. However, he does not like taking medications so has not been taking anything. He denies change in vision, weakness, numbness, tingling, chest pain, SOB, headache or any other symptoms. OBJECTIVE: Patient Vitals for the past 24 hrs: BP Temp Temp src Pulse Resp SpO2 O2 Device 02/09/21 1648 122/64 98.1 ???F (36.7 ???C) Oral 82 17 96 % Room air 02/09/21 1300 132/72 -- -- 74 18 95 % -- 02/09/21 1217 144/86 97.9 ???F (36.6 ???C) Oral 71 18 94 % Room air 02/09/21 0858 156/72 98.2 ???F (36.8 ???C) Oral 80 18 95 % Room air 02/09/21 0400 136/78 97.8 ???F (36.6 ???C) Oral 73 18 95 % Room air 02/09/21 0053 126/77 97.6 ???F (36.4 ???C) Oral 73 18 96 % -- 02/08/211999 127/80 97.7 ???F (36.5 ???C) Oral 76 18 95 % Room air Is/Os Baseline Weight Admission Weight Weight: 193 lb 1.6 oz (87.6 kg) Today's Weight Weight: 193 lb 1.6 oz (87.6 kg) BMI 28.52 Change in Weight: Current value is 193.1 lb (87.589 kg) on 02/04/2021 at 2327 No other value found for comparison Intake/Output Summary (Last 24 hours) at 02/09/20211951 Last data filed at 02/09/2021 1800 Gross per 24 hour Intake 480 ml Output -- Net 480 ml No intake/output data recorded. Physical Exam: Physical Exam Vitals reviewed. Constitutional: General: He is not in acute distress. Appearance: Normal appearance. He is not ill-appearing. HENT: Head: Normocephalic and atraumatic. Right Ear: External ear normal. Left Ear: External ear normal. Mouth/Throat: Mouth: Mucous membranes are moist. Pharynx: Oropharynx is clear. No oropharyngeal exudate or posterior oropharyngeal erythema. Eyes: General: No scleral icterus. Extraocular Movements: Extraocular movements intact. Conjunctiva/sclera: Conjunctivae normal. Pupils: Pupils are equal, round, and reactive to light. Cardiovascular: Rate and Rhythm: Normal rate. Comments: Irregularly irregular Pulmonary: Effort: Pulmonary effort is normal. No respiratory distress. Breath sounds: Normal breath sounds. No wheezing, rhonchi or rales. Abdominal: General: Abdomen is flat. Bowel sounds are normal. There is no distension. Palpations: Abdomen is soft. Tenderness: There is no abdominal tenderness. There is no guarding. Hernia: No hernia is present. Musculoskeletal: General: No swelling. Normal range of motion. Cervical back: Normal range of motion. Skin: General: Skin is warm and dry. Capillary Refill: Capillary refill takes less than 2 seconds. Coloration: Skin is not jaundiced. Neurological: General: No focal deficit present. Mental Status: He is alert and oriented to person, place, and time. Sensory: No sensory deficit. Motor: No weakness. Coordination: Coordination normal. Comments: CN I and CN II not tested (pt denies change in smell/taste) CN III - EOMI, no visual field deficits CN IV- EOMI CN V- normal facial sensation CN - EOMI CN VII- normal symmetric facial expressions, no facial droop CN VIII- normal hearing, finger rub heard at 4inch bilaterally CN IX, X, XII - normal tongue motion, no tongue deviation, no uvular deviation CN XI - 5/5 strength Trapezius/SCM symmetric Psychiatric: Mood and Affect: Moo (more content not included)... Normal [facility] Appellate Law Clerk Authentication Interface Message Text Attestation signed by Juan Manuel Jarrett MD at 02/09/2021 10:33 PM By description his symptoms may have been due to BPPV. His ICH would not cause transient symptoms like this. Central vertigo would be persistent. Low suspicion for worsening or new bleed at this point in time. Recommend orthostatics and monitoring. 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 Received 2000 units of Kcentra and 10mg Vit K prior to transfer. NSGY consulted on arrival to [facility]. Reporting headache, improved slightly with acetaminophen. 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 Pre-admit mRS: 0 ??? Events since prior visit: Per nursing documentation patient had an episode of vertigo today at ~1330. Word finding difficulties with some confusion. BP documented at 0900 156/72 and during episode 132/72. Did increase Norvasc today and was given a prn dose of hydralazine, both given at 0930. Patient reiterates above episode of dizziness while in bed when he rolled from his side to his back. He became diaphoretic, nauseated (no vomiting). Lasted a few minutes. He did not report chest pain or palpitations during his episode. He presently feels he is back to his baseline. His is ambulating without difficulty. Cont to report ongoing headache, mildly improved. Has had a headache since admission. He denies dizziness. Denies vision changes. Tolerating a diet. No current facility-administered medications on file prior to encounter. Current Outpatient Medications on File Prior to Encounter Medication Sig Dispense Refill * tamsulosin (FLOMAX) 0.4 MG capsule Take 0.4 mg by mouth daily. * sildenafil citrate (Viagra) 100 MG tablet Take 100 mg by mouth as needed for Erectile Dysfunction. * Xarelto 20 MG tablet * metoprolol (LOPRESSOR) 50 MG tablet * atorvastatin (LIPITOR) 40 mg tablet * fluoxetine (PROZAC) 40 MG capsule * metformin (GLUCOPHAGE) 1000 MG tablet Take 1 Tablet by mouth 2 times daily. * zolpidem (AMBIEN) 10 MG tablet Vital sign ranges over the past 24 hours (retrieved 02/09/2021 at 4:42 PM): Tmax (24 hours): 98.2 ???F (36.8 ???C) Pulse Av.4 Min: 71 Max: 102 Systolic (24hrs), Av , Min:126 , Max:156 Diastolic (24hrs), Av, Min:72, Max:86 MAP (mmHg) Av.5 mmHg Min: 90 mmHg Max: 105 mmHg Resp Av Min: 18 Max: 18 SpO2 Av.7 % Min: 94 % Max: 100 % Current Facility-Administered Medications: * hydrALAZINE (APRESOLINE) 25 MG tablet, 25 mg, Oral, One Time Dose, Chilo Ramírez DO * hydrALAZINE (APRESOLINE) 25 MG tablet, 25 mg, Oral, Q8H PRN, Chilo Ramírez DO, 25 mg at 02/09/21 0937 * amLODIPine (NORVASC) 10 MG tablet, 10 mg, Oral, Daily, Ronnie Encarnacion MD, 10 mg at 02/09/21 0937 * insulin lispro (HumaLOG) 100 UNIT/ML injection, 2-9 Units, Subcutaneous, 3x Daily AC, Elizabeth Escalera DO, 2 Units at 02/07/21 1230 * melatonin 5 mg tablet, 5 mg, Oral, At Bedtime, Jennifer Riggs MD, 5 mg at 02/08/21 2130 * [MAR Hold] fluticasone (FLOVENT HFA) 220 MCG/ACT inhaler, 1 Puff, Inhalation, BID RT, Jennifer Riggs MD * sucralfate (CARAFATE) 1 GM/10ML oral suspension, 1 g, Oral, 4x Daily, Jennifer Riggs MD, 1 g at 02/09/21 1358 * acetaminophen (TYLENOL) 325 mg tablet, 650 mg, Oral, Q6H PRN, Jennifer Riggs MD, 650 mg at 02/06/21 1302 * prednisoLONE acetate (PRED FORTE) 1 % ophthalmic suspension, 1 Drop, Both Eyes, Daily, Jennifer Riggs MD, 1 Drop at 02/09/21 0937 * oxyCODONE 5 MG immediate release tablet, 5 mg, Oral, Q6H PRN, Jennifer Riggs MD, 5 mg at 02/09/21 0947 * atorvastatin (LIPITOR) 40 mg tablet, 40 mg, Oral, At Bedtime, Jennifer Riggs MD, 40 mg at 02/08/212129 * fluoxetine (PROZAC) 20 MG capsule, 40 mg, Oral, Daily, Jennifer Riggs MD, 40 mg at 02/09/21 0937 * metoprolol (LOPRESSOR) 50 MG tablet, 50 mg, Oral, 2x Daily, Jennifer Riggs MD, 50 mg at 02/09/21 0937 * [MAR Hold] ipratropium-albuterol (DUO-NEB) 0.5-2.5 (3) MG/3ML nebulizer solution, 3 mL, Nebulization, Q4H RT, Jennifer Riggs MD * [MAR Hold] albuterol (PROVENTIL) (2.5 MG/3ML) 0.083% nebulizer solution, 2.5 mg, Nebulization, Q4H RT, Jennifer Riggs MD * albuterol (PROVENTIL) (2.5 MG/3ML) 0.08 (more content not included)... Normal [facility] Appellate Law Clerk Authentication Interface Message Text Dr. Ramírez notified that patient had an episode of vertigo. Patient stated he was laying on his left side and when he turned to lay on his back the room started spinning like crazy and he started gagging like he was going to throw up. Patient said during the episode he felt super hot and clammy like his skin was burning. Patient said he feels like he is having a harder time getting his words out and the sister said he seems more confused today as well. The patient's blood pressure decreased 132/72 from his previous blood pressure an hour earlier. All other vitals were unchanged. Dr. Ramírez said he will come see the patient and ordered to not give the one time dose of hydralazine ordered for the previous BP of 144/86. At this time, patient said he feels back to normal but still feels a little confused. Normal [facility] GLUCOSE, FINGERSTICK-IN OFFI CEon 02-08-2021 Glucose [Mass/Vol] 124 mg/dL High 80-116 [facility] Comment on above: Performed By: #### [id number] #### NURSING GLUCOSE PROGRAM [address] [place], [address] Glucose [Mass/Vol] 130 mg/dL High 80-116 [facility] Comment on above: Performed By: #### 8 [id number] #### NURSING GLUCOSE PROGRAM [address] [place], [address] Glucose [Mass/Vol] 119 mg/dL High 80-116 [facility] Comment on above: Performed By: #### [id number] ####NURSING GLUCOSE [id number] [place], [address] Multidisciplinary Noteon Appellate Law Clerk Authentication Interface Message Text Multidisciplinary team met today during morning rounds Stroke patient vineyardist goal is to return home. Stroke patient short term goal(s) is have ECHO done. Comments RN assisted with goals. Normal [facility] Procedureson 02-08-2021 Appellate Law Clerk Authentication Interface Message Text Transthoracic Echocardiographic Report Name: BIJAL Funez Physician: : 1945 Referring DASHA RUDOLPH Physician: Age: 75 Global Transportation Manager: Varsha Hook RDCS Exam Date: 02/08/2021 Fellow: 11:14 AM CVT: PCP: Gender: Male Height 175.26 cm Weight 87.5448 kg Encounter #: BSA 2.03 m2 Study IP Non-Unit BMI 28.5 kg/m2 Location: Technical Fair-Good Quality: Type of Study: TTE procedure: 2D echocardiogram, M-Mode, Doppler , Color Doppler. Indications for Study:Cardiomyopathy. Tech. Comments Patient's preferred language is Tuvaluan . Patient identified by name and date of . Doctor's order(s) verified. Supine BP: 150/76 mmHg Patient Status: Routine Left Ventricle Value Normal Value Normal LVIDd: 4.7 cm <5.7 cm Post. Wall 1.6 cm <1.2 cm Thickness: Septum 1.65 <1.2 cm LV FS: 32.98 % 30-40% Diastolic: cm Systolic 3.15 <4 cm LV Mass 400.98g Dimension: cm LV Mass Index: 198 <110 Women<120 g/m2 Men Left Atrium LA Dimension: 4.7 cm <3.92cm Right Cavities Ventricle Atrium RV (apical 4): 4.38 <4.3 cm RA (apical 4): 4.79 cm <4.6 cm cm Vessels Sinus of 3.6cm Valsalva: Findings/Conclusions Chambers LV Left ventricular systolic function is normal. The left ventricular ejection fraction (LVEF) is 60% +/- 5%by the biplane summation of discs (Simons's rule) method. Left ventricular hypertrophy is present. The hypertrophy is concentric. LA The left atrium is enlarged. The left atrial volume index is 54 mL/m2 (normal: <35 mL/m2, mild: 35-41 mL/m2, moderate: 42-48 mL/m2, severe: >48 mL/m2). RV Normal right ventricular size and function. The tricuspid annular plane systolic excursion (TAPSE, a marker of RV systolic function) is normal at 18 mm (normal >16 mm). RA Normal right atrium. Valves AV There is mild aortic regurgitation. MV Mitral annular fibrocalcific changes are present and are moderate. TV Normal tricuspid valve. PV Normal pulmonic valve. Great Vessels Normal sinus of Valsalva. The ascending aorta is dilated. This dilation is mild and measures 4.1 cm. Pericardium/Pleura No evidence of a pericardial effusion. Hemodynamics Estimated pulmonary artery systolic pressure is 38 mmHg +/- 5 mmHg. (Upper normal is <40 mmHg). Estimated RA pressure is 5 mmHg. Summary Normal LV systolic function. The left ventricular ejection fraction (LVEF) is 60%. Diastolic LV function assessed by resting Doppler is uncertain. Normal RV systolic function. Dilated left atrium, ascending aorta. Concentric left ventricular hypertrophy is present. Mild aortic, tricuspid valve regurgitation. Noninvasive hemodynamic assessment is consistent with upper normal pulmonary artery systolic pressure, a normal CVP. See above for further details. 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 Received 2000 units of Kcentra and 10mg Vit K prior to transfer. NSGY consulted on arrival to [facility]. Reporting headache, improved slightly with acetaminophen. 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 Pre-admit mRS: 0 ??? Patient was found in the waiting room on floor 9 with his family. He has no complaints specifically no headaches, dizziness, no vision changes. No shortness of breath, chest pain. No nausea. Tolerating diet. Ambulating without difficulty. Anxious to go home. ??? No current facility-administered medications on file prior to encounter. Current Outpatient Medications on File Prior to Encounter Medication Sig Dispense Refill * tamsulosin (FLOMAX) 0.4 MG capsule Take 0.4 mg by mouth daily. * sildenafil citrate (Viagra) 100 MG tablet Take 100 mg by mouth as needed for Erectile Dysfunction. * Xarelto 20 MG tablet * metoprolol (LOPRESSOR) 50 MG tablet * atorvastatin (LIPITOR) 40 mg tablet * fluoxetine (PROZAC) 40 MG capsule * metformin (GLUCOPHAGE) 1000 MG tablet Take 1 Tablet by mouth 2 times daily. * zolpidem (AMBIEN) 10 MG tablet Vital sign ranges over the past 24 hours (retrieved 02/08/2021 at 1:37 PM): Tmax (24 hours): 98.7 ???F (37.1 ???C) Pulse Av.7 Min: 67 Max: 96 Systolic (24hrs), Av , Min:132 , Max:150 Diastolic (24hrs), Av, Min:76, Max:87 MAP (mmHg) Av.8 mmHg Min: 92 mmHg Max: 103 mmHg Resp Av.8 Min: 17 Max: 18 SpO2 Av % Min: 92 % Max: 100 % Current Facility-Administered Medications: * [START ON 02/09/2021] amLODIPine (NORVASC) 10 MG tablet, 10 mg, Oral, Daily, Ronnie Encarnacion MD * insulin lispro (HumaLOG) 100 UNIT/ML injection, 2-9 Units, Subcutaneous, 3x Daily AC, Elizabeth Escalera, , 2 Units at 02/07/21 1230 * melatonin 5 mg tablet, 5 mg, Oral, At Bedtime, Jennifer Riggs MD, 5 mg at 02/07/212129 * [MAR Hold] fluticasone (FLOVENT HFA) 220 MCG/ACT inhaler, 1 Puff, Inhalation, BID RT, Jennifer Riggs MD * sucralfate (CARAFATE) 1 GM/10ML oral suspension, 1 g, Oral, 4x Daily, Jennifer Riggs MD, 1 g at 02/08/21 1240 * acetaminophen (TYLENOL) 325 mg tablet, 650 mg, Oral, Q6H PRN, Jennifer Riggs MD, 650 mg at 02/06/21 1302 * prednisoLONE acetate (PRED FORTE) 1 % ophthalmic suspension, 1 Drop, Both Eyes, Daily, Jennifer Riggs MD, 1 Drop at 02/08/21918 * oxyCODONE 5 MG immediate release tablet, 5 mg, Oral, Q6H PRN, Jennifer Riggs MD, 5 mg at 02/07/212129 * atorvastatin (LIPITOR) 40 mg tablet, 40 mg, Oral, At Bedtime, Jennifer Riggs MD, 40 mg at 02/07/212129 * fluoxetine (PROZAC) 20 MG capsule, 40 mg, Oral, Daily, Jennifer Riggs MD, 40 mg at 02/08/21918 * metoprolol (LOPRESSOR) 50 MG tablet, 50 mg, Oral, 2x Daily, Jennifer Riggs MD, 50 mg at 02/08/21918 * [MAR Hold] ipratropium-albuterol (DUO-NEB) 0.5-2.5 (3) MG/3ML nebulizer solution, 3 mL, Nebulization, Q4H RT, Jennifer Riggs MD * [MAR Hold] albuterol (PROVENTIL) (2.5 MG/3ML) 0.083% nebulizer solution, 2.5 mg, Nebulization, Q4H RT, Jennifer Riggs MD * albuterol (PROVENTIL) (2.5 MG/3ML) 0.083% nebulizer solution, 2.5 mg, Nebulization, Q4H PRN, Jennifer Riggs MD, 2.5 mg at 02/06/21 2348 * [MAR Hold] ipratropium (ATROVENT) 0.02 % nebulizer solution, 0.5 mg, Nebulization, Q4H RT, Jennifer Riggs MD * dextrose 50 % injection, 12.5 g, Intravenous Push, PRN OR glucagon (GLUCAGEN) 1 MG injection, 1 mg, Subcutaneous, PRN OR dextrose (GLUTOSE) 40 % gel, 15 g of glucose, Buccal, PRN OR dextrose (GLUTOSE) 40 % gel, 30 g of glucose, Buccal, PRN, Jennifer Riggs MD * senna (SENOKOT) 8.6 MG tablet, 8.6 mg, Oral, At Bedtime, Jennifer Riggs MD, 8.6 mg at 02/07/21 2130 Neurologic Exam: Cognition Level of consciousness: awake, alert Affect: normal Orientation: oriented x4 Attention: normal Language: intact fluency, repetition, naming, comprehension Visual mcdonald: full Neglect: absent Extinction: absent Right-left confusion: absent Cranial Nerves Vision/fundoscopic: n/a Pupils: 3 mm OD, 3 mm OS; reactive to light B Spontaneous gaze: no deviation Extraocular movements: intact at 6 positions of gaze Facial sensation: intact Facial motor function: symmetric forehead wrinkling and smile Hearing: intact to conversation Palate elevation: symmetric Dysarthria: absent Tongue: midline; able to move fully to R and L Shoulder (more content not included)... Normal [facility] [employer] [facility] Authentication Interface Message Text Attestation signed by Ronda Voss DO at 02/08/2021 11:28 PM Teaching Physician Note: I saw and evaluated the patient. I personally obtained the greene and critical portions of the history and physical exam. I reviewed the resident's documentation and discussed the patient with the resident. I agree with the resident's medical decision making as documented in the resident's note. Neurologically stable. No deficits on my exam BP 127/80 (BP Location: left arm) Pulse 76 Temp 97.7 ???F (36.5 ???C) (Oral) Resp 18 Ht 5' 9 (1.753 m) Wt 193 lb 1.6 oz (87.6 kg) SpO2 95% PF 320 L/min BMI 28.52 kg/m??? RR,CTABL. Abd soft, 55/ in all extremities. CN ii-xii intact AP: ICH - imaging stable on rpt. MRI w/o vascular pathology -NCC recommend 2-4 wks prior to starting AC. -etiol of ICH ?htn or CAA (however no e/o prior small strokes on mri to corraborate) -inc'd norvasc to 10 for bp - goal <140 -echo noted. -will need Neuro f/u as OP, in addition to PCP and Cardiology as OP AF - hold xearlto per NCC./NSGY/ clarify restart for either 2 to 4 wks. Ronda Voss DO INTERNAL MEDICINE TEAM 9 DAILY PROGRESS NOTE Patient: Sravanthi Araujo : 1945 Sex: male Room: [place] [address] Admit Date: 02/04/2021 Today's Date: 02/08/2021 Length of stay: 4 day(s) HOSPITAL COURSE: Patient is a 75yo male, transfer from [facility], w/ history of Afib (usually on xarelto), T2DM, and colon cancer (s/p resection) who was originally sent here from OSH after CT head showed acute L parietal cortical ICH in setting of taking Xarelto for Afib. Deemed stable enough to transfer from [facility] to [facility]. EVENTS IN PAST 24H: Family came yesterday and was able to have long discussion about course, medications, and future course. No overnight events. SUBJECTIVE: Patient was sleeping hard, required light sternal rub to wake up. Had received oxycodone last night. Afterwards awake and alert. He reports feeling well with continued headaches that improve with oxycodone, which he has been requiring less of. He also states that this headache is similar to at home, which he never takes anything for it. He denies change in vision, weakness, numbness, tingling, chest pain, SOB, headache or any other symptoms. OBJECTIVE: Patient Vitals for the past 24 hrs: BP Temp Temp src Pulse Resp SpO2 O2 Device 02/08/21 2000 127/80 97.7 ???F (36.5 ???C) Oral 76 18 95 % Room air 02/08/21 1654 148/86 98.2 ???F (36.8 ???C) Oral 102 18 100 % Room air 02/08/21 1200 141/87 98.3 ???F (36.8 ???C) Oral 96 17 100 % Room air 02/08/21 0800 150/76 98.3 ???F (36.8 ???C) Oral 94 18 99 % Room air 02/08/21 0410 139/80 98.2 ???F (36.8 ???C) Oral 75 18 92 % Room air 02/08/21 0022 140/85 97.6 ???F (36.4 ???C) Oral 67 18 95 % Room air 02/07/21 2130 -- -- -- 83 -- -- -- Is/Os Baseline Weight Admission Weight Weight: 193 lb 1.6 oz (87.6 kg) Today's Weight Weight: 193 lb 1.6 oz (87.6 kg) BMI 28.52 Change in Weight: Current value is 193.1 lb (87.589 kg) on 02/04/2021 at 2327 No other value found for comparison Intake/Output Summary (Last 24 hours) at 02/08/2021 2113 Last data filed at 02/08/2021 0900 Gross per 24 hour Intake 371 ml Output -- Net 371 ml In: 371 (4.2 mL/kg) [P.O.:371] Out: - (0 mL/kg) Net: 371 Weight: 87.6 kg Physical Exam: Physical Exam Vitals reviewed. Constitutional: General: He is not in acute distress. Appearance: Normal appearance. He is not ill-appearing. HENT: Head: Normocephalic and atraumatic. Right Ear: External ear normal. Left Ear: External ear normal. Mouth/Throat: Mouth: Mucous membranes are moist. Pharynx: Oropharynx is clear. No oropharyngeal exudate or posterior oropharyngeal erythema. Eyes: General: No scleral icterus. Extraocular Movements: Extraocular movements intact. Conjunctiva/sclera: Conjunctivae normal. Pupils: Pupils are equal, round, and reactive to light. Cardiovascular: Rate and Rhythm: Normal rate. Comments: Irregularly irregular Pulmonary: Effort: Pulmonary effort is normal. No respiratory distress. Breath sounds: Normal breath sounds. No wheezing, rhonchi or rales. Abdominal: General: Abdomen is flat. Bowel sounds are normal. There is no distension. Palpations: Abdomen is soft. Tenderness: There is no abdominal tenderness. There is no guarding. Hernia: No hernia is present. Musculoskeletal: General: No swelling. Normal range of motion. Cervical back: Normal range of motion. Skin: General: Skin is warm and dry. Capillary Refill: Capillary refill takes less than 2 seconds. Coloration: Skin is not jaundiced. Neurological: General: No focal deficit present. Mental Status: He is alert and oriented to person, place, and time. Sensory: No sensory deficit. Motor: No weakness. Coordin (more content not included)... Normal [facility] GLUCOSE, FINGERSTICK-IN OFFI CEon 02-07-2021 Glucose [Mass/Vol] 190 mg/dL High 80-116 [facility] Comment on above: Performed By: #### [id number] ####NURSING GLUCOSE [id number] [place] [address], [address] Glucose [Mass/Vol] 78 mg/dL Low 80-116 [facility] Comment on above: Performed By: #### 8 2948 ####NURSING GLUCOSE [id number] [place], [address] Glucose [Mass/Vol] 170 mg/dL High 80-116 [facility] Comment on above: Performed By: #### T ROP I #### [facility] [address] [place], [address] Glucose [Mass/Vol] 124 mg/dL High 80-116 [facility] Comment on above: Performed By: #### 8 [id number] ####NURSING GLUCOSE [id number] [place], [address] Multidisciplinary Noteon Appellate Law Clerk Authentication Interface Message Text Multidisciplinary team met today during morning rounds Stroke patient residential goal is to return home. Stroke patient short term goal(s) is to have all testing completed. Comments RN assisted w/goals. Normal [facility] Progress Noteson 02-07-2021 Appellate Law Clerk Authentication Interface Message Text Attestation signed by Ronda Voss DO at 02/07/2021 11:32 PM (Updated) Teaching Physician Note: I saw and evaluated the patient. I personally obtained the greene and critical portions of the history and physical exam. I reviewed the resident's documentation and discussed the patient with the resident. I agree with the resident's medical decision making as documented in the resident's note. ICH - imaging stable on rpt. MRI w/o vascular pathology -NCC recommend 2-4 wks prior to starting AC. -etiol of ICH ?htn -improve BP control - addition Norvasc tooday -f/u echo -monitor fro BP control. -will need Neuro f/u as OP, in addition to PCP and Cardiology as OP AF - hold xearlto per NCC./NSGY Ornda M. Glagola, DO INTERNAL MEDICINE TEAM 9 DAILY PROGRESS NOTE Patient: Sravanthi Araujo : 1945 Sex: male Room: [facility] [place]/ Admit Date: 02/04/2021 Today's Date: 02/07/2021 Length of stay: 3 day(s) HOSPITAL COURSE: Patient is a 75yo male, transfer from [facility], w/ history of Afib (usually on xarelto), T2DM, and colon cancer (s/p resection) who was originally sent here from OSH after CT head showed acute L parietal cortical ICH in setting of taking Xarelto for Afib. Deemed stable enough to transfer from [facility] to [facility]. EVENTS IN PAST 24H: NAEON. SUBJECTIVE: Patient states that nausea and shortness of breath are better now. Denies chest pain and abdominal pain. Does have a headache that comes and goes, as well as some neck pain. OBJECTIVE: Patient Vitals for the past 24 hrs: BP Temp Temp src Pulse Resp SpO2 O2 Device 02/07/21 1643 150/81 97.6 ???F (36.4 ???C) Oral 92 18 96 % Room air 02/07/21 1224 142/87 97.9 ???F (36.6 ???C) Oral 90 18 92 % Room air 02/07/21 0826 150/84 97.9 ???F (36.6 ???C) Oral 78 18 93 % Room air 02/07/21 0408 138/88 98.7 ???F (37.1 ???C) Temporal 80 18 96 % Room air 02/07/21 0017 132/82 98.7 ???F (37.1 ???C) Temporal 85 18 97 % Room air 02/06/21 2353 -- -- -- 87 18 97 % Room air 02/06/21 2348 -- -- -- 88 16 -- Room air 02/06/212051 142/72 99.2 ???F (37.3 ???C) Temporal 87 16 94 % Room air Is/Os Baseline Weight Admission Weight Weight: 193 lb 1.6 oz (87.6 kg) Today's Weight Weight: 193 lb 1.6 oz (87.6 kg) BMI 28.52 Change in Weight: Current value is 193.1 lb (87.589 kg) on 02/04/2021 at 2327 No other value found for comparison Intake/Output Summary (Last 24 hours) at 02/07/20211956 Last data filed at 02/07/2021 0939 Gross per 24 hour Intake 0 ml Output -- Net 0 ml No intake/output data recorded. Physical Exam: Physical Exam Vitals reviewed. Constitutional: General: He is not in acute distress. Appearance: Normal appearance. He is not ill-appearing. HENT: Head: Normocephalic and atraumatic. Right Ear: External ear normal. Left Ear: External ear normal. Nose: Nose normal. No congestion or rhinorrhea. Mouth/Throat: Mouth: Mucous membranes are moist. Pharynx: Oropharynx is clear. No oropharyngeal exudate or posterior oropharyngeal erythema. Eyes: General: No scleral icterus. Extraocular Movements: Extraocular movements intact. Conjunctiva/sclera: Conjunctivae normal. Pupils: Pupils are equal, round, and reactive to light. Cardiovascular: Rate and Rhythm: Normal rate. Rhythm irregular. Pulses: Normal pulses. Heart sounds: Normal heart sounds. No murmur heard. Pulmonary: Effort: Pulmonary effort is normal. No respiratory distress. Breath sounds: No wheezing, rhonchi or rales. Abdominal: General: Abdomen is flat. Bowel sounds are normal. There is no distension. Palpations: Abdomen is soft. Tenderness: There is no abdominal tenderness. There is no guarding. Hernia: No hernia is present. Musculoskeletal: Cervical back: Normal range of motion. Neurological: General: No focal deficit present. Mental Status: He is alert and oriented to person, place, and time. Comments: 5/5 strength and symmetric: UE and LE Normal gait CN I and CN II not tested (pt denies change in smell/taste) CN III - EOMI, no visual field deficits CN IV- EOMI CN V- normal facial sensation CN - EOMI CN VII- normal symmetric facial expressions, no facial droop CN VIII- normal hearing, finger rub heard at 4inch bilaterally CN IX, X, XII - normal tongue motion, no tongue deviation, no uvular deviation CN XI - 5/5 strength Trapezius/SCM symmetric No pronator drift, no leg drift, extremity sensation grossly intact, no dysarthria, no aphasia. Normal finger to nose, normal heel-staton. Memory recall: able to recall 3 words at 1 minute but only one word at 5 minutes. Psychiatric: Mood and Affect: Mood normal. Behavior: Behavior normal. Lines/Drains Peripheral IV Access: 02/04/210 20 gauge Right Forearm (Active) Site Assessment WNL;Dressing intact (more content not included)... Normal [facility] Care Plan Noteon 02-06-2021 Appellate Law Clerk Authentication Interface Message Text Problem: Safety: Goal: Patient will remain free of falls during hospital stay Outcome: Progressing Goal: Free from injury during hospitalization Outcome: Progressing Problem: VTE Prophylaxis: Goal: Will be free of DVT Outcome: Progressing Problem: Discharge Planning: Goal: Discharge needs of the adult patient will be met Outcome: Progressing Problem: Routine Care: Goal: Patient care will be managed and maintained throughout hospital stay per unit specific routine care procedure Outcome: Progressing Problem: Alteration in Tissue Perfusion: Cerebral: Goal: Promote adequate perfusion and limit complications for a person experiencing or at risk for inadequate cerebral perfusion Outcome: Progressing Problem: Altered Neurological Status: Goal: Optimal neurological status will be maintained or regained Outcome: Progressing Normal [facility] Consultson 02-06-2021 Appellate Law Clerk Authentication Interface Message Text NEUROLOGY INITIAL CONSULT NOTE Reason for Consult: Left parietal ICH, NCC transfer Consulted by: Tameka Nuñez, DO HPI: Sravanthi Araujo???is a 75 year old???right handed???male?w/ PMH colon cancer (s/p resection), Fuchs' dystrophy (s/p multiple corneal transplants), atrial fibrillation (s/p ablation and on Xarelto), COPD, DM type 2, depression, HLD, sleep apnea (not on CPAP) who presented as transfer from OSH after CTH showed 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 Received 2000 units of Kcentra and 10mg Vit K prior to transfer. NSGY consulted on arrival to [facility]. Reporting headache, improved slightly with acetaminophen. Denies new blurry or double vision (poor vision at baseline), numbness/tingling/wea kness or nausea / vomiting or dizziness. Admitted to NCCU for an acute L parietal???cortical ICH Pre-admit mRS: 0 He presently reports ongoing headaches but overall improving. Denies dizziness, denies vision changes. Denies shortness of breath or chest pain. MRI obtained since last visit. Review of Systems ROS as in the HPI. 10 point ROS otherwise reviewed for complaint and are negative. No past medical history on file. No past surgical history on file. Social History Socioeconomic History * Marital status: Spouse name: Not on file * Number of children: Not on file * Years of education: Not on file * Highest education level: Not on file Social Determinants of Health Financial Resource Strain: * Difficulty of Paying Living Expenses: Food Insecurity: * Worried About Running Out of Food in the Last Year: * Ran Out of Food in the Last Year: Transportation Needs: * Lack of Transportation (Medical): * Lack of Transportation (Non-Medical): Physical Activity: * Days of Exercise per Week: * Minutes of Exercise per Session: Stress: * Feeling of Stress : Social Connections: * Frequency of Communication with Friends and Family: * Frequency of Social Gatherings with Friends and Family: * Attends Religion Services: * Active Member of Clubs or Organizations: * Attends Club or Organization Meetings: * Marital Status: Intimate Partner Violence: * Fear of Current or Ex-Partner: * Emotionally Abused: * Physically Abused: * Sexually Abused: No family history on file. Vitals: 02/06/21 1159 BP: 146/79 Pulse: Resp: 18 Temp: 97.8 ???F (36.6 ???C) SpO2: 92% Intake/Output Summary (Last 24 hours) at 02/06/2021 1213 Last data filed at 02/06/2021 0542 Gross per 24 hour Intake 1311 ml Output 725 ml Net 586 ml Current Facility-Administered Medications: * labetalol (TRANDATE) injection, 10 mg, Intravenous Push, Q4H PRN, Jennifer Riggs MD * insulin regular (HumuLIN R) 100 UNIT/ML injection, 0-10 Units, Subcutaneous, 4x Daily AC AND HS, Jennifer Riggs MD * melatonin 5 mg tablet, 5 mg, Oral, At Bedtime, Jennifer Riggs MD, 5 mg at 02/05/212116 * [MAR Hold] fluticasone (FLOVENT HFA) 220 MCG/ACT inhaler, 1 Puff, Inhalation, BID RT, Jennifer Riggs MD * sucralfate (CARAFATE) 1 GM/10ML oral suspension, 1 g, Oral, 4x Daily, Jennifer Riggs MD, 1 g at 02/06/2135 * acetaminophen (TYLENOL) 325 mg tablet, 650 mg, Oral, Q6H PRN, Jennifer Riggs MD * prednisoLONE acetate (PRED FORTE) 1 % ophthalmic suspension, 1 Drop, Both Eyes, Daily, Jennifer Riggs MD, 1 Drop at 02/05/21 0913 * oxyCODONE 5 MG immediate release tablet, 5 mg, Oral, Q6H PRN, Jennifer Riggs MD, 5 mg at 02/06/21 0403 * atorvastatin (LIPITOR) 40 mg tablet, 40 mg, Oral, At Bedtime, Jennifer Riggs MD, 40 mg at 02/05/212116 * fluoxetine (PROZAC) 20 MG capsule, 40 mg, Oral, Daily, Jennifer Riggs MD, 40 mg at 02/05/21 0912 * metoprolol (LOPRESSOR) 50 MG tablet, 50 mg, Oral, 2x Daily, Jennifer Riggs MD, 50 mg at 02/06/21 0935 * [MAR Hold] ipratropium-albuterol (DUO-NEB) 0.5-2.5 (3) MG/3ML nebulizer solution, 3 mL, Nebulization, Q4H RT, Jennifer Riggs MD * [MAR Hold] albuterol (PROVENTIL) (2.5 MG/3ML) 0.083% nebulizer solution, 2.5 mg, Nebulization, Q4H RT, Jennifer Riggs MD * albuterol (PROVENTIL) (2.5 MG/3ML) 0.083% nebulizer solution, 2.5 mg, Nebulization, Q4H PRN, Jennifer Riggs MD * [MAR Hold] ipratropium (ATROVENT) 0.02 % nebulizer solution, 0.5 mg, Nebulization, Q4H RT, Jennifer Riggs MD * dextrose 50 % injection, 12.5 g, Intravenous Push, PRN OR glucagon (GLUCAGEN) 1 MG injection, 1 mg, Subcutaneous, PRN OR dextrose (GLUTOSE) 40 % gel, 15 g of glucose, Buccal, PRN OR dextrose (GLUTOSE) 40 % gel, 30 g of glucose, Buccal, PRN, Jennifer Riggs MD * senna (SENOKOT) 8.6 MG tablet, 8.6 mg, Oral, At Bedtime, Jennifer Riggs MD, 8.6 mg at 02/05/217 Exam Neurologic: Cognition Sedation: none Level of consciousness: awake, alert Affect: normal Orientation: oriented x3 Attention: normal Language: intact Visual mcdonald: full Neglect: absent Extinction: absent Righ (more content not included)... Normal [facility] GLUCOSE, FINGERSTICK-IN OFFI CEon 02-06-2021 Glucose [Mass/Vol] 109 mg/dL Normal 80-116 [facility] Comment on above: Performed By: #### [id number] ####NURSING GLUCOSE [id number] [place], [address] Glucose [Mass/Vol] 120 mg/dL High 80-116 [facility] Comment on above: Performed By: #### 8 1539 ####NURSING GLUCOSE [id number] [place], [address] Glucose [Mass/Vol] 120 mg/dL High 80-116 [facility] Comment on above: Performed By: #### 8 1393 ####NURSING GLUCOSE [id number] [place], [address] Glucose [Mass/Vol] 134 mg/dL High 80-116 [facility] Comment on above: Result Comment: No A ction Performed By: #### 8 8231 ####NURSING GLUCOSE [id number] [place], [address] MR HEAD W/+W/Oon 02-06-2021 MR HEAD W/+W/O EXAMINATION: MR HEAD W/+W/O CLINICAL HISTORY: Reason for Exam: acute L parietal cortical ICH COMPARISON: CTA head 02/05/2021. TECHNIQUE: Patient questionnaire was completed, and was reviewed by MRI personnel prior to the patient entering the scanner. Multiplanar, multisequence MR imaging of the head was performed with and without intravenous contrast. INTRA-PROCEDURE MEDS: Gadoterate Meglumine (DOTAREM) 10 MMOL/20ML solution 20 mL IV Pick the indication from the picklist on the left. Or say Blank or Generic . Control-Z is undo. Options: Headache, Mets, Sella, Seizure, MS Screen, MS Followup, IAC hearing loss, IAC facial nerve palsy, Solitary Intraaxial Mass Initial, Glioma follow-up,Tinnitus, Trigeminal, Anosmia, Meningioma Follow-up, IAC Schwannoma Follow-up, Blank, Generic. FINDINGS: Acute change: Subarachnoid hemorrhage within the left posterior parietal sulci. Chronic change: Areas of high signal intensity on T2-weighted and FLAIR imaging within the subcortical and periventricular white matter which is nonspecific and can be seen in setting chronic microangiopathy. Ventricles and Sulci: Normal caliber. Skull Base: Hypothalamic and pituitary region are grossly normal. Craniocervical junction is normal. No marrow replacement process. Extracranial structures: Partial opacification of the maxillary sinuses suggest clinical correlation for signs of infection or trauma. IMPRESSION: : Subarachnoid hemorrhage within the left posterior parietal sulci. MACRO: None Normal [facility] Progress Noteson 02-06-2021 Appellate Law Clerk Authentication Interface Message Text Attestation signed by Elizabeth Escalera DO at 02/06/2021 12:47 PM Teaching Physician Note: I saw and evaluated the patient. I personally obtained the greene and critical portions of the history and physical exam. I reviewed the resident's documentation and discussed the patient with the resident. I agree with the resident's medical decision making as documented in the resident's note. S: Mr. Araujo feels well today, denies any trouble breathing. Understands plan of care for the day. O: VS reviewed - Constitutional Alert, Awake, and No acute distress Lungs Clear to auscultation, No wheezing, and No rales Heart Regular rate and rhythm, No murmurs, and No rubs Abdomen Soft, Nondistended, and Nontender Labs and imaging reviewed A/P: 1. ICH - Stable on rpt imaging, MRI without any vascular pathology - Defer to Neuro/NSGY regarding starting home Xarelto - ECHO per Neuro to be done - Telemetry - PT/OT - Goal SBP <140 Chronic medical problems - T2DM: SSI while admitted, A1c in process - Afib: holding xarelto for #1; continue lopressor Elizabeth Escalera, [facility] Medicine Pager: [phone] INTERNAL MEDICINE TEAM 9 DAILY PROGRESS NOTE Patient: Sravanthi Araujo : 1945 Sex: male Room: C980/ Admit Date: 02/04/2021 Today's Date: 02/06/2021 Length of stay: 2 day(s) HOSPITAL COURSE: Patient is a 75yo male, transfer from [facility], w/ history of Afib (usually on xarelto), T2DM, and colon cancer (s/p resection) who was originally sent here from OSH after CT head showed acute L parietal cortical ICH in setting of taking Xarelto for Afib. Deemed stable enough to transfer from [facility] to [facility]. EVENTS IN PAST 24H: NAEON. SUBJECTIVE: Patient states that nausea and shortness of breath are better now. Denies chest pain and abdominal pain. Does have a headache that comes and goes, as well as some neck pain. OBJECTIVE: Patient Vitals for the past 24 hrs: BP Temp Temp src Pulse Resp SpO2 O2 Device O2 Flow Rate (l/min) 02/06/21 0850 162/80 97.8 ???F (36.6 ???C) Oral 61 18 97 % Nasal cannula 2 02/06/21 0403 124/80 98.1 ???F (36.7 ???C) Temporal 77 16 97 % Nasal cannula 2 02/06/21 0234 139/80 97.6 ???F (36.4 ???C) Oral 78 16 95 % Nasal cannula 2 02/06/21 0200 123/63 -- -- 66 17 95 % -- -- 02/06/21 0100 118/51 -- -- 73 15 -- -- -- 02/06/21 0002 -- 97.7 ???F (36.5 ???C) Oral -- -- -- -- -- 02/06/21 0000 121/64 -- -- 71 19 96 % Nasal cannula 2 02/05/21 2315 127/62 -- -- 72 24 95 % -- -- 02/05/21 2300 135/62 -- -- 69 19 94 % -- -- 02/05/21 2100 125/70 -- -- 70 19 -- -- -- 02/05/21 2000 145/81 97.6 ???F (36.4 ???C) Oral 77 21 -- -- -- 02/05/21 1900 123/66 -- -- 76 18 -- -- -- 02/05/21 1800 144/70 -- -- 77 24 -- -- -- 02/05/21 1700 117/68 -- -- 69 14 96 % -- -- 02/05/21 1600 113/69 97.9 ???F (36.6 ???C) Oral 68 14 95 % Nasal cannula 2 02/05/21 1500 109/63 -- -- 72 16 94 % -- -- 02/05/21 1400 120/62 -- -- 72 17 95 % -- -- 02/05/21 1300 141/73 -- -- 68 22 95 % -- -- Is/Os Baseline Weight Admission Weight Weight: 193 lb 1.6 oz (87.6 kg) Today's Weight Weight: 193 lb 1.6 oz (87.6 kg) BMI 28.52 Change in Weight: Current value is 193.1 lb (87.589 kg) on 02/04/2021 at 2327 No other value found for comparison Intake/Output Summary (Last 24 hours) at 02/06/2021 1200 Last data filed at 02/06/2021 0542 Gross per 24 hour Intake 1311 ml Output 725 ml Net 586 ml In: 2749.3 (31.4 mL/kg) [P.O.:1161; I.V.:1588.3 (0.8 mL/kg/hr)] Out: 925 (10.6 mL/kg) [Urine:925 (0.4 mL/kg/hr)] Net: 1824.3 Weight: 87.6 kg Physical Exam: Physical Exam Vitals reviewed. Constitutional: General: He is not in acute distress. Appearance: He is obese. He is not ill-appearing or toxic-appearing. Eyes: General: Scleral icterus present. Cardiovascular: Rate and Rhythm: Rhythm irregular. Heart sounds: No friction rub. No gallop. Pulmonary: Effort: Pulmonary effort is normal. No respiratory distress. Comments: Trace wheezing, diminished breath sounds Abdominal: Tenderness: There is no abdominal tenderness. Musculoskeletal: Comments: No pretibial edema Skin: Coloration: Skin is not jaundiced. Neurological: Mental Status: He is alert. Comments: Converses appropriately Psychiatric: Mood and Affect: Mood normal. Behavior: Behavior normal. Thought Content: Thought content normal. Judgment: Judgment normal. Lines/Drains Peripheral IV Access: 02/04/21 2140 20 gauge Right Forearm (Active) Site Assessment WNL;Dressing intact 02/06/21 0746 Infusion Status Port #1 Capped 02/06/21 0746 Number of days: 2 Peripheral IV Access: 02/05/21 0010 18 gauge Right Antecubital (Active) Site Assessment WNL;Dressing intact 02/06/21 0746 Infusion Status Port #1 Capped 02/06/2146 Number of days: 1 CURR (more content not included)... Normal [facility] Appellate Law Clerk Authentication Interface Message Text Attestation signed by Mary Caraballo MD at 02/06/2021 9:57 AM Addendum/ I saw and examined the patient on 02/06/21. I personally obtained the greene and critical portions of the history and physical exam face to face. I reviewed the PA/FIBER ARTIST/resident's documentation and discussed the patient with the PA/FIBER ARTIST/resident. I agree with the PA/FIBER ARTIST/resident's medical decision making as documented in the PA/FIBER ARTIST/resident's note. No surgery No neurosurgery follow-up needed Mary Caraballo MD [facility] NEUROSURGERY DAILY PROGRESS NOTE SUBJECTIVE: MRI completed, shows no underlying vascular pathology. Pt transferred to [facility]. OBJECTIVE: Vitals: Vital sign ranges over the past 24 hours (retrieved 02/06/2021 at 4:29 AM): Tmax (24 hours): 98.1 ???F (36.7 ???C) Pulse Av.4 Min: 66 Max: 104 Systolic (24hrs), Av , Min:98 , Max:154 Diastolic (24hrs), Av, Min:42, Max:81 MAP (mmHg) Av.5 mmHg Min: 64 mmHg Max: 101 mmHg Resp Av.9 Min: 14 Max: 27 SpO2 Av.2 % Min: 89 % Max: 97 % In: 2632.5 (30.1 mL/kg) [P.O.:1040; I.V.:1592.5 (0.8 mL/kg/hr)] Out: 1800 (20.6 mL/kg) [Urine:1800 (0.9 mL/kg/hr)] Net: 832.5 Weight: 87.6 kg CBC WBC RBC Hgb Hct MCV RDW Plt 02/04/212355 9.3 4.24 14.0 40.8 96 13.1 184 02/04/212119 9.5 4.38 14.2 42.4 97 12.9 193 Basic Metabolic Panel Na K Cl CO2 Gap Glu BUN Cr Ca Mg PO4 02/04/212355 1.9 02/04/212355 3.6 02/04/212355 137 3.9 99 28 14 110 11 1.04 9.3 02/04/212119 137 4.1 99 27 15 104 11 0.92 9.7 PT/INR PT aPTT INR 02/04/212355 42 02/04/212355 1.49 02/04/212119 43 02/04/212119 1.50 Physical Exam: AOx3 PERRL, EOMI FS, TM BUE 5/5 BLE 5/ SILT globally No drift A: 75 year old???male???with a PMH???Afib (on xarelto, last dose 0830 20 mg), colon CA, CHF, arthritis, asthma, T2DM who presented to [facility] as LifeFlight tx from OSH after presenting this afternoon with new onset confusion and frontal SIDDIQUI.???At OSH, CTH was performed which demonstrated small L parietal IPH. As pt on Xarelto, was given Vitamin K 10 mg and Kcentra 2000 units at OSH for AC reversal and transferred to [facility]. Pt neuro intact on presentation, small amount of blood without mass effect on initial scan. P: -Okay for q4 NCs, RNF -CTH/CTA stable, no vascular lesion identified -f/u MRI Brain w/wo contrast reviewed, demonstrates no underlying vascular lesion -Defer anticoagulation restart to neurology -No mass lesion identified, nsgy to sign off at this time. No neurosurgery follow up. Pt to follow up with neurology. - DVT prophylaxis per neurology / primary team Flory Jacobs PA-C Neurosurgery Service Pager [phone] Normal [facility] Appellate Law Clerk Authentication Interface Message Text 02/06/21 8238 Admit Note (Completed by Receiving Unit) Arrival Time: 0236 Arrived to: 9C Arrived from: 3B Mode of Transport Wheelchair Transported by: CCP Transported with: Oxygen SBAR Report Received From: FARIHA Viramontes Team 9 (Jennifer) made aware of pt arrival. Pt transported w/ O2 NC, currently on 2L Normal [facility] BASIC METABOLIC PANELon 09-0 -2020 Anion gap [Moles/Vol] 14 mmol/L High 5-13 [facility] Comment on above: Performed By: #### 8 2948 #### NURSING GLUCOSE PROGRAM [address] [place], [address] Calcium [Mass/Vol] 9.3 mg/dL Normal 8.4-10.4 [facility] Comment on above: Performed By: #### 8 2948 #### NURSING GLUCOSE PROGRAM [address] [place], [address] Chloride [Moles/Vol] 99 mmol/L Normal 97-111 [facility] Comment on above: Performed By: #### 8 2948 #### NURSING GLUCOSE PROGRAM [address] [place], [address] CO2 [Moles/Vol] 28 mmol/L Normal 21-30 The [facility] Comment on above: Performed By: #### 8 9162 #### NURSING GLUCOSE PROGRAM [address] [place], [address] Creatinine [Mass/Vol] 1.04 mg/dL Normal 0.80-1.30 [facility] Comment on above: Performed By: #### 8 2012 #### NURSING GLUCOSE PROGRAM [address] [place], [address] ESTIMATED GFR (CKD-EPI) 70 mL/min/1.73sqm Normal >=60 [facility] Comment on above: Performed By: #### 8 0642 #### NURSING GLUCOSE PROGRAM [address] [place], [address] Glucose [Mass/Vol] 110 mg/dL Normal 80-116 [facility] Comment on above: Performed By: #### 8 2838 #### NURSING GLUCOSE PROGRAM [address] [place], [address] Potassium [Moles/Vol] 3.9 mmol/L Normal 3.3-5.3 [facility] Comment on above: Performed By: #### 8 7594 #### NURSING GLUCOSE PROGRAM [address] [place], [address] Sodium [Moles/Vol] 137 mmol/L Normal 135-148 [facility] Comment on above: Performed By: #### 8 2948 #### NURSING GLUCOSE PROGRAM [address] [place], [address] Urea nitrogen [Mass/Vol] 11 mg/dL Normal 8-22 [facility] Comment on above: Performed By: #### 8 2948 #### NURSING GLUCOSE PROGRAM [address] [place], [address] COMPLETE BLOOD COUNTon 02-05 Erythrocyte distribution width (RBC) [Ratio] 13.1 % Normal 11.5-14.5 [facility] Comment on above: Performed By: #### 8 2948 #### NURSING GLUCOSE PROGRAM [address] [place], [address] Hematocrit (Bld) [Volume fraction] 40.8 % Low 41.0-53.0 [facility] Comment on above: Performed By: #### 8 2948 #### NURSING GLUCOSE PROGRAM [address] [place], [address] Hemoglobin (Bld) [Mass/Vol] 14.0 g/dL Normal 13.9-16.3 [facility] Comment on above: Performed By: #### 8 2948 #### NURSING GLUCOSE PROGRAM [address] [place], [address] MCH (RBC) [Entitic mass] 33.1 pg Normal 26.0-34.0 [facility] Comment on above: Performed By: #### 8 9708 #### NURSING GLUCOSE PROGRAM [address] [place], [address] MCHC (RBC) [Mass/Vol] 34.4 g/dL Normal 32.0-35.9 [facility] Comment on above: Performed By: #### 8 2948 #### NURSING GLUCOSE PROGRAM [address] [place], [address] MCV (RBC) [Entitic vol] 96 fL Normal 80-100 [facility] Comment on above: Performed By: #### 8 2948 #### NURSING GLUCOSE PROGRAM [address] [place], [address] Platelet mean volume (Bld) [Entitic vol] 8.1 fL Normal 7.5-11.2 The [facility] Comment on above: Performed By: #### 8 6368 #### NURSING GLUCOSE PROGRAM [address] [place], [address] Platelets (Bld) [#/Vol] 184 10*3/uL Normal 150-400 [facility] Comment on above: Performed By: #### 8 2948 #### NURSING GLUCOSE PROGRAM [address] [place], [address] RBC (Bld) [#/Vol] 4.24 10*6/uL Low 4.50-5.90 The [facility] Comment on above: Performed By: #### 8 2948 #### NURSING GLUCOSE PROGRAM [address] [place], [address] WBC (Bld) [#/Vol] 9.3 10*3/uL Normal 4.5-11.5 The [facility] Comment on above: Performed By: #### 8 2948 #### NURSING GLUCOSE PROGRAM [address] [place], [address] CTA HEAD/NECK W/on 1 CTA HEAD/NECK W/ EXAMINATION: CTA HEAD/NECK W/ CLINICAL HISTORY: Reason for Exam: ICH of unclear etiology COMPARISON: None TECHNIQUE: CT angiogram of the head and neck were obtained with intravenous contrast. Thin isotropic axial imaging was obtained through the brain and neck from the vertex to the thoracic inlet during rapid IV contrast administration for evaluation of the vessels. Multiplanar and 3D maximum intensity projection reformulations were created from the raw CT data which were interpreted in conjunction with the axial images to render the findings listed below. Before infusion of intravenous contrast, radiology personnel investigated the possibility of an allergic history and any history of reaction to iodinated contrast material. Contrast Protocol: Omnipaque 350 [>or =100lb] 50 ml [<100 lb] 1 ml per 1 lb. INTRA-PROCEDURE MEDS: iohexol (OMNIPAQUE) 350 MG/ML injection 50 mL IV FINDINGS: CT BRAIN There is a small amount of subarachnoid hemorrhage in a left posterior parietal sulcus. Mild generalized brain parenchymal volume loss with normal caliber ventricles. Scattered patchy foci of white matter hypoattenuation, most likely mild chronic microvascular angiopathy. The skull, included paranasal sinuses and orbits are within normal limits. CT ARTERIOGRAM Extracranial Circulation: Aortic Arch: No significant stenosis in the proximal brachiocephalic vessels. Carotid Arteries Right Common Carotid: No significant stenosis. Right Internal Carotid: Mild atherosclerotic plaque in the proximal ICA without significant stenosis. No dissection. Left Common Carotid: No significant stenosis. Left Internal Carotid: Mild atherosclerotic plaque in the proximal ICA without significant stenosis. No dissection. Vertebral Arteries: Patent with no stenosis or dissection. Intracranial Circulation Anterior Circulation: The internal carotid arteries are patent with atherosclerotic plaque in the carotid siphons causing mild ICA stenosis. ACAs and MCAs are patent. No vessel cutoff, aneurysm or focal hemodynamically significant stenosis. Vertebrobasilar Circulation: Intracranial vertebral arteries, PICA/AICA branches, basilar artery, SCAs and senior gis analyst are patent. No vessel cutoff, aneurysm or focal hemodynamically significant stenosis. Other: Emphysematous changes are present in the lung apices and there are degenerative changes in the cervical spine. No evidence of a soft tissue mass or lymphadenopathy in the neck. IMPRESSION: No significant change in subarachnoid hemorrhage in a left posterior parietal sulcus. No significant stenosis, dissection, or aneurysm in the intracranial or extracranial circulation. MACRO: None Normal [facility] Care Plan Noteon 02-05-2021 Appellate Law Clerk Authentication Interface Message Text Problem: Safety: Goal: Patient will remain free of falls during hospital stay Outcome: Progressing Note: Pt. Will remain free of falls through unit safety protocols and use of call light, bed alarm, frequent rounding, and non-slip socks. Goal: Free from injury during hospitalization Outcome: Progressing Note: Safety maintained through NCCU protocols. Problem: VTE Prophylaxis: Goal: Will be free of DVT Outcome: Progressing Note: Pt. Will remain free of DVT through use of ICDs per order. Problem: Discharge Planning: Goal: Discharge needs of the adult patient will be met Outcome: Progressing Note: Discharge needs continue to be met. Problem: Routine Care: Goal: Patient care will be managed and maintained throughout hospital stay per unit specific routine care procedure Outcome: Progressing Note: Pt. Care will be managed and maintained throughout hospital stay per NCCU routine care procedures. Problem: Alteration in Tissue Perfusion: Cerebral: Goal: Promote adequate perfusion and limit complications for a person experiencing or at risk for inadequate cerebral perfusion Outcome: Progressing Note: Perfusion will be monitored and maintained through Q1 neuro exams. Problem: Altered Neurological Status: Goal: Optimal neurological status will be maintained or regained Outcome: Progressing Note: Neurological status will be maintained through ordered assessments. Normal [facility] Appellate Law Clerk Authentication Interface Message Text Problem: Safety: Goal: Patient will remain free of falls during hospital stay 02/04/20212338 by Sravanthi Chowdhury RN Outcome: Progressing Note: Patient admitted from ED. NCCU protocols initiated. Goal: Free from injury during hospitalization 02/04/20212338 by Sravanthi Chowdhury RN Outcome: Progressing Note: Patient admitted from ED. NCCU protocols initiated. Problem: VTE Prophylaxis: Goal: Will be free of DVT 02/04/20212338 by Sravanthi Chowdhury RN Outcome: Progressing Note: Patient admitted from ED. NCCU protocols initiated. Problem: Discharge Planning: Goal: Discharge needs of the adult patient will be met 02/04/20212338 by Sravanthi Chowdhury RN Outcome: Progressing Note: Patient admitted from ED. NCCU protocols initiated. Problem: Routine Care: Goal: Patient care will be managed and maintained throughout hospital stay per unit specific routine care procedure 02/04/20212338 by Sravanthi Chowdhury RN Outcome: Progressing Note: Patient admitted from ED. NCCU protocols initiated. Problem: Alteration in Tissue Perfusion: Cerebral: Goal: Promote adequate perfusion and limit complications for a person experiencing or at risk for inadequate cerebral perfusion 02/04/20212338 by Sravanthi Chowdhury RN Outcome: Progressing Note: Patient admitted from ED. NCCU protocols initiated. 02/04/20212337 by Sravanthi Chowdhury RN Problem: Altered Neurological Status: Goal: Optimal neurological status will be maintained or regained 02/04/20212338 by Sravanthi Chowdhury RN Outcome: Progressing Note: Patient admitted from ED. NCCU protocols initiated. Normal [facility] 02-05-2021 Appellate Law Clerk Authentication Interface Message Text Attestation signed by Mary Caraballo MD at 02/05/2021 12:22 PM Addendum/ I saw and examined the patient on 02/05/21. I personally obtained the greene and critical portions of the history and physical exam face to face. I reviewed the PA/FIBER ARTIST/resident's documentation and discussed the patient with the PA/FIBER ARTIST/resident. I agree with the PA/FIBER ARTIST/resident's medical decision making as documented in the PA/FIBER ARTIST/resident's note. 75 year old male, presents with headache and confusion. Grossly intact on exam Head CT with small intraparenchymal hemorrhage in the left parietal lobe with small subarachnoid hemorrhage in the post-central sulcus. CTA demonstrates stability and no vascular lesion including sinus thrombosis. MRI brain w/wo contrast to evaluate for possible malignancy. No surgery planned at this time. Mary Caraballo MD NEUROSURGERY CONSULT Patient Name: Sravanthi Araujo PRIMARY CARE PHYSICIAN: No primary care provider on file. CONSULTED BY: ED CONSULTED FOR: ICH CHIEF COMPLAINT: SIDDIQUI, confusion HPI: Patient is a 75 year old male with a PMH Afib (on xarelto, last dose 0830 20 mg), colon CA, CHF, arthritis, asthma, T2DM who presented to [facility] as LifeFlight tx from OSH after presenting this afternoon with new onset confusion and frontal SIDDIQUI, which began 02/04 around 1200, while pt was at the store talking to a friend. Pt denies any recent trauma or any inciting incident. At OSH, presenting BP was 149/96. CTH was performed which demonstrated small L parietal IPH. As pt on Xarelto, was given Vitamin K 10 mg and Kcentra 2000 units at OSH for AC reversal and transferred to [facility]. In the ED, pt endorses SIDDIQUI, denies any additional symptoms at this time. PMH: Afib, colon CA, CHF, arthritis, asthma, T2DM PSH: B/l corneal transplants, b/l knee replacement SH: Denies tobacco, EtOH, or illicit drug use FH: Family history reviewed and is not pertinent to current hospital issue ASA/PLAVIX/COUMADIN: Xarelto PAST MEDICAL HISTORY: Afib, colon CA, CHF, arthritis, asthma, T2DM PAST SURGICAL HISTORY: B/l corneal transplants, b/l knee replacement FAMILY HISTORY: Reviewed, not pertinent to this case SOCIAL HISTORY: Social History Occupational History * Not on file Tobacco Use * Smoking status: Not on file Substance and Sexual Activity * Alcohol use: Not on file * Drug use: Not on file * Sexual activity: Not on file MEDICATIONS: * vitamin K 10 mg Daily * docusate sodium 100 mg 2x Daily * senna 8.6 mg At Bedtime * insulin regular 0-10 Units q6h * nicardipine 2.5 mg/hr (02/05/21 0000) * sodium chloride 75 mL/hr at 02/05/21 0000 * dextrose 12.5 g PRN Or * glucagon 1 mg PRN Or * dextrose 15 g of glucose PRN Or * dextrose 30 g of glucose PRN ALLERGIES: Not on File COMPLETE REVIEW OF SYSTEMS: ROS 05/15 systems negative other than above LABS: CBC/PT/INR WBC RBC Hgb Hct MCV RDW Plt PT aPTT INR 02/04/21 2356 42 02/04/21 2356 1.49 02/04/21 2356 9.3 4.24 14.0 40.8 96 13.1 184 02/04/21 2120 43 02/04/21 2120 1.50 02/04/210 9.5 4.38 14.2 42.4 97 12.9 193 WBC/Diff None Basic Metabolic Panel Na K Cl CO2 Gap Glu BUN Cr Ca Mg PO4 02/04/212119 137 4.1 99 27 15 104 11 0.92 9.7 Hepatic/Biliary/Pancr eas None Cardiac None Arterial Blood Gases None Fingerstick Glucose Glucose 02/04/21 2339 110 CSF Culture None Urine Culture None Pyogen Culture None Blood Culture None Sputum Culture None PHYSICAL EXAM: AOx3, NAD Speech intact, conversational Naming 3/3, fund of knowledge full R pupil pinpoint (baseline, pt with 2 prior corneal transplants), b/l reactive EOMI CNI Shoulder shrug strong No drift Grossly full strength x 4 Sensation grossly intact Intracranial Hemorrhage Score GCS: 3-4 5-12 13-15 2 pts 1 pt 0 pts 0 ICH Volume ? 30cm <30 cm 1 pt 0 pts 0 IVH Yes No 1 pt 0 pts 0 Location Infratentorial Supratentorial 1 pt 0 pts 0 Age ? 80 yrs <80 1pt 0 pt 0 Total = 0 DATA: Radiology: 02/04/2021 1830: CTH at OSH - small L parietal subcortical hyperdensity consistent with acute blood, without mass effect ASSESSMENT: 75 year old male with a PMH Afib (on xarelto, last dose 0830 20 mg), colon CA, CHF, arthritis, asthma, T2DM who presented to [facility] as [facility] tx from OSH after presenting this afternoon with new onset confusion and frontal SIDDIQUI. At OSH, CTH was performed which demonstrated small L parietal IPH. As pt on Xarelto, was given Vitamin K 10 mg and Kcentra 2000 units at OSH for AC reversal and transferred to [facility]. Pt neuro intact on presentation, small amount of blood without mass effect on initial scan. RECOMMENDATIONS: -admit to NCCU -q 1 neurochecks -CTA head/neck -repeat CTH 6 hours from (more content not included)... Normal [facility] Provider Noteson 02-06-20 21 Appellate Law Clerk Authentication Interface Message Text Second Attg Signout Note: Admit NCC// Left parietal ICH. PCC and vit K there. On xarelto. Intermittently needed cardene. NSGY saw. No andexa. Doesn't think needs to be reversed. Likely to get stability scan here. GCS 15. Yan Morillo D.O., FACEP Attending Physician Department of Emergency Medicine [facility] Normal [facility] FULL LIPID PROFILEon 021 Cholesterol [Mass/Vol] 91 mg/dL Normal <181 [facility] Comment on above: Performed By: #### 8 [id number] #### NURSING GLUCOSE PROGRAM [address] [place], [address] Cholesterol in LDL [Mass/Vol] 44 mg/dL Normal <111 [facility] Comment on above: Performed By: #### 8 2565 #### NURSING GLUCOSE PROGRAM [address] [place], [address] Cholesterol.total/Cho lesterol in HDL [Mass ratio] 2.46 {ratio} Normal [facility] Comment on above: Performed By: #### 8 5454 #### NURSING GLUCOSE PROGRAM [address] [place], [address] HDL CHOL 37 mg/dL Low >44 [facility] Comment on above: Performed By: #### 8 2948 #### NURSING GLUCOSE PROGRAM [address] [place], [address] LDL/HDL 1.19 Normal <3.57 [facility] Comment on above: Performed By: #### 8 2948 #### NURSING GLUCOSE PROGRAM [address] [place], [address] NON-HDL CHOLESTEROL 54 mg/dL Normal <130 [facility] Comment on above: Performed By: #### 8 2948 #### NURSING GLUCOSE PROGRAM [address] [place], [address] Triglyceride [Mass/Vol] 76 mg/dL Normal <151 [facility] Comment on above: Performed By: #### 8 2948 #### NURSING GLUCOSE PROGRAM [address] [place], [address] GLUCOSE, FINGERSTICK-IN OFFI CEon 02-05-2021 Glucose [Mass/Vol] 129 mg/dL High 80-116 [facility] Comment on above: Performed By: #### 8 2948 #### NURSING GLUCOSE PROGRAM [address] [place], [address] Glucose [Mass/Vol] 119 mg/dL High 80-116 [facility] Comment on above: Performed By: #### 8 2948 ####NURSING GLUCOSE [id number] [place], [address] Glucose [Mass/Vol] 174 mg/dL High 80-116 [facility] Comment on above: Performed By: #### 8 2948 #### NURSING GLUCOSE PROGRAM [address] [place], [address] Glucose [Mass/Vol] 155 mg/dL High 80-116 [facility] Comment on above: Result Comment: Diomedes kowalski RN, APN, MD Performed By: #### 8 2948 #### NURSING GLUCOSE PROGRAM [address] [place], [address] Glucose [Mass/Vol] 110 mg/dL Normal 80-116 [facility] Comment on above: Performed By: #### 8 2948 #### NURSING GLUCOSE PROGRAM [address] [place], [address] H AND Bean 02-05-2021 Appellate Law Clerk Authentication Interface Message Text NEUROCRITICAL CARE UNIT ADMISSION H AND P Chief Complaint: ICH HPI: Sravanthi Araujo is a 75 year old right handed male w/ PMH colon cancer (s/p resection), Fuchs' dystrophy (s/p multiple corneal transplants), atrial fibrillation (s/p ablation and on Xarelto), COPD, DM type 2, depression, HLD, sleep apnea (not on CPAP) who presents as transfer from OSH after CTH showed acute L parietal cortical ICH in the setting of AC w/ Xarelto. States he was at the grocery store earlier today around noon on 02/04/21, and became disoriented / confused while talking to a friend. He then couldn't find where he parked his truck. Also noticed he had a bad headache. Reports he has been in his usual state of health. No recent illnesses. Several weeks ago, switched from celexa toprozac; has felt fatigue since. Received 2000 units of Kcentra and 10mg Vit K prior to transfer. Nicardipine infusion used intermittently. First recorded BP at OSH 149/96. NSGY consulted on arrival to [facility]. Reporting headache, improved slightly with acetaminophen. Denies new blurry or double vision (poor vision at baseline), numbness/tingling/wea kness or nausea / vomiting or dizziness. Of note, has cane and walker to use after bilateral TKR but does not use routinely. Review of Systems: Constitutional: Per HPI Eyes: Per HPI Ears/ Nose/ Mouth/ Throat: Negative Respiratory: Denies SOB Cardiovascular: Denies chest pain Gastrointestinal: Per HPI Genitourinary: Negative Musculoskeletal: Per HPI Neurologic: Per HPI Psychiatric: Per HPI Integumentary (skin/breast): Negative Endocrine: Per HPI Rheumatologic: Not assessed Allergic/ Immunologic: Not assessed Significant positives: See above Medical History * Colon cancer * Fuchs' dystrophy * CHF (congestive heart failure) ([facility]) * Chronic atrial fibrillation * COPD (chronic obstructive pulmonary disease) ([facility]) * Depression * Diabetes mellitus type 2 * Heart disease * HLD (hyperlipidemia) * Sleep apnea (does not wear CPAP) Surgical History - Bilateral TKR - Colon resection for cancer - Corneal transplant - Ablation - Left thyroid lobectomy Social Hx: -Former smoker - Current medical marijuana use. 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 Family Hx * Heart disease Mother * Diabetes Mother * Lung disease Mother * Seizures Mother * Cancer Father * Prostate cancer Father * Diabetes Sister Vital sign ranges over the past 24 hours (retrieved 02/05/2021 at 1:35 AM): Tmax (24 hours): 98.7 ???F (37.1 ???C) Pulse Av.4 Min: 70 Max: 89 Systolic (24hrs), Av , Min:113 , Max:152 Diastolic (24hrs), Av, Min:51, Max:84 MAP (mmHg) Av mmHg Min: 70 mmHg Max: 105 mmHg Resp Av.5 Min: 18 Max: 30 SpO2 Av.4 % Min: 91 % Max: 97 % Intake/Output Summary (Last 24 hours) at 02/05/2021 0135 Last data filed at 02/05/2021 0000 Gross per 24 hour Intake 4.17 ml Output 0 ml Net 4.17 ml Current Facility-Administered Medications: * niCARdipine 40 mg in iso-osmotic sodium chloride 200 mL (CARDENE) iv infusion, 2.5-15 mg/hr, Intravenous, Continuous, Mary Briseno APRN-CNP, Last Rate: 12.5 mL/hr at 02/05/21 0000, 2.5 mg/hr at 02/05/21 0000 * dextrose 50 % injection, 12.5 g, Intravenous Push, PRN OR glucagon (GLUCAGEN) 1 MG injection, 1 mg, Subcutaneous, PRN OR dextrose (GLUTOSE) 40 % gel, 15 g of glucose, Buccal, PRN OR dextrose (GLUTOSE) 40 % gel, 30 g of glucose, Buccal, PRN, Mary Briseno APRN-CNP * vitamin K (PHYTONADIONE) 1 mg/mL oral suspension, 10 mg, Oral, Daily, Mary Briseno APRN-CNP * sodium chloride 0.9 % iv infusion, , Intravenous, Continuous, Mary Briseno APRN-CNP, Last Rate: 75 mL/hr at 02/05/21 0000, Rate Verify at 02/05/21 0000 * docusate sodium (COLACE) 100 MG capsule, 100 mg, Oral, 2x Daily, Mary Briseno APRN-CNP * senna (SENOKOT) 8.6 MG tablet, 8.6 mg, Oral, At Bedtime, Mary Briseno APRN-CNP * insulin regular (HumuLIN R) 100 UNIT/ML injection, 0-10 Units, Subcutaneous, q6h, Mary Briseno APRN-CNP Exam Neurologic: Cognition Sedation: none Level of consciousness: awake, alert Affect: normal Orientation: oriented to self, location, year, situation Attention: normal Language: intact fluency, comprehension, repetition, naming Fund of knowledge: appropriate Visual mcdonald: full (poor vision at baseline) Neglect: absent Extinction: absent Right-left confusion: absent Cranial Nerves Vision/fundoscopic: n/a Pupils: irregular; post surgical OD, 3 mm OS; reactive to light B Spontaneous gaze: no deviation Extraocular movements: intact at 6 positions of gaze Facial sensation: intact Facial motor function: symmetric forehead wrinkling and smile Hearing: intact to conversation Palate elevation: symmetric Dysarthria: absent Tongue: midline; able to move fully to R and L Motor Tone: normal Drift: absent Sp (more content not included)... Normal [facility] HEMOGLOBIN A1Con 02-05-2021 Glucose [Mass/Vol] 128 mg/dL Normal [facility] Comment on above: Order Comment: HbA1c of 5.7-6.4% have increased risk for diabetes and CV(Source :ADA 2014 Standard of Medical Care in Diabetes) Performed By: #### H B A1C ####[facility] PATHOLOGY LABORATORY [address] [place] [address], [address] HbA1c (Bld) [Mass fraction] 6.1 % High 4.0-5.6 [facility] Comment on above: Order Comment: HbA1c of 5.7-6.4% have increased risk for diabetes and CV(Source :ADA 2014 Standard of Medical Care in Diabetes) Performed By: #### H B A1C ####[facility] PATHOLOGY LABORATORY [address] [place] [address], [address] HEPATIC FUNCTION PANELon Albumin [Mass/Vol] 4.1 g/dL Normal 3.4-5.1 The [facility] Comment on above: Performed By: #### 8 2948 #### [facility] GLUCOSE PROGRAM [address] [place] [address], [address] ALK 52 IU/L Normal 40-200 The [facility] Comment on above: Performed By: #### 8 2948 #### NURSING GLUCOSE PROGRAM [address] [place], [address] ALT [Catalytic activity/Vol] 19 U/L Normal 7-40 The [facility] Comment on above: Performed By: #### 8 2948 #### NURSING GLUCOSE PROGRAM [address] [place], [address] AST [Catalytic activity/Vol] 20 U/L Normal 7-40 The [facility] Comment on above: Performed By: #### 8 2948 #### NURSING GLUCOSE PROGRAM [address] [place], [address] Bilirubin [Mass/Vol] 1.6 mg/dL High 0.1-1.5 The [facility] Comment on above: Performed By: #### 8 2948 #### NURSING GLUCOSE PROGRAM [address] [place], [address] Bilirubin.direct [Mass/Vol] 0.30 mg/dL Normal 0.10-0.30 The [facility] Comment on above: Performed By: #### 8 2948 #### NURSING GLUCOSE PROGRAM [address] [place], [address] Protein [Mass/Vol] 6.0 g/dL Normal 5.7-8.1 The [facility] Comment on above: Performed By: #### 8 2948 #### NURSING GLUCOSE PROGRAM [address] [place], [address] MAGNESIUMon 02-05-2021 Magnesium [Mass/Vol] 1.9 mg/dL Normal 1.6-2.8 The [facility] Comment on above: Performed By: #### C H8, MG, HEPATIC, HDL, PHOS ####[facility] PATHOLOGY [id number] [place], [address] PARTIAL THROMBOPLASTIN TIMEo n 02-05-2021 aPTT Coag (Bld) [Time] 42 s High 25-37 The [facility] Comment on above: Performed By: #### 8 2948 #### NURSING GLUCOSE PROGRAM [address] [place], [address] PHOSPHORUSon 02-05-2021 Phosphate [Mass/Vol] 3.6 mg/dL Normal 2.3-4.2 [facility] Comment on above: Performed By: #### 8 2948 #### NURSING GLUCOSE PROGRAM [address] [place], [address] PROTHROMBIN TIME AND INRon 0 02-05-2021 INR Coag (PPP) [Relative time] 1.49 {INR} High 0.90-1.10 The [facility] Comment on above: Performed By: #### 8 2948 #### NURSING GLUCOSE PROGRAM [address] [place], [address] PT Coag (PPP) [Time] 16.8 s High 9.7-12.9 [facility] Comment on above: Performed By: #### 8 2948 #### NURSING GLUCOSE PROGRAM [address] [place], [address] Progress Noteson 02-05-2021 Appellate Law Clerk Authentication Interface Message Text NEUROCRITICAL CARE SUBSEQUENT VISIT HPI: Sravanthi Araujo is a 75 year old right handed male w/ PMH colon cancer (s/p resection), Fuchs' dystrophy (s/p multiple corneal transplants), atrial fibrillation (s/p ablation and on Xarelto), COPD, DM type 2, depression, HLD, sleep apnea (not on CPAP) who presents as transfer from OSH after CTH showed acute L parietal cortical ICH in the setting of AC w/ Xarelto. States he was at the grocery store earlier today around noon on 02/04/21, and became disoriented / confused while talking to a friend. He then couldn't find where he parked his truck. Also noticed he had a bad headache. Reports he has been in his usual state of health. No recent illnesses. Several weeks ago, switched from celexa toprozac; has felt fatigue since. Received 2000 units of Kcentra and 10mg Vit K prior to transfer. Nicardipine infusion used intermittently. First recorded BP at OSH 149/96. NSGY consulted on arrival to [facility]. Reporting headache, improved slightly with acetaminophen. Denies new blurry or double vision (poor vision at baseline), numbness/tingling/wea kness or nausea / vomiting or dizziness. Events since prior visit: Overnight admission for an acute L parietal cortical ICH Vital sign ranges over the past 24 hours (retrieved 02/05/2021 at 6:40 AM): Tmax (24 hours): 98.7 ???F (37.1 ???C) Pulse Av.2 Min: 70 Max: 104 Systolic (24hrs), Av , Min:101 , Max:159 Diastolic (24hrs), Av, Min:47, Max:100 MAP (mmHg) Av.5 mmHg Min: 70 mmHg Max: 121 mmHg Resp Av.2 Min: 13 Max: 30 SpO2 Av.1 % Min: 89 % Max: 97 % Intake/Output Summary (Last 24 hours) at 02/05/2021 0640 Last data filed at 02/05/2021 0600 Gross per 24 hour Intake 224.17 ml Output 1250 ml Net -1025.83 ml Current Facility-Administered Medications: * [MAR Hold] fluticasone (FLOVENT HFA) 220 MCG/ACT inhaler, 1 Puff, Inhalation, BID RT, Mary Briseno APRN-CNP * sucralfate (CARAFATE) 1 GM/10ML oral suspension, 1 g, Oral, 4x Daily, Mary Briseno APRN-CNP * acetaminophen (TYLENOL) 325 mg tablet, 650 mg, Oral, Q6H PRN, Mary Briseno APRN-CNP * prednisoLONE acetate (PRED FORTE) 1 % ophthalmic suspension, 1 Drop, Both Eyes, Daily, Mary Briseno APRN-CNP * oxyCODONE 5 MG immediate release tablet, 5 mg, Oral, Q6H PRN, Mary Briseno APRN-CNP, 5 mg at 02/05/21 0245 * atorvastatin (LIPITOR) 40 mg tablet, 40 mg, Oral, At Bedtime, Mary Briseno APRN-CNP * fluoxetine (PROZAC) 20 MG capsule, 40 mg, Oral, Daily, Mary Briseno APRN-CNP * metoprolol (LOPRESSOR) 50 MG tablet, 50 mg, Oral, 2x Daily, Mary Briseno APRN-CNP * [MAR Hold] ipratropium-albuterol (DUO-NEB) 0.5-2.5 (3) MG/3ML nebulizer solution, 3 mL, Nebulization, Q4H RT, Mary Briseno APRN-CNP * [MAR Hold] albuterol (PROVENTIL) (2.5 MG/3ML) 0.083% nebulizer solution, 2.5 mg, Nebulization, Q4H RT, Mary Briseno APRN-CNP * albuterol (PROVENTIL) (2.5 MG/3ML) 0.083% nebulizer solution, 2.5 mg, Nebulization, Q4H PRN, Mary Briseno APRN-CNP * [MAR Hold] ipratropium (ATROVENT) 0.02 % nebulizer solution, 0.5 mg, Nebulization, Q4H RT, Mary Briseno APRN-CNP * niCARdipine 40 mg in iso-osmotic sodium chloride 200 mL (CARDENE) iv infusion, 2.5-15 mg/hr, Intravenous, Continuous, Mary Briseno APRN-CNP, Last Rate: 25 mL/hr at 02/05/21 0139, 5 mg/hr at 02/05/21 0139 * dextrose 50 % injection, 12.5 g, Intravenous Push, PRN OR glucagon (GLUCAGEN) 1 MG injection, 1 mg, Subcutaneous, PRN OR dextrose (GLUTOSE) 40 % gel, 15 g of glucose, Buccal, PRN OR dextrose (GLUTOSE) 40 % gel, 30 g of glucose, Buccal, PRN, Mary Briseno APRN-CNP * vitamin K (PHYTONADIONE) 1 mg/mL oral suspension, 10 mg, Oral, Daily, Mary Briseno APRN-CNP * sodium chloride 0.9 % iv infusion, , Intravenous, Continuous, Mary Briseno APRN-CNP, Last Rate: 75 mL/hr at 02/05/21 0000, Rate Verify at 02/05/21 0000 * docusate sodium (COLACE) 100 MG capsule, 100 mg, Oral, 2x Daily, Mary Briseno APRN-CNP, 100 mg at 02/05/21 0245 * senna (SENOKOT) 8.6 MG tablet, 8.6 mg, Oral, At Bedtime, Mary Briseno APRN-CNP, 8.6 mg at 02/05/21 0245 * insulin regular (HumuLIN R) 100 UNIT/ML injection, 0-10 Units, Subcutaneous, q6h, Mary Briseno APRN-AMANDA Exam Neurologic: Cognition Sedation: none Level of consciousness: awake, alert Affect: normal Orientation: oriented x3 Attention: normal Language: intact Visual mcdonald: full Neglect: absent Extinction: absent Right-left confusion: absent Cranial Nerves Pupils: 3 mm OD, 3 mm OS; reactive to light bilaterally Spontaneous gaze: no deviation Extraocular movements: intact Facial sensation: intact Facial motor function: symmetric forehead wrinkling and smile Dysarthria: absent Tongue: midline; able to move fully to R and L Shoulder shrug: normal Motor Tone: normal Drift: absent Spontaneous abnormal movements: absent RUE antigravity, full streng (more content not included)... Normal [facility] TOXICOLOGY SCREEN, UNCONFIRM EDon 02-05-2021 AMPH Negative Normal Negative [facility] Comment on above: Order Comment: This toxicology screen provides unconfirmed analytical results suitable for clinical management. Results are reported as positive (at or above the cutoff) or negative (below the cutoff). Amphetamines 1000 ng/mL Barbiturates 200 ng/mL Methadone 300 ng/mL Opiates 300 ng/mL Oxycodone 100 ng/mL Fentanyl 1 ng/mL Hydrocodone 100 ng/mL Benzodiazepines 200 ng/mL Cocaine Metabolite 300 ng/mL PCP 25 ng/mL THC 50 ng/mL Norbuprenorphine 10 ng/mL Alcohol 10 mg/dLPositive qualitative result does not indicate or measure intoxication. For toxicology consultation please call the laboratory at [phone]. Performed By: #### T [facility] ####[facility] PATHOLOGY [id number] [place], [address] BARBIT Negative Normal Negative [facility] Comment on above: Order Comment: This toxicology screen provides unconfirmed analytical results suitable for clinical management. Results are reported as positive (at or above the cutoff) or negative (below the cutoff). Amphetamines 1000 ng/mL Barbiturates 200 ng/mL Methadone 300 ng/mL Opiates 300 ng/mL Oxycodone 100 ng/mL Fentanyl 1 ng/mL Hydrocodone 100 ng/mL Benzodiazepines 200 ng/mL Cocaine Metabolite 300 ng/mL PCP 25 ng/mL THC 50 ng/mL Norbuprenorphine 10 ng/mL Alcohol 10 mg/dLPositive qualitative result does not indicate or measure intoxication. For toxicology consultation please call the laboratory at [phone]. Performed By: #### T OX SC ####[facility] PATHOLOGY [id number] [place], [place], BENZO Negative Normal Negative [facility] Comment on above: Order Comment: This toxicology screen provides unconfirmed analytical results suitable for clinical management. Results are reported as positive (at or above the cutoff) or negative (below the cutoff). Amphetamines 1000 ng/mL Barbiturates 200 ng/mL Methadone 300 ng/mL Opiates 300 ng/mL Oxycodone 100 ng/mL Fentanyl 1 ng/mL Hydrocodone 100 ng/mL Benzodiazepines 200 ng/mL Cocaine Metabolite 300 ng/mL PCP 25 ng/mL THC 50 ng/mL Norbuprenorphine 10 ng/mL Alcohol 10 mg/dLPositive qualitative result does not indicate or measure intoxication. For toxicology consultation please call the laboratory at [phone]. Performed By: #### T OX SC ####[facility] PATHOLOGY [id number] [place] [address], COCAINE CL Negative Normal Negative [facility] Comment on above: Order Comment: This toxicology screen provides unconfirmed analytical results suitable for clinical management. Results are reported as positive (at or above the cutoff) or negative (below the cutoff). Amphetamines 1000 ng/mL Barbiturates 200 ng/mL Methadone 300 ng/mL Opiates 300 ng/mL Oxycodone 100 ng/mL Fentanyl 1 ng/mL Hydrocodone 100 ng/mL Benzodiazepines 200 ng/mL Cocaine Metabolite 300 ng/mL PCP 25 ng/mL THC 50 ng/mL Norbuprenorphine 10 ng/mL Alcohol 10 mg/dLPositive qualitative result does not indicate or measure intoxication. For toxicology consultation please call the laboratory at [phone]. Performed By: #### T OX SC ####[facility] PATHOLOGY [id number] [place] [address], Ethanol [Mass/Vol] Negative Normal Cutoff: 1 0 mg/dL The [facility] Comment on above: Order Comment: This toxicology screen provides unconfirmed analytical results suitable for clinical management. Results are reported as positive (at or above the cutoff) or negative (below the cutoff). Amphetamines 1000 ng/mL Barbiturates 200 ng/mL Methadone 300 ng/mL Opiates 300 ng/mL Oxycodone 100 ng/mL Fentanyl 1 ng/mL Hydrocodone 100 ng/mL Benzodiazepines 200 ng/mL Cocaine Metabolite 300 ng/mL PCP 25 ng/mL THC 50 ng/mL Norbuprenorphine 10 ng/mL Alcohol 10 mg/dLPositive qualitative result does not indicate or measure intoxication. For toxicology consultation please call the laboratory at [phone]. Performed By: #### T OX ID ####S PATHOLOGY [id number] [place] [address], FENTANYL Negative Normal Negative The [facility] Comment on above: Order Comment: This toxicology screen provides unconfirmed analytical results suitable for clinical management. Results are reported as positive (at or above the cutoff) or negative (below the cutoff). Amphetamines 1000 ng/mL Barbiturates 200 ng/mL Methadone 300 ng/mL Opiates 300 ng/mL Oxycodone 100 ng/mL Fentanyl 1 ng/mL Hydrocodone 100 ng/mL Benzodiazepines 200 ng/mL Cocaine Metabolite 300 ng/mL PCP 25 ng/mL THC 50 ng/mL Norbuprenorphine 10 ng/mL Alcohol 10 mg/dLPositive qualitative result does not indicate or measure intoxication. For toxicology consultation please call the laboratory at [phone]. Performed By: #### T OX ID ####S PATHOLOGY [id number] [place] [address], HYDROCODONE (PM) Negative Normal Negative The [facility] Comment on above: Order Comment: This toxicology screen provides unconfirmed analytical results suitable for clinical management. Results are reported as positive (at or above the cutoff) or negative (below the cutoff). Amphetamines 1000 ng/mL Barbiturates 200 ng/mL Methadone 300 ng/mL Opiates 300 ng/mL Oxycodone 100 ng/mL Fentanyl 1 ng/mL Hydrocodone 100 ng/mL Benzodiazepines 200 ng/mL Cocaine Metabolite 300 ng/mL PCP 25 ng/mL THC 50 ng/mL Norbuprenorphine 10 ng/mL Alcohol 10 mg/dLPositive qualitative result does not indicate or measure intoxication. For toxicology consultation please call the laboratory at [phone]. Performed By: #### T OX ID ####[facility] PATHOLOGY [id number] [place], [place], Methadone Ql (U) Negative Normal Negative [facility] [employer] [facility] Comment on above: Order Comment: This toxicology screen provides unconfirmed analytical results suitable for clinical management. Results are reported as positive (at or above the cutoff) or negative (below the cutoff). Amphetamines 1000 ng/mL Barbiturates 200 ng/mL Methadone 300 ng/mL Opiates 300 ng/mL Oxycodone 100 ng/mL Fentanyl 1 ng/mL Hydrocodone 100 ng/mL Benzodiazepines 200 ng/mL Cocaine Metabolite 300 ng/mL PCP 25 ng/mL THC 50 ng/mL Norbuprenorphine 10 ng/mL Alcohol 10 mg/dLPositive qualitative result does not indicate or measure intoxication. For toxicology consultation please call the laboratory at [phone]. Performed By: #### T OX ID ####[facility] PATHOLOGY [id number] [place], [place], NORBUPRENORPHINE Negative Normal Cutoff: 10 [facility] [employer] [facility] Comment on above: Order Comment: This toxicology screen provides unconfirmed analytical results suitable for clinical management. Results are reported as positive (at or above the cutoff) or negative (below the cutoff). Amphetamines 1000 ng/mL Barbiturates 200 ng/mL Methadone 300 ng/mL Opiates 300 ng/mL Oxycodone 100 ng/mL Fentanyl 1 ng/mL Hydrocodone 100 ng/mL Benzodiazepines 200 ng/mL Cocaine Metabolite 300 ng/mL PCP 25 ng/mL THC 50 ng/mL Norbuprenorphine 10 ng/mL Alcohol 10 mg/dLPositive qualitative result does not indicate or measure intoxication. For toxicology consultation please call the laboratory at [phone]. Performed By: #### T OX ID ####[facility] PATHOLOGY [id number] [place], [place], OPIATE Negative Normal Negative [facility] [employer] [facility] Comment on above: Order Comment: This toxicology screen provides unconfirmed analytical results suitable for clinical management. Results are reported as positive (at or above the cutoff) or negative (below the cutoff). Amphetamines 1000 ng/mL Barbiturates 200 ng/mL Methadone 300 ng/mL Opiates 300 ng/mL Oxycodone 100 ng/mL Fentanyl 1 ng/mL Hydrocodone 100 ng/mL Benzodiazepines 200 ng/mL Cocaine Metabolite 300 ng/mL PCP 25 ng/mL THC 50 ng/mL Norbuprenorphine 10 ng/mL Alcohol 10 mg/dLPositive qualitative result does not indicate or measure intoxication. For toxicology consultation please call the laboratory at [phone]. Performed By: #### T OX ID ####[facility] PATHOLOGY [id number] [place], [place], OXYCODONE Negative Normal Cutoff: 100 The [facility] Comment on above: Order Comment: This toxicology screen provides unconfirmed analytical results suitable for clinical management. Results are reported as positive (at or above the cutoff) or negative (below the cutoff). Amphetamines 1000 ng/mL Barbiturates 200 ng/mL Methadone 300 ng/mL Opiates 300 ng/mL Oxycodone 100 ng/mL Fentanyl 1 ng/mL Hydrocodone 100 ng/mL Benzodiazepines 200 ng/mL Cocaine Metabolite 300 ng/mL PCP 25 ng/mL THC 50 ng/mL Norbuprenorphine 10 ng/mL Alcohol 10 mg/dLPositive qualitative result does not indicate or measure intoxication. For toxicology consultation please call the laboratory at [phone]. Result Comment: Oxyc odone and metabolites of Oxycodone (Oxymorphone, Noroxycodone, and Noroxymorphone) are measured/detected in this assay method. Performed By: #### T OX ID ####[facility] PATHOLOGY [id number] [place] [address], PHENCYCL Negative Normal Negative The [facility] Comment on above: Order Comment: This toxicology screen provides unconfirmed analytical results suitable for clinical management. Results are reported as positive (at or above the cutoff) or negative (below the cutoff). Amphetamines 1000 ng/mL Barbiturates 200 ng/mL Methadone 300 ng/mL Opiates 300 ng/mL Oxycodone 100 ng/mL Fentanyl 1 ng/mL Hydrocodone 100 ng/mL Benzodiazepines 200 ng/mL Cocaine Metabolite 300 ng/mL PCP 25 ng/mL THC 50 ng/mL Norbuprenorphine 10 ng/mL Alcohol 10 mg/dLPositive qualitative result does not indicate or measure intoxication. For toxicology consultation please call the laboratory at [phone]. Performed By: #### T OX SC ####[facility] PATHOLOGY [id number] [place], [place], THC CL Positive Abnormal Negative [facility] [employer] [facility] Comment on above: Order Comment: This toxicology screen provides unconfirmed analytical results suitable for clinical management. Results are reported as positive (at or above the cutoff) or negative (below the cutoff). Amphetamines 1000 ng/mL Barbiturates 200 ng/mL Methadone 300 ng/mL Opiates 300 ng/mL Oxycodone 100 ng/mL Fentanyl 1 ng/mL Hydrocodone 100 ng/mL Benzodiazepines 200 ng/mL Cocaine Metabolite 300 ng/mL PCP 25 ng/mL THC 50 ng/mL Norbuprenorphine 10 ng/mL Alcohol 10 mg/dLPositive qualitative result does not indicate or measure intoxication. For toxicology consultation please call the laboratory at [phone]. Performed By: #### T OX ID ####[facility] PATHOLOGY [id number] [place], [place], TROPONIN Ion 02-05-2021 TROP I < 0.030 Normal <0.120 [facility] [employer] [facility] Comment on above: Result Comment: Rang e <=0.04 ng/mL: Negative Interpretation: Repeat testing in four to six hours if clinically indicated. Range 0.04-0.11 ng/mL: Suspected for acute myocardial injury. Interpretation: Serial measurements may be necessary to confirm or exclude the diagnosis of acute coronary syndrome. Repeat testing in four to six hours if clinically indicated. Range >=0.12 ng/mL: Results consistent with myocardial injury. Interpretation: Clinical and laboratory correlation recommended. Performed By: #### T ROP I #### S PATHOLOGY LABORATORY [address] [place], [place], Transfer Noteon 02-05-2021 Appellate Law Clerk Authentication Interface Message Text Neuro Critical Care Transfer Note 75 yo right handed M w/ PMHx colon cancer (s/p resection), Fuchs' dystrophy (s/p multiple corneal transplants), atrial fibrillation (s/p ablation and on Xarelto), COPD, DM type 2, depression, HLD, sleep apnea (not on CPAP) who presents as transfer from OSH after CTH showed acute L parietal cortical ICH in the setting of AC w/ Xarelto - Neuro Checks q4 hrs. Repeat CTH stable. CTA no vasc abnormalities. MRI. Pending. On home prozac. Melatonin. Holding zolpidem, trazodone. On home atorvastatin. Acetaminophen, Oxy for pain - Goal SBP < 140. Afib. Holding xarelto. Continue home Metoprolol 50 BID. Try Labetalol hydralazine PRN if needed. Trop negative on admission - on RA. DARY but doesn't use cpap. Resp accessor for copd. Fluticasone inhaler. -Reg diet. Sucralfate (home med) and bowel regimen. -SSI q AC/HS -SCDs only for now. Hold SQH. PT/OT Get MRI-brain w/wo to assess for CAA, previous bleeds, neoplasm. Will need to be off a/c for at least 2-4 weeks, if MRI shows CAA he may not be able to restart it. Ok for ASA 325 at post-bleed day 7. [ ] MRI head w/wo pending [ ] ECHO pending ?NEUROLOGY MUST BE CONSULTED ON THIS PATIENT AND MUST SEE THE PATIENT PRIOR TO DISCHARGE FROM THE HOSPITAL ONCE TRANSFERRED TO THE FLOOR ?TRANSITION OF CARE RECOMMENDATIONS BLOOD PRESSURE Goal SBP < 140mmHg SERUM SODIUM Normonatremia ANTIPLATELET OR ANTICOAGULATION REGIMEN Will need to be off a/c for at least 2-4 weeks, if MRI shows CAA he may not be able to restart it. Ok for ASA 325 at post-bleed day 7. FOLLOW-UP IMAGING MRI is pending OUTPATIENT FOLLOW-UP Cardiology, Neurology. Neuro Exam: Awake and alert. Oriented x 3. PERRL. Face symmetric. Tongue midline BUE no drift RUE 5/5 throughout LUE 5/5 throughout RLE 5/5 throughout LLE 5/5 throughout Report called to [phone] Thibodeaux aware of and in agreement with transfer. Mary Briseno MSN, COMMUNITY DEVELOPMENT MANAGER-FIBER ARTIST Adult-Gerontological Acute Care Nurse Practitioner Neuro Critical Care Unit [phone] Normal [facility] ABO RH TYPEon 02-04-2021 ABO and Rh group Nom (Bld) Blood group O Rh(D) positive Normal [facility] Comment on above: Performed By: #### 8 2303 #### NURSING GLUCOSE [facility] [address] [place] [address], [address] BASIC METABOLIC PANELon 09-0 Anion gap [Moles/Vol] 15 mmol/L High 5-13 [facility] Comment on above: Performed By: #### 8 2948 #### NURSING GLUCOSE PROGRAM [address] [place], [address] Calcium [Mass/Vol] 9.7 mg/dL Normal 8.4-10.4 The [facility] Comment on above: Performed By: #### 8 2948 #### NURSING GLUCOSE PROGRAM [address] [place], [address] Chloride [Moles/Vol] 99 mmol/L Normal 97-111 [facility] Comment on above: Performed By: #### 8 2948 #### NURSING GLUCOSE PROGRAM [address] [place], [address] CO2 [Moles/Vol] 27 mmol/L Normal 21-30 The [facility] Comment on above: Performed By: #### 8 2948 #### NURSING GLUCOSE PROGRAM [address] [place], [address] Creatinine [Mass/Vol] 0.92 mg/dL Normal 0.80-1.30 [facility] Comment on above: Performed By: #### 8 2948 #### NURSING GLUCOSE PROGRAM [address] [place], [address] ESTIMATED GFR (CKD-EPI) 81 mL/min/1.73sqm Normal >=60 The [facility] Comment on above: Performed By: #### 8 2948 #### NURSING GLUCOSE PROGRAM [address] [place], [address] Glucose [Mass/Vol] 104 mg/dL Normal 80-116 The [facility] Comment on above: Performed By: #### 8 2948 #### NURSING GLUCOSE PROGRAM [address] [place], [address] Potassium [Moles/Vol] 4.1 mmol/L Normal 3.3-5.3 [facility] Comment on above: Performed By: #### 8 2948 #### NURSING GLUCOSE PROGRAM [address] [place], [address] Sodium [Moles/Vol] 137 mmol/L Normal 135-148 [facility] Comment on above: Performed By: #### 8 6608 #### NURSING GLUCOSE PROGRAM [address] [place] [address], [place], [address] Urea nitrogen [Mass/Vol] 11 mg/dL Normal 8-22 [facility] Comment on above: Performed By: #### 8 2948 #### NURSING GLUCOSE [facility]GRAM [address] [place] [address], [address] COMPLETE BLOOD COUNTon 02-04 Erythrocyte distribution width (RBC) [Ratio] 12.9 % Normal 11.5-14.5 [facility] Comment on above: Performed By: #### 8 2948 #### NURSING GLUCOSE PROGRAM [address] [place] [address], [address] Hematocrit (Bld) [Volume fraction] 42.4 % Normal 41.0-53.0 The [facility] Comment on above: Performed By: #### 8 2948 #### NURSING GLUCOSE PROGRAM [address] [place] [address], [address] Hemoglobin (Bld) [Mass/Vol] 14.2 g/dL Normal 13.9-16.3 [facility] Comment on above: Performed By: #### 8 2948 #### NURSING GLUCOSE PROGRAM [address] [place] [address], [address] MCH (RBC) [Entitic mass] 32.5 pg Normal 26.0-34.0 [facility] Comment on above: Performed By: #### 8 2948 #### NURSING GLUCOSE PROGRAM [address] [place] [address], [address] MCHC (RBC) [Mass/Vol] 33.5 g/dL Normal 32.0-35.9 [facility] Comment on above: Performed By: #### 8 2948 #### NURSING GLUCOSE PROGRAM [address] [place] [address], [address] MCV (RBC) [Entitic vol] 97 fL Normal 80-100 [facility] Comment on above: Performed By: #### 8 2948 #### NURSING GLUCOSE PROGRAM [address] [place], [address] Platelet mean volume (Bld) [Entitic vol] 8.1 fL Normal 7.5-11.2 The [facility] Comment on above: Performed By: #### 8 2948 #### NURSING GLUCOSE PROGRAM [address] [place] [address], [address] Platelets (Bld) [#/Vol] 193 10*3/uL Normal 150-400 [facility] Comment on above: Performed By: #### 8 2948 #### NURSING GLUCOSE PROGRAM [address] [place], [address] RBC (Bld) [#/Vol] 4.38 10*6/uL Low 4.50-5.90 The [employer] [facility] Comment on above: Performed By: #### 8 2948 #### NURSING GLUCOSE PROGRAM [address] [place], [address] WBC (Bld) [#/Vol] 9.5 10*3/uL Normal 4.5-11.5 The [facility] Comment on above: Performed By: #### 8 2948 #### NURSING GLUCOSE PROGRAM [address] [place], [address] ED Provider Noteson 02-05-20 Appellate Law Clerk Authentication Interface Message Text Attestation signed by Abraham Gautam MD at 02/06/2021 9:29 PM ATTENDING NOTE I was present with the resident during the history and exam and during the obtaining of the greene and critical portions of the history and exam. I reviewed the resident's documentation and discussed the case with the resident and agree with the resident's medical decision making as documented in the residents note. Critical Care Provider Statement Critical care time was provided for 30 minutes by the attending physician. The time involved in the performance of this care was exclusive of separately billable procedures, teaching time and treating other patients. Critical care was necessary because of an illness or injury that acutely impaired one or more vital organs systems such that there was a high probability of imminent or life threatening deterioration in the patient's condition. The critical illness/injury acutely impaired the following organ systems: Central Nervous Critical care was time was spent personally by the attending physician on the following activities: obtaining history from patient, obtaining history from family / other source, examination of patient, re-evaluations of patient condition / response to treatment, ordering and review of laboratory studies, ordering and review of radiographic studies, and discussions with consultants and / or primary provider MD Abraham Caldera MD EMERGENCY DEPARTMENT - VISIT NOTE --------- HISTORY OF PRESENT ILLNESS ----- Industrial Relations Manager: not needed - patient preferred language is Tuvaluan. The history is provided by the Patient. Sravanthi Araujo is a 75 year old male presenting to the ED as a transfer from [facility] for intraparenchymal bleed. Pt presented for headache, confusion, difficulty carrying a conversation, feeling off balance, fatigue, and slight SOB that started at noon today. Covid vaccinated. CT head with acute subcortical hemorrhage involving left parietal lobe. NIH was 0. CXR with no acute cardiopulmonary disease. On arrival to the ED patient complains of headache and that he has to urinate. Headache is central, constant, moderate in severity, nonradiating. Nothing makes it better or worse. On xarelto for afib. INR there was 1.3. Started on nicardipine gtt as well as given kcentra 2000 units, vitamin K 10 mg. Transferred to [facility] for higher level of care. REVIEW OF SYSTEMS Review of Systems Constitutional: Positive for fatigue. Negative for chills and fever. HENT: Negative for sore throat. Eyes: Negative for visual disturbance. Respiratory: Positive for shortness of breath. Negative for cough. Cardiovascular: Negative for chest pain. Gastrointestinal: Negative for abdominal pain, diarrhea, nausea and vomiting. Genitourinary: Negative for difficulty urinating. Musculoskeletal: Negative for arthralgias. Skin: Negative for wound. Neurological: Positive for headaches. Negative for dizziness, weakness and light-headedness. Hematological: Does not bruise/bleed easily. Psychiatric/Behaviora l: Negative for agitation. PAST HISTORY Pertinent Past History: Colon cancer, CHF, arthritis, afib, asthma, CKD stage 2, T2DM PHYSICAL EXAM - BP 102/55 Pulse 83 Temp 97.7 ???F (36.5 ???C) (Oral) Resp 16 Ht 5' 9 (1.753 m) Wt 193 lb 1.6 oz (87.6 kg) SpO2 92% PF 320 L/min BMI 28.52 kg/m??? Constitutional Nursing triage notes reviewed, Vital signs reviewed, Alert, Awake and No acute distress HENT Head atraumatic, normocephalic Eyes No discharge and Nonicteric Neck Supple Lungs Clear to auscultation. No wheezes, rales, or rhonchi. Heart Regular rate and irregular rhythm, No murmurs, No rubs and No gallops Abdomen Soft, Nondistended, Nontender. No rebound or guarding. Back ROM to spine is normal Extremities Full ROM all 4 extremities Neuro Alert and oriented x4. CN 2-12 intact. Speech normal. Strength 5/5 bilateral upper and lower extremities. Sensation grossly intact bilateral upper and lower extremities. NIH0. Skin No rash or lesion, Warm and Dry Psych Normal affect, Good eye contact and Cooperative MEDICAL DECISION MAKING and ED COURSE Nursing triage and assessment notes reviewed and incorporated Chart Reviewed: Summary of pertinent elements includes seen at OSH for head bleed Evaluated by EM attending Abraham Gautam Course: ED Course as of Feb 05 905SunFeb 04, 2021 2130 Spoke with NSMAGGIE Almazan, will come see patient. [KO] ED Cour (more content not included)... Normal [facility] PARTIAL THROMBOPLASTIN TIMEo n 02-04-2021 aPTT Coag (Bld) [Time] 43 s High 25-37 [facility] Comment on above: Performed By: #### 8 2948 #### NURSING GLUCOSE PROGRAM [address] [place], [address] PROTHROMBIN TIME AND INRon 0 02-04-2021 INR Coag (PPP) [Relative time] 1.50 {INR} High 0.90-1.10 [facility] Comment on above: Performed By: #### 8 2948 #### NURSING GLUCOSE PROGRAM [address] [place], [address] PT Coag (PPP) [Time] 16.9 s High 9.7-12.9 [facility] [employer] [facility] Comment on above: Performed By: #### 8 2948 #### NURSING GLUCOSE PROGRAM [address] [place], [address] TYPE AND SCREENon 02-04-2021 ABO and Rh group Nom (Bld) No Previous Results Normal [facility] Comment on above: Performed By: #### 8 2948 #### NURSING GLUCOSE PROGRAM [address] [place], [address] ABSC INT Negative Normal [facility] Comment on above: Performed By: #### 8 2948 #### NURSING GLUCOSE PROGRAM [address] [place], [address] Vital Signs Date Time Vital Sign Value Performing Clinician Facility 08-02-2023 09:20-0500 Body height 175.3 cm Kristyn CARRANZA Work Phone: [employer] 08-02-2023 09:20-0500 Body mass index (BMI) [Ratio] 26.57 kg/m2 Kristyn Lopez PA Work Phone: [employer] 08-02-2023 09:20-0500 Body weight 81.65 kg Kristyn Lopez PA Work Phone: [employer] 08-02-2023 09:20-0500 Diastolic blood pressure 80 mm[Hg] Kristyn Lopez PA Work Phone: [employer] 08-02-2023 09:20-0500 Heart rate 70 /min Kristyn Lopez PA Work Phone: [employer] 08-02-2023 09:20-0500 Systolic blood pressure 138 mm[Hg] Kristyn Lopez PA Work Phone: [employer] 03-13-2023 13:30-0400 Body height 175.26 cm Marina Gaines Other [facility] Other 03-13-2023 13:30-0400 Body mass index (BMI) [Ratio] 26.37 kg/m2 Marina Gaines Other [facility] Other 03-13-2023 13:30-0400 Body temperature 98.2 [degF] Marina Gaines Other [facility] Other 03-13-2023 13:30-0400 Body weight 81.01 kg Marina Gaines Other [facility] Other 03-13-2023 13:30-0400 Diastolic blood pressure 66 mm[Hg] Marina Gaines Other [facility] Other 03-13-2023 13:30-0400 Respiratory rate 18 /min Marina Gaines Other [facility] Other 03-13-2023 13:30-0400 SaO2% (BldA) [Mass fraction] 96 % Marina Gaines Other [facility] Other 03-13-2023 13:30-0400 Systolic blood pressure 124 mm[Hg] Marina Gaines Other [facility] Other 09-28-2021 15:31-0400 Body height 175.26 cm Fish Artis Naderer Work Phone: [facility] [address] DO Work Phone: 09-28-2021 15:31-0400 Body mass index (BMI) [Ratio] 27.73 kg/m2 Fish Artis Naderer Work Phone: [facility] [address] DO Work Phone: 09-28-2021 15:31-0400 Body surface area Derived from formula 2.01 m2 Fish Artis Naderer Work Phone: [facility] 250 DO Work Phone: 09-28-2021 15:31-0400 Body weight 85.19 kg Fish Artis Naderer Work Phone: [facility] 250 DO Work Phone: 09-28-2021 15:31-0400 Diastolic blood pressure 52 mm[Hg] Fish Artis Naderer Work Phone: [facility] 250 DO Work Phone: 09-28-2021 15:31-0400 Heart rate 88 /min Fish Artis Naderer Work Phone: [facility] 250 DO Work Phone: 09-28-2021 15:31-0400 Systolic blood pressure 104 mm[Hg] Fish Artis Naderer Work Phone: [facility] 250 DO Work Phone: Encounters Encounter Date Encounter Type Care Provider Facility Start: 09-25-2023 End: 09-25-2023 Evaluation and management of inpatient AYESHA JERONIMO [facility] Start: 09-24-2023 End: 09-25-2023 Evaluation and management of inpatient SRAVANTHI Fung [facility] Start: 09-24-2023 End: 09-24-2023 Evaluation and management of inpatient SRAVANTHI Fung [facility] Start: 09-12-2023 End: 09-13-2023 ambulatory KRISTYN LOPEZ [facility] Start: 09-11-2023 End: 09-12-2023 ambulatory AYESHA Juárez KANDACE [facility] Start: 09-11-2023 Encounter for other [facility]procedural examination [facility] Start: 08-07-2023 Telephone encounter Renetta Lewis RN [facility] Comment on above: Surgical Or Dental C learance Start: 08-02-2023 End: 08-03-2023 ambulatory KRISTYN LOPEZ [facility] Start: 08-02-2023 Telephone encounter Kristyn CARRANZA Work Phone: [facility] Start: 08-02-2023 End: 08-03-2023 ambulatory KRISTYN LOPEZ [facility] Start: 08-02-2023 End: 08-02-2023 Office outpatient new 45 minutes Kristyn CARRANZA Work Phone: [facility] Comment on above: Urgency incontinence (Primary Dx); Benign prostatic hyperplasia with nocturia Start: 06-05-2023 End: 06-05-2023 ambulatory [place] Chandra [facility] Start: 03-13-2023 End: 03-13-2023 ambulatory Marina Gaines Other [facility] Other Start: 03-13-2023 Office outpatient vi sit 25 minutes Marina Gaines [facility] Start: 10-30-2022 End: 10-30-2022 ambulatory PA ALEJANDRINA OQUENDO . Facility:[facility] Start: 08-20-2022 End: 08-21-2022 ambulatory KIRILL LOPEZ Facility:[facility] Start: 07-26-2022 End: 07-27-[address] СВЕТЛАНА CAROLINA Facility:[facility] Start: 06-26-2022 End: 06-27-[address] FISH LEVY Facility:[facility] Start: 03-07-2022 End: 03-08-[address] MCKENZIE BELTRÁN Facility:[facility] Start: 11-10-2021 End: 11-11-[address] FISH LEVY Facility:[facility] Start: 09-28-2021 Office outpatient vi sit 25 minutes Fish Levy Work Phone: [facility] 250 DO Work Phone: Start: 07-13-2021 End: 07-14-2021 Evaluation and management of inpatient Leandra Abbasi Facility:[facility] Start: 2021 End: 2021 ambulatory [facility] Start: 02-17-2021 End: 02-17-2021 ambulatory UNKNOWN PROVIDER Facility:[facility] Start: 02-10-2021 ambulatory UNKNOWN PROVIDER Facili ty:[facility] Start: 02-08-2021 ambulatory UNKNOWN PROVIDER Facili ty:[facility] Start: 02-05-2021 End: 02-05-2021 ambulatory TEGAN THIBODEAUX Facility:[facility] Start: 02-05-2021 End: 02-11-2021 Evaluation and management of inpatient RONDA JuárezLarry ANITA Facility:[facility] Start: 02-04-2021 End: 02-04-2021 ambulatory UNKNOWN PROVIDER Facility:[facility] Start: 04-25-2017 Patient encounter status [place] CARRANZA Work Phone: [employer] Procedures Date Procedure Procedure Detail Performing Clinician Start: 08-02-2023 Urnls dip stick/tabl et rgnt auto w/o microscopy Kristyn CARRANZA Work Phone: Start: 11-10-[address] СВЕТЛАНА CAROLINA Comment on above: Performed By: #### C BC #### [facility] [address] [address] [address] Armando Dumas Start: 12-29-2019 Colonoscopy Kristyn CARRANZA Work Phone: Arthroplasty of knee Fish Artis Naderer Work Phone: Comment on above: bilateral; Colonoscopy Fish Artis Naderer Work Phone: Destructive procedure Fish Artis Naderer Work Phone: Low anterior resecti on of rectum Fish A Naderer Work Phone: Operation on colon Fish Chandra Na derer Work Phone: Surgical procedure o n eye proper Fish A Naderer Work Phone: Plan of Treatment Date Care Activity Detail Author Start: 12-28-2024 Screening for malign ant neoplasm of colon Colonoscopy [facility] Start: 08-01-2024 Adult BMI Screening Adult BMI Screen ing [facility] Start: 08-01-2024 Tobacco Screening Tobacco Screening [facility] Start: 09-24-2023 End: 09-24-2023 Admission to same day surgery center 09/24/2023 10:30 AM EDT - 09/24/2023 11:00 AM EDT Surgery [facility] [address] [place] [address] Sravanthi Castellanos MD [address] [place] [address] CYSTOSCOPY WITH U OF M BLADDER SOLUTION [15667 (CPT )] [facility] Comment on above: CYSTOSCOPY WITH U OF M BLADDER SOLUTION [70511 (CPT )] Start: 09-24-2023 End: 09-24-2023 Cysto bladder w/ureteral catheterization CYSTOSCOPY RETROGRADE PYELOGRAM Urgency incontinence Benign prostatic hyperplasia with nocturia 09/24/2023 10:30 AM [facility] Start: 09-24-2023 End: 09-24-2023 Cystourethroscopy CYSTOSCOPY Urgency incontinence Benign prostatic hyperplasia with nocturia 09/24/2023 10:30 AM EDT [facility] Start: 09-24-2023 Subsequent hospital visit by physician [facility] Start: 09-11-2023 End: 09-11-2023 Patient encounter procedure 09/11/2023 11:15 AM EDT Procedure visit [facility] - Pre Admit [address] [place] [id number] [facility] - Pre Admit Start: 08-06-2023 COVID-19 Vaccine () COVID-19 Vaccine () [facility] Start: 08-02-2023 End: 08-01-2024 US Retroperitoneum Ultrasound retroperitoneal complete Imaging Routine Urgency incontinence Expected: 08/02/2023, Expires: 08/01/2024 [facility] Phone: Comment on above: Expected: 08/02/2023 , Expires: 08/01/2024 Start: 02-24-2022 FUV, Provider: Edin Clifford, Status: Pen, Time: 2:10 PM FUV, Provider: Edin Clifford, Status: Pen, Time: 2:10 PM [facility] 250 DO Work Phone: Start: 11-30-2021 DTaP,Tdap and Td Vac cines (2 - Td or Tdap) DTaP,Tdap and Td Vaccines (2 - Td or Tdap) [facility] Start: 04-20-2013 Administration of varicella zoster vaccine Zoster (Shingles) Vaccine (1 of 2) [facility] Start: 2010 Fall Risk Screening Fall Risk Screen ing [facility] Start: 1963 Adult BMI Follow Up Plan Adult BMI F ollow Up Plan [facility] Start: 1957 Depression Screening Depression Scre ening [facility] Start: 1945 Medicare Annual Well ness Visit Medicare Annual Wellness Visit [facility] Cysto bladder w/uret eral catheterization CYSTOSCOPY RETROGRADE PYELOGRAM Urgency incontinence Benign prostatic hyperplasia with nocturia [facility] Cystourethroscopy CYSTOSCOPY Urg ency incontinence Benign prostatic hyperplasia with nocturia [facility] Immunizations Immunization Date Immunization Notes Care Provider Karen baez 05-04-2021 Moderna COVID-19 Vac cine 100 MCG/0.5ML Intramuscular Suspension Fish A Naderer Work Phone: [facility] 250 DO Work Phone: 03-25-2021 Fluad Quadrivalent 0 .5 ML Intramuscular Prefilled Syringe Fish A Naderer Work Phone: [facility] 07-30-2020 Moderna COVID-19 Vac cine 100 MCG/0.5ML Intramuscular Suspension Fish A Naderer Work Phone: [place] [address] DO Work Phone: 07-02-2020 Moderna COVID-19 Vac cine 100 MCG/0.5ML Intramuscular Suspension Fish A Naderer Work Phone: [place] [address] DO Work Phone: 2019 influenza virus vacc ine, unspecified formulation Kristyn CARRANZA Work Phone: [facility] 03-28-2018 influenza, high dose seasonal, preservative-free Fish Artis Nadummr Work Phone: [place] [address] DO Work Phone: 05-11-2017 pneumococcal conjuga te vaccine, 13 valent Fish Artis Naderer Work Phone: [place] [address] DO Work Phone: 02-23-2013 zoster vaccine, live Fish Artis Naderer Work Phone: [facility] 250 DO Work Phone: 02-23-2013 zoster vaccine, unspecified formulation Kristyn CARRANZA Work Phone: [facility] 12-01-2011 tetanus toxoid, redu sanjuanita diphtheria toxoid, and acellular pertussis vaccine, adsorbed Fish A Naderer Work Phone: [facility] 250 DO Work Phone: 04-06-2010 pneumococcal polysaccharide vaccine, 23 valent Fish Levy Work Phone: [facility] 250 DO Work Phone: Payers Date Payer Category Payer Self-pay 2018 Unknown 2010 Medicare MEDICARE MEDICAR E PART A & B [id number] 2010-Present [phone] [address] [place] [address] [id number] 1959 Medicare [id number] 1959 Unknown [id number] 1945 Unknown [id number] 2.16.840.1.503652.3.579.2.732 1945 Unknown [id number] 2.16.840.1.894555.3.579.2.732 1945 Unknown [id number] 2.16.840.1.049715.3.579.2.732 1945 Unknown [id number] 2.16.840.1.025722.3.579.2.732 1945 Unknown [id number] 2.16.840.1.188418.3.579.2.732 1945 Unknown [id number] 2.16.840.1.041191.3.579.2.732 1945 Unknown [id number] 2.16.840.1.544721.3.579.2.732 1945 Unknown [id number] 2.16.840.1.663247.3.579.2.732 1945 Unknown [id number] 2.16.840.1.061143.3.579.2.732 1945 Unknown [id number] 2.16.840.1.920028.3.579.2.732 1945 Unknown [id number] 2.16.840.1.299185.3.579.2.732 1945 Unknown [id number] 2.16.840.1.921179.3.579.2.593 1945 Unknown [id number] 2.16.840.1.670173.3.579.2.593 1945 Unknown [id number] 2.16.840.1.956492.3.579.2.593 1945 Unknown [id number] 2.16.840.1.260585.3.579.2.593 1945 Unknown [id number] 2.16.840.1.171881.3.579.2.593 1945 Unknown [id number] 2.16.840.1.630034.3.579.2.593 1945 Unknown [id number] 2.16.840.1.384960.3.579.2.1286 1945 Unknown [id number] 2.16.840.1.936000.3.579.2.1286 1945 Unknown [id number] 2.16.840.1.976346.3.579.2.1286 1945 Unknown [id number] 2.16.840.1.293133.3.579.2.1286 1945 Unknown [id number] 2.16.840.1.047680.3.579.2.1286 1945 Unknown [id number] 2.16.840.1.799883.3.579.2.1286 1945 Unknown [id number] 2.16.840.1.433238.3.579.2.1286 1945 Unknown [id number] 2.16.840.1.713246.3.579.2.1286 1945 Unknown [id number] 2.16.840.1.837831.3.579.2.1286 1945 Unknown [id number] 2.16.840.1.259037.3.579.2.1286 1945 Unknown [id number] 2.16.840.1.632729.3.579.2.1286 Unknown [id number] 2.16.840.1.736591.3.579.2.531 Social History Date Type Detail Facility Start: 07-15-2020 End: 08-02-2023 Caffeine use Caffeine use [facility] Comment on above: 1 LARGE CUP COFFEE D AILY, OCCASIONAL DIET COKE; QUIT SMOKING - SMOKED - 1 PPD; Start: 07-15-2020 End: 08-02-2023 Sex Assigned At [facility] Start: 05-24-2022 Tobacco smoking stat [facility] Ex-smoker [facility] History of tobacco use Current smoker [facility] History of tobacco use Cigar Smoker [facility] Start: 05-24-2022 Tobacco use and exposure Former smokeless tobacco user [facility] History of tobacco use Chews Tobacco [facility] Start: 08-02-2023 Alcohol intake Current drinke r of alcohol (finding) [facility] Childcare Unknown [facility] Start: 05-02-2017 Alcohol Comment [facility]ELY [facility] Start: 1945 Sex Assigned At Not on file P [facility] Medical Equipment Procedure Code Equipment Code Equipment Origin al Text Equipment Identifier Dates Mesh 1in Med Pp Srgpro Nabsb Knit Plg Srg Strl Clr Hrn Rpl [id number] - Sna - [id number] Start: 04-17-2023 Device Clsr 35mm Watchman Flx Dlv Sys Thrd Ins Lt Atr - [id number] Start: 04-19-2021 daily. [id number] Start: 12-24-2017 USE TO TEST BLOO D SUGAR ONCE QD [id number] Start: 12-24-2017 Clinical Notes 02-05-2021 to 09-11-2023 Telephone Encounter - Renetta Lewis RN - 08/07/2023 10:29 AM ESTTelephone Encounter - Rosalinda Mallory MD - 08/07/2023 10:29 AM ESTTelephone Encounter - Renetta Lewis RN - 08/07/2023 10:29 AM EST Note Date & Type Note Facility 09-11-2023 Note XR CHEST 2 VWS EXAM: Chest, 2 views REASON FOR EXAM: Preoperative evaluation, coronary artery disease, chronic obstructive pulmonary disease TECHNIQUE: Upright PA and lateral views of the chest were obtained. COMPARISON: 04/05/2023 FINDINGS: Cardiomediastinal silhouette appears unchanged. No pneumothorax or pleural effusion. No focal airspace disease. Left atrial appendage closure device. IMPRESSION: * No acute findings. Approved by Resident Simon Horvath DO on 09/11/2023 10:57 AM IMone MD have personally reviewed the image(s) and agree with and/or edited the report Finalized by Mone Davenport MD on 09/11/2023 12:12 PM [facility] 08-07-2023 Miscellaneous Notes Received request for cardiac clearance. Patient tentatively scheduled for cystoscopy with possible retrograde pyelograms under MAC anesthesia. They are asking that the patient hold Aspirin 7 days prior to procedure. Patient was l/s [place] [facility] [place] [facility] [place], at that visit he was recommended to f/u in 1 year (Feb 2024) Mod not prohib risk Would like him off aspirin for less than 7 days, can they do with off 3 days Letter created and faxed to [phone] [facility] 08-07-2023 Telephone encounter Note Received request for cardiac clearance. Patient tentatively scheduled for cystoscopy with possible retrograde pyelograms under MAC anesthesia. They are asking that the patient hold Aspirin 7 days prior to procedure. Patient was l/s in ST by [facility] on 02/09/23, at that visit he was recommended to f/u in 1 year (Feb 2024) [facility] [employer] [facility] 08-07-2023 Telephone encounter Note Mod not prohib risk Would like him off aspirin for less than 7 days, can they do with off 3 days [facility] 08-07-2023 Telephone encounter Note Letter created and faxed to [phone] [facility] [employer] [facility] 08-02-2023 Evaluation + Plan note Associated Problem(s): Benign prostatic hyperplasia with nocturia He is requesting to follow with Dr. Castellanos in [place]. I explained cystoscopy to him in detail including the potential risks. He is requesting to go under anesthesia for the procedure. PVR is slightly elevated. He is going to try to decrease his Ditropan to 5 mg daily. We will see if this will allow him to empty his bladder better. We will call to get his most recent PSA results. EMANUEL today is benign [facility]23 Miscellaneous Notes Associated Problem(s): Benign prostatic hyperplasia with nocturia He is requesting to follow with Dr. Castellanos in [place]. I explained cystoscopy to him in detail including the potential risks. He is requesting to go under anesthesia for the procedure. PVR is slightly elevated. He is going to try to decrease his Ditropan to 5 mg daily. We will see if this will allow him to empty his bladder better. We will call to get his most recent PSA results. EMANUEL today is benign documented in this encounter [facility] 08-02-2023 Miscellaneous Notes Unique: Would you please get his most recent PSA from [facility]: Please schedule him for cystoscopy/possible bilateral retrograde pyelogram/U of M instillation under MAC anesthesia with Dr. Castellanos in [place]. Diagnosis: Urge incontinence I tried calling the office multiple times left vm requesting a callback Spoke to pt 08/06/2023 [place] pat 09/11/2023 @ 1115am [facility]23 @ 1030am arrive @ 830am Pt aware info sent thru [employer] and mailed 08/06/2023 Clearance sent to supervisor central supply 08/06/2023 documented in this encounter [facility] 08-02-2023 Telephone encounter Note Unique: Would you please get his most recent PSA from [facility]: Please schedule him for cystoscopy/possible bilateral retrograde pyelogram/U of M instillation under MAC anesthesia with Dr. Castellanos in [place]. Diagnosis: Urge incontinence [facility] 08-02-2023 Telephone encounter Note I tried calling the office multiple times left vm requesting a callback [facility] 08-02-2023 Telephone encounter Note Spoke to pt 08/06/2023 Andrea bales 09/11/2023 @ 1115am [facility] 09/24/2023 @ 1030am arrive @ 830am Pt aware info sent thru [facility] and mailed 08/06/2023 Clearance sent to supervisor central supply 08/06/2023 [facility] 08-02-2023 History of Presen t illness Narrative Images from the original note were not included. [address] [facility] [address] Patient: Sravanthi Araujo Date of : 1945 Encounter Date: 08/02/2023 History of Present Illness: Chief Complaint: Urinary urgency The patient is a 78 y.o. male, a new patient, and is here for frequency and urgency Over the past year he has had gradual onset urinary frequency and urgency. It is getting worse. Usually his stream is small and he denies any splitting or spraying. He gets up every 2 hours at night to void. His urgency is worse when he stands up. He has occasional urge incontinence. He denies any stress incontinence. He drinks 3 glasses of water during the day and 1 cup of coffee in the morning. He has been on tamsulosin for a long time. He recently increase the dose to 0.8 mg nightly. He was started on oxybutynin a couple of months ago. He has had 30-40% improvement in his urgency since starting the medication. He denies any side effects. He denies any gross hematuria or dysuria. He has a history of smoking 2 packs a day often on for 20 years, quitting in the He reports that he gets his PSA checked a regular basis. He said the last 1 was drawn 6 months ago he was told it was okay. Postvoid residual as measured by bladder scan is 169 cc's. Urinalysis today: Recent Labs 08/02/23 0924 EXTPOCURBS Negative EXTPOCUKET Negative EXTPOCUPRO Negative EXTPOCUNIT Negative EXTPOCUBLD Trace EXTPOCUPH 6.0 EXTPOCULEE Negative Last BUN and creatinine: Lab Results Component Value Date BUN 15 04/05/2023 Lab Results Component Value Date CREATININE 1.13 04/05/2023 Past Medical, Family, and Social History Update: The following portions of the patient's history were reviewed and updated as appropriate: allergies, current medications, past family history, past medical history, past social history, past surgical history and problem list. Past Medical History: Diagnosis Date Arthritis Asthma Atrial flutter Cancer [place] colon Cataract CHF (congestive heart failure) ([facility] Chronic atrial fibrillation ([facility]) COPD (chronic obstructive pulmonary disease) ([facility] Depression Diabetes mellitus ([facility] Diabetes mellitus type 2, controlled ([facility] Dizziness Encounter for preprocedural cardiovascular examination Heart disease History of bilateral YAG laser iridotomy HLD (hyperlipidemia) Irregular heartbeat Sleep apnea no machine at home SOB (shortness of breath) 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 Salmon COLECTOMY COLONOSCOPY N/A 12/29/2019 Performed by Sravanthi Hurtado DO at [facility] STRIPPING AUTOMATED ENDOTHELIAL KERATOPLASTY Bilateral EGD N/A 12/29/2019 Performed by Sravanthi Hurtado DO at [facility] EYE SURGERY JOINT REPLACEMENT Left atrial appendage closure with ICE N/A 04/19/2021 Performed by Rosalinda Mallory MD at [facility] CARDIAC CATH LABS REPAIR HERNIA INGUINAL mesh Right 04/17/2023 Performed by Sravanthi Hurtado DO at [facility] REPLACEMENT TOTAL KNEE Bilateral SINUS SURGERY THYROID LOBECTOMY Left 03/03/2019 LEFT THYROID LOBECTOMY WITH LARYNGEAL NERVE MONITOR AND PRESERVATION Family History Problem Relation Age of Onset Heart disease Mother Diabetes Mother Lung disease Mother Seizures Father Cancer Father Prostate cancer Father Diabetes Sister Current Outpatient Medications Medication Sig Dispense Refill albuterol (PROVENTIL HFA;VENTOLIN HFA) 90 mcg/actuation inhaler Inhale 2 puffs every 4 (four) hours as needed for wheezing. aspirin 81 mg capsule Take 81 mg by mouth in the morning. atorvastatin (LIPITOR) 40 mg tablet Take 1 tablet (40 mg total) by mouth daily. 90 tablet 3 donepeziL (ARICEPT) 5 mg tablet Take 1 tablet (5 mg total) by mouth nightly. FLUoxetine (PROzac) 40 mg capsule Take 1 capsule (40 mg total) by mouth in the morning. metFORMIN (GLUCOPHAGE) 500 mg tablet Take 1 tablet (500 mg total) by mouth in the morning and 1 tablet (500 mg total) before bedtime. ONETOUCH DELICA LANCETS 33 gauge misc daily. 11 ONETOUCH VERIO strip USE TO TEST BLOOD SUGAR ONCE QD 11 ONETOUCH VERIO SYSTEM misc See Admin Instructions. 0 oxybutynin XL (DITROPAN-XL) 10 mg 24 hr tablet TAKE 1 TABLET BY MOUTH EVERY DAY prednisoLONE acetate (PRED FORTE) 1 % ophthalmic suspension Administer 1 drop to both eyes in the morning. 6 psyllium (METAMUCIL) powder Take 1 packet by mouth in the morning. 1 teaspoon daily. tamsulosin (FLOMAX) 0.4 mg capsule Take 1 capsule (0.4 mg total) by mouth nightly. No current facility-administered medications for this visit. (All medications reviewed and updated by provider since last office visit or hospitalization) Allergies: Flecainide Tobacco History: Social History Tobacco Use Smoking Status Former Types: Cigars Smokeless Tobacco Former Types: Chew (If patient a smoker, smoking cessation counseling offered) Social History: Social History Substance and Sexual Activity Alcohol Use Yes Comment: RARELY Review of Systems: Constitutional: Normal activity and energy. Patient denies change in appetite, weight loss or gain, malaise (depression), chills, fever, or diaphoresis (sweating). Eyes: Vision Changes Ears, Nose, Nose and Throat: Patient denies tinnitus (ringing in ears), hearing loss, epistaxis (nose bleed), hoarseness, and dysphagia (hard to swallow). Respiratory: Patient denies dyspnea (shortness of breath), cough, hemotypsis (blood in sputum), and wheezing. Cardiovascular: Shortness of breath Gastrointestinal: Abdominal pain Musculoskeletal: Patient denies joint pain/stiffness, weakness, swelling, and backache. Neurologic: Weakness and Dizziness Integument: Patient denies rashes and non-healing lesions. Psychiatric: Depression Endocrine: Diabetes and Excessive urination Blood Disorders: Anemia and Easy Bruising Physical Exam: BP 138/80 Pulse 70 Ht 175.3 cm (5' 9.02 ) Wt 81.6 kg (180 lb) BMI 26.57 kg/m Constitutional: He appears well-developed. No distress. HENT: Head: Atraumatic. Nose: Nose normal. Eyes: Conjunctivae are normal. Pulmonary/Chest: Effort normal. No respiratory distress. Neurological: He is alert and oriented for age. Gait normal. Skin: Skin is warm and dry. Psychiatric: He has a normal mood and affect. His speech is normal. Rectal: smooth, soft, symmetric Nursing note and vitals reviewed. Assessment and Plan: Joe was seen today for new patient. Diagnoses and all orders for this visit: Urgency incontinence - POCT Urinalysis Auto, W/O Microscopy - Microscopic, urine; Future - Ultrasound retroperitoneal complete; Future Benign prostatic hyperplasia with nocturia Problem List Other Benign prostatic hyperplasia with nocturia Overview ====08/02/23====Frequency, urgency, urge incontinence, and nocturia despite tamsulosin 0.8mg and Ditropan XL 10mg. PVR 169. Will send urine for microscopic exam. He agrees to renal/bladder US and cystoscopy/possible BRPG/U of M Current Assessment & Plan He is requesting to follow with Dr. Castellanos in [place]. I explained cystoscopy to him in detail including the potential risks. He is requesting to go under anesthesia for the procedure. PVR is slightly elevated. He is going to try to decrease his Ditropan to 5 mg daily. We will see if this will allow him to empty his bladder better. We will call to get his most recent PSA results. EMANUEL today is benign TERE COVINGTON This note was created with the assistance of a speech recognition program. While intending to generate a timely document that accurately reflects the content of the visit, no guarantee can be provided that every grammatical or spelling mistake has been or will be identified or corrected. Thank you for your understanding. TERE Covington 08/02/23 1503 documented in this encounter [employer] 08-02-2023 Instructions TERE Covington - 08/02/2023 9:30 AM EST Your urine today shows trace blood. I am sending this out for microscopic exam. I will notify you of the results through [employer]. This will let us know if there truly is blood in the urine or not. For further evaluation of your symptoms, we will get an ultrasound of your kidneys and bladder. I will notify you of the results through [employer]. We will also schedule you for a cystoscopy/possible bilateral retrograde pyelogram/U of M instillation with Dr. Castellanos in [place]. La will call you in a few weeks to get this arranged. I will let her know you want to be under anesthesia. This will let Dr. Castellanos know what is going on with the anatomy of your lower urinary tract. It should give us some insight as to whether or not we think your symptoms are related to the bladder or the prostate or both. In the meantime, continue with Flomax. You are actually retaining a little bit of urine today. You could try decrease in your oxybutynin to half a tablet daily. If your symptoms get worse, he can go back to taking 1 full tablet. Kristyn: [phone] (Ext [phone]) Camila The following attachments cannot be sent through Care Everywhere.Cystoscopy ([place])documented in this encounter [facility] 03-13-2023 Evaluation note Encounter Date Diagnosis Assessment Notes Mar, Contact with and (suspected) exposure to covid-19 (ICD-10 - Z20.822) Mar, COVID-19 (ICD-10 - U07.1) COVID PCR test performed in office today. Advised patient that test was positive. Influenza A/B PCR test negative Instructed patient to isolate per CDC guidelines for 5 days from symptom onset, mask 5 days following. May return to work/activities outside home after isolation period as long as symptoms are improving and has been afebrile for 24 hours without use of antipyretic. Advised patient that treatment of COVID is with viral supportive care, rx of Morse, Flonase, and Zofran as directed, Tylenol/Motrin as needed for body aches/fever. Increase fluids and rest. Encouraged use of cool mist humidifier. Follow-up with PCP to advise of positive result and further management. Immediate eval for SOB, difficulty, chest pain, fevers that do not break with antipyretic or any other concerning symptoms as reviewed on patient education handout. Patient verbalizes understanding and is agreeable to treatment plan. Patient left in stable condition [employer] Other 09-10-2021 NoteHospital Medicine Attending Progress Note Patient: Sravanthi Araujo Gender: male : 1945 Age: [age] year old Date of Service: 02/10/2021 Subjective: E/o vertigo again this am. Thinks might be related to oxycodone, (pt has been on oxycode sonce prior to arriving on this floor). Had nausea. This resolved. e/o vertigo/nausea and ?confusion noted last night. Medication: * amLODIPine 10 mg Daily * insulin lispro 2-9 Units 3x Daily AC * melatonin 5 mg At Bedtime * [AUG Hold] fluticasone 1 Puff BID RT * sucralfate 1 g 4x Daily * prednisoLONE acetate 1 Drop Daily * atorvastatin 40 mg At Bedtime * fluoxetine 40 mg Daily * metoprolol 50 mg 2x Daily * [MAR Hold] ipratropium-albuterol 3 mL Q4H RT * [AUG Hold] albuterol 2.5 mg Q4H RT * [AUG Hold] ipratropium 0.5 mg Q4H RT * senna 8.6 mg At Bedtime * oxyCODONE 5 mg Q8H PRN * hydrALAZINE 25 mg Q8H PRN * acetaminophen 650 mg Q6H PRN * albuterol 2.5 mg Q4H PRN * dextrose 12.5 g PRN Or * glucagon 1 mg PRN Or * dextrose 15 g of glucose PRN Or * dextrose 30 g of glucose PRN Exam: Patient Vitals for the past 24 hrs: BP Temp Temp src Pulse Resp SpO2 02/10/21 2039 134/73 98.2 ???F (36.8 ???C) Oral 75 20 93 % 02/10/21 1709 136/80 -- -- 80 -- -- 02/10/21 1706 130/74 -- -- 77 -- -- 02/10/21 1703 126/67 -- -- 80 -- -- 02/10/21 1528 107/63 98 ???F (36.7 ???C) Oral 62 20 95 % 02/10/21 1227 113/61 98.7 ???F (37.1 ???C) Oral 73 18 96 % 02/10/21 0758 129/80 98.1 ???F (36.7 ???C) Oral 70 18 96 % 02/10/21 0400 130/83 97.9 ???F (36.6 ???C) Oral 67 18 96 % BMI: 28.52 Fingerstick Glucose Glucose 02/10/21 2117 103 02/10/21 1652 84 Comment: Follow Protocol Notified FARIHA BARROW MD 02/10/21 1109 125 02/10/21 0801 130 CN II-XII intact. Strength 5/5 throughout GSI. FNF/FAIZAN nl RR CTABL Abd soft, +BS Assessment and Plan : ICH/SAH -unclear etiology. MRI does not favor prior changes or anatomical lesion. -NCC recommend 2-4 wks prior to starting AC. -continue Norvasc 5 -will need Neuro f/u as OP, in addition to PCP and Cardiology as OP ??? Vertigo - intermittent. -CT head stat -will need to d/w Neurology AF - hold xearlto per NCC./NSGY -CT to ensure safe to restart antiplt medications. -restart AC as OP after Neuro f/u w/in 2-4 wks. NOK: Extended Emergency Contact Information Primary Emergency Contact: BREN Araujo Relation: Spouse Ronda Voss, Division of Hospital Medicine, [facility] [id number] Note OCCUPATIONAL THERAPY PROGRESS SUMMARY Patient seen from 10:25 AM to 11:00 AM on 9 C unit for 35 minute treatment. SUBJECTIVE: Patient Subjective/Goals I live in [place]. OBJECTIVE: Pain: 7/10 back of head Pain Relief Interventions Implemented: Notified Nurse Appearance/Behavior: Patient supine in bed, tele monitor, cooperative Cognition: A+OX3 UE Status: WFL Self Care: Assistance Level NA Dep Max Mod Min CG CS DS IL I Set-Up Cues Comment Feeding x Grooming/ Hygiene X Washed hands standing at sink Bathing: Upper Body X Simulated Bathing: Lower Body X Simulated Dressing: Upper Body X Don/doffed gown around back Dressing: Lower Body X Doff/don socks Toileting X Simulated Toilet Transfers X Functional mobility throughout room/divisiomn without device Bed Transfer X Functional mobility throughout room/divisiomn without device Bed Mobility x Patient sitting in chair with call light/phone within reach Endurance for Self Care: WFL Patient/Family Education:Educated compensatory methods to assist self care functioning DME: With Patients permission ordered no equipment via [employer] Order. If any questions contact [place] DME Provider at [phone]. 6 Clicks Daily Activity OT 02/10/2021 Help from another person Eating meals 4 Help from another person taking care of personal grooming 3 Help from another person bathing 3 Help from another person putting on and taking off regular upper body clothing 3 Help from another person putting on and taking off regular lower body clothing 3 Help from another person toileting 3 OT 6 Clicks Score 19 6 Click Score Guidelines: 1 - Unable = Total/Dependent Assist 2 - A lot = Max/Moderate Assist 3 - A little = Minimum/Contact Guard Assist/Supervision 4 - Non = Modified [place]/Independent ASSESSMENT: Patient is functionally appropriate for discharge home once medically cleared. Will continue to follow patient while in hospital as appropriate. Fdc Goals: ONGOING Patient will perform grooming with???Modified Independent Patient will dress upper body with???Modified Independent Patient will dress lower body with???Modified Independent Patient will perform bed mobility with???Modified Independent Patient will perform bathing with???Modified Independent Patient will perform toileting with???Modified Independent Patient will perform bed transfers with???Modified Independent Patient will perform commode transfers with???Modified Independent PLAN: Continue with Plan as per Initial Evaluation. Roel HUTCHINSON/Giovanni NA = Not Assessed, I = Independent, IL = Modified Independent, Sup = Supervised, Set up = Physical Assistance for Set-up Only, Min = Minimal Assistance, Mod = Moderate Assistance, Max = Max assistance; Dep = Dependent; AROM = Active Range of Motion;PROM=Passive Range of Motion; MMT = Manual Muscle Test; Shld= Shoulder; Add = Adduction; Abd = AbductionThe [place] [id number] NoteDis[address] [id number] Sravanthi Araujo Date of : 1945 75 year old male Attending Ronda Voss DO PCP No primary care provider on file. 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 Future Appointments Date Time Provider Department Center 02/17/2021 3:45 PM Arian Mcmahon DO [facility] [place] 2021 2:00 PM Skylar Gastelum APRN-CNP [facility] Neuro [facility] Condition at Discharge Improved Activity No restrictions Diet Diabetic Disposition Home Functional Status Ambulatory Discharge Medications: Current Discharge Medication List START taking these medications Details amLODIPine (NORVASC) 10 MG tablet Take 1 Tablet by mouth daily. Qty: 30 Tablet, Refills: 3 aspirin EC 325 MG tablet Take 1 Tablet by mouth daily. Qty: 30 Tablet, Refills: 2 prednisoLONE acetate (PRED FORTE) 1 % ophthalmic suspension Place 1 Drop in both eyes daily. Qty: 5 mL, Refills: 0 CONTINUE these medications which have NOT CHANGED Details metoprolol (TOPROL-XL) 100 mg XL tablet Take 1 Tablet by mouth daily. Qty: 30 Tablet, Refills: 2 tamsulosin (FLOMAX) 0.4 MG capsule Take 0.4 mg by mouth daily. sildenafil citrate (Viagra) 100 MG tablet Take 100 mg by mouth as needed for Erectile Dysfunction. atorvastatin (LIPITOR) 40 mg tablet fluoxetine (PROZAC) 40 MG capsule metformin (GLUCOPHAGE) 1000 MG tablet Take 1 Tablet by mouth 2 times daily. zolpidem (AMBIEN) 10 MG tablet STOP taking these medications Xarelto 20 MG tablet Comments: Reason for Stopping: metoprolol (LOPRESSOR) 50 MG tablet Comments: Reason for Stopping: Procedures and Major Tests: [facility] 02/10/2021 IMPRESSION: Slight decrease in the hyperdensity in the left parietal region. This may represent evolving blood products. A subacute infarction with development of laminar necrosis could also have this appearance. Given its somewhat atypical appearance, continued follow-up to resolution is recommended. ??? ECHO 02/08/2021 ???Summary ?Normal LV systolic function. ???The left ventricular ejection fraction (LVEF) is 60%. ???Diastolic LV function assessed by resting Doppler is uncertain. ???Normal RV systolic function. ???Dilated left atrium, ascending aorta. ???Concentric left ventricular hypertrophy is present. ???Mild aortic, tricuspid valve regurgitation. ???Noninvasive hemodynamic assessment is consistent with upper normal ???pulmonary artery systolic pressure, a normal CVP. ???See above for further details. ??? 02/06/2021 MR brain IMPRESSION: : Subarachnoid hemorrhage within the left posterior parietal sulci. ? 02/05/2021 CTA Head/neck IMPRESSION: No significant change in ???subarachnoid hemorrhage in a left posterior parietal sulcus. No significant stenosis, dissection, or aneurysm in the intracranial or extracranial circulation. ??? Reason for hospitalization ICH Hospital Course: Patient is a 75yo male, transfer from [facility], w/ history of Afib (usually on xarelto), T2DM, and colon cancer (s/p resection) who was originally sent here from OSH after CT head showed acute L parietal cortical ICH in setting of taking Xarelto for Afib. The actual etiology of the ICH is unclear (thought possibly to be 2/2 HTN or possibly CAA - though MRI did not show classic changes for this). His remained neurologically stable and deemed stable enough to transfer from [facility] to [facility], with a goal of systolic blood pressure <140. While on the medicine floor, he has been neurologically stable, but his blood has been running borderline and occasionally above 140s systolic, for which he was started on Norvasc and uptitrated to 10mg every day. Had two transient episodes of diaphoresis, nausea, and dizziness, repeated CTH stable - above (both were after taking oxycodone for his pain - SIDDIQUI since his presentation). His blood pressure well controlled on Amlodipine and Metoprolol. Neuro-exams have been stable. He was started on Aspirin tx per Neurology recommendations on hospital D7. He will Continue his aspirin treatment until follow up w/ Neurology. ??? Follow-up: Recommend repeat CTH outpatient to determine resolution. Need to monitor blood pressure and titrate control Follow-up with IM at [facility] on 02/17/2021, Neurology 2021, cardiology 03/11/2021 Need to see neurology prior to starting Xarelto (currently on ASA) It has been our pleasure taking care of Mr. Araujo. Victor Hugo Rodriguez, DO He/Him/His PGY-1 Med-Peds Pager: [phone]09-09-2021 NoteINTERNAL MEDICINE TEAM 9 DAILY PROGRESS NOTE Patient: Sravanthi Araujo : 1945 Sex: male Room: [place] [address] Admit Date: 02/04/2021 Today's Date: 02/10/2021 Length of stay: 6 day(s) HOSPITAL COURSE: Patient is a 75yo male, transfer from [facility], w/ history of Afib (usually on xarelto), T2DM, and colon cancer (s/p resection) who was originally sent here from OSH after CT head showed acute L parietal cortical ICH in setting of taking Xarelto for Afib. The actual etiology of the ICH is unclear. His was beurologically stable and deemed stable enough to transfer from [facility] to [facility], with a goal of systolic blood pressure <140. While on the medicine floor, he has been neurologically stable, but his blood has been running borderline and occasionally elevated during the afternoons. EVENTS IN PAST 24H: No overnight events, BP better controlled. SUBJECTIVE: Patient is resting comfortably, and in fact was walking to the unit bathroom when I arrived. He reports that he is feeling well and wants to get home, and would like to know with some notice so he can tell his who lives 1.5 hours away. Later in the shift it was reported to me that he had another episode similar to yesterday, although I had followed up with his nurse later who clarified that there was no vertigo or dizziness this time, but did have the brief nausea. Similar to yesterday, it happened around two hours after taking his morning medications and prn oxycodone. Neurology was notified and asked to comment. OBJECTIVE: Patient Vitals for the past 24 hrs: BP Temp Temp src Pulse Resp SpO2 O2 Device 02/10/21 0400 130/83 97.9 ???F (36.6 ???C) Oral 67 18 96 % Room air 02/09/21 2000 132/93 98.3 ???F (36.8 ???C) Oral 90 18 98 % Room air 02/09/21 1648 122/64 98.1 ???F (36.7 ???C) Oral 82 17 96 % Room air 02/09/21 1300 132/72 74 18 95 % 02/09/21 1217 144/86 97.9 ???F (36.6 ???C) Oral 71 18 94 % Room air 02/09/21 0858 156/72 98.2 ???F (36.8 ???C) Oral 80 18 95 % Room air Is/Os Baseline Weight Admission Weight Weight: 193 lb 1.6 oz (87.6 kg) Today's Weight Weight: 193 lb 1.6 oz (87.6 kg) BMI 28.52 Change in Weight: Current value is 193.1 lb (87.589 kg) on 02/04/2021 at 2327 No other value found for comparison Intake/Output Summary (Last 24 hours) at 02/10/2021 0737 Last data filed at 02/09/2021 1800 Gross per 24 hour Intake 480 ml Output Net 480 ml In: 480 (5.5 mL/kg) [P.O.:480] Out: - (0 mL/kg) Net: 480 Weight: 87.6 kg Physical Exam: Physical Exam Vitals reviewed. Constitutional: General: He is not in acute distress. Appearance: Normal appearance. He is not ill-appearing. HENT: Head: Normocephalic and atraumatic. Right Ear: External ear normal. Left Ear: External ear normal. Mouth/Throat: Mouth: Mucous membranes are moist. Pharynx: Oropharynx is clear. No oropharyngeal exudate or posterior oropharyngeal erythema. Eyes: General: No scleral icterus. Extraocular Movements: Extraocular movements intact. Conjunctiva/sclera: Conjunctivae normal. Pupils: Pupils are equal, round, and reactive to light. Cardiovascular: Rate and Rhythm: Normal rate. Comments: Irregularly irregular Pulmonary: Effort: Pulmonary effort is normal. No respiratory distress. Breath sounds: Normal breath sounds. No wheezing, rhonchi or rales. Abdominal: General: Abdomen is flat. Bowel sounds are normal. There is no distension. Palpations: Abdomen is soft. Tenderness: There is no abdominal tenderness. There is no guarding. Hernia: No hernia is present. Musculoskeletal: General: No swelling. Normal range of motion. Cervical back: Normal range of motion. Skin: General: Skin is warm and dry. Capillary Refill: Capillary refill takes less than 2 seconds. Coloration: Skin is not jaundiced. Neurological: General: No focal deficit present. Mental Status: He is alert and oriented to person, place, and time. Sensory: No sensory deficit. Motor: No weakness. Coordination: Coordination normal. Comments: CN I and CN II not tested (pt denies change in smell/taste) CN III - EOMI, no visual field deficits CN IV- EOMI CN V- normal facial sensation CN - EOMI CN VII- normal symmetric facial expressions, no facial droop CN VIII- normal hearing, finger rub heard at 4inch bilaterally CN IX, X, XII - normal tongue motion, no tongue deviation, no uvular deviation CN XI - 5/5 strength Trapezius/SCM symmetric Psychiatric: Mood and Affect: Mood normal. Behavior: Behavior normal. Lines, Tubes, Drains, Airway Peripheral IV Access: 02/05/21 0010 18 gauge Right Antecubital (Active) Site Assessment Dressing intact;WNL 02/09/212232 Infusion Status Port #1 Capped;Patent 02/09/212232 Number of days: 5 CURRENT MEDICATIONS: Scheduled Meds amLODIPine 10 mg Daily insulin lispro 2-9 Units 3x Daily AC melatonin 5 mg At Bedtime [MAR Hold] fluticasone 1 Puff BID RT sucralfate 1 g 4x Daily predn (more content not included)...[facility] [place] [id number] NoteSPEECH- LANGUAGE PATHOLOGY ACUTE TREATMENT NOTE Referral received, chart reviewed and history is noted. Time In: 10:40 Time Out: 11:00 Session Duration: 20 minutes Patient identified by patient/armband stating name and date of . SUBJECTIVE: Patient subjective/goals: I was wondering at first, what kind of Richie Mouse stuff this was? with regard to RN TELEPHONE TRIAGE's questioning. Pain: Denies Scale (if yes): 0/10 Location: OBJECTIVE: Language/Cognition: - Sustained attention: grossly intact; no need for repetition of instructions for structured language tasks. Does endorse attention difficulty prior to hospitalization. Patient able to recall strategies to improve attention (I.e., limiting environmental distractions.) Reviewed situations at home in which it would be good to consider assistance d/t attention issues (I.e., medication organization.) - Medical management task: Reviewed patients current process for medication management. Patient currently organizes pills on night. Patient uses weekly pill organization box. Discussed have involved in process to double check correct organization. - Organization of ADL's (I.e., driving, brushing teeth, etc.) 100% - Patient does endorse working memory deficits prior to hospitalization. Reviewed potential strategies as patient has an iPhone: using calendar on phone, setting reminders/alarms on phone. ASSESSMENT: Patient continues with mild deficits in higher level executive functioning cognitive tasks. Per discussion with patient, it appears that some of these deficits may be premorbid. Reviewed compensatory strategies with patient for attention and working memory. Patient appears safe to discharge home. Patient reports can assist as needed. home with patient 25/12. PLAN: -Continue to follow 1-3x per week while inpatient Goals: Short Tem Goals (to be achieved by discharge from hospital): 1. The patient sustain attention to structure task of topic for 5< minutes to promote increased concentration. 2. The patient will complete mid level mental manipulation tasks to facilitate improvement of concentration and working memory skills with 85%< accuracy given <1 repetition of stimuli and low stimulating environment 3. The patient will complete moderately complex organization tasks with 90%< accuracy 4. The patient will demo moderate level executive function skills for completion of functional tasks (I.e. med mngt, bill mngt, schedule mngt) with 85%< accuracy and min-no cuing Recommendations: -Continue skilled RN TELEPHONE TRIAGE services while in acute setting -Discussed outpatient speech therapy as needed upon d/c -May require assistance with higher level IADL's such as medication/finance management at d/c. Julian Adams [facility])-RN TELEPHONE TRIAGE Speech-Language Pathologist Pager: [phone]09-06-2021 NotePHYSICAL THERAPY PROGRESS SUMMARY Patient seen from 1604 to 1619 on 9C unit for 15 minute treatment. SUBJECTIVE: Patient Subjective/Goals: Pt in bed agreeable to PT tx, says he feels he is moving well. OBJECTIVE: Appearance: rehab director Behavior: WFL Pain: Site/Location: headache; Pain Scale: 3/10 Reports managable Mobility NA Dep Max Mod Min CG CS DS IL I Comment Roll to right sidelying Roll to left sidelying Sidelying to sit x Supine to sit x Transfers x Sit to/from stand x Walking on level surface x 300 feet no device, gait WFL Stairs x 2x4 stairs single HR Stand to sit x Sit to Supine Functional Endurance: WFL Sitting Balance: Static:good Dynamic:good Standing Balance: Static: good without assistive device Dynamic:good without assistive device Patient/Family Education: Instructed Patient in roles of therapy, current status, homegoing recommending paced activity/yardwork. Patient up in bed with call light in reach. ??? DME: With Patients permission ordered no equipment via [employer] Order. If any questions contact [place] DME Provider at [phone]. 6 Clicks Basic Mobility PT 02/07/2021 Difficulty turning over in bed 4 Difficulty sitting down and standing up from a chair with arms 4 Difficulty moving from lying on back to sitting on the side of the bed 4 Help from another person moving to and from bed to a chair 4 Help from another person to walk in hospital room 4 Help from another person climbing 3-5 steps with a railing 4 PT 6 Clicks Score 24 6 Click Score Guidelines: 1 - Total = Requires total assistance, or cannot do at all. 2 - A lot = Requires a lot of help (maximun to moderate assistance) Can use assistive devices. 3 - A little = Requires a little help (supervision, minimal assistance) Can use assistive devices. 4 - None = Does not require any help and does the activity independently. Can use assistive devices. ??? ASSESSMENT: Patient is functionally appropriate for discharge home once medically cleared. No further Physical Therapy services recommended at this time. Revised Goals: ALL MET Goals (to be achieved by 5 days or by discharge from acute care): Patient will achieve acceptable level of pain control to allow participation in therapy. Patient will increase bed mobility to independent Patient will perform pivot transfer, bed to/from chair with none with independent Patient will ambulate 150 feet with none with independent Patient will ascend/descend 6 stairs with 1 rail(s) and none with modified independent ??? PLAN: D/c PT Sravanthi Douglass, PT NA = Not Assessed, I = Independent, IL = Modified Independent, Sup = Supervised, Set up = Physical Assistance for Set-up Only, Min = Minimal Assistance, Mod = Moderate Assistance, Max = Maximal assistance; Dep = Dependent; AROM = Active Range of Motion; PROM = Passive Range of Motion; MMT = Manual Muscle TestThe [place] [id number] NoteOCCUPATIONAL THERAPY PROGRESS SUMMARY Patient seen from 8:20am to 8:47am on 9C unit for 27 minute treatment. New referral received. Pt already on OT caseload. SUBJECTIVE: Patient Subjective/Goals: I've always been a little bit forgetful. (pt stated when therapist asking cognitive questions) OBJECTIVE: Pain: No pain reported or noted - pt reports RN provided an oxy for SIDDIQUI this AM Pain Relief Interventions Implemented: None required; No pain at this time Appearance: Supine in bed, Hep-locked IV, 2L NC O2 Behavior: Awake, Alert, Pleasant, Cooperative, Easily Distracted by Tangential Roommate (pt expressing he would like his room changed, RN notified) Cognition: Ox3 Problem Solving: trials various techniques to open toothpaste seal Sequencing: WFL for bADL tasks Attention: mildly distracted by environmental factors UE Status: Grossly WFL Self Care: Assistance Level NA Dep Max Mod Min CG CS DS IL I Set-Up Cues Comment Feeding x Grooming/ Hygiene x Completes oral care routine standing at sink Bathing: Upper Body x Anticipate Bathing: Lower Body x Anticipate Dressing: Upper Body x Donned robe seated EOB Dressing: Lower Body x Doffed and donned socks via figure 4 Toileting x Anticipate Toilet Transfers x Anticipate Bed Transfer x Sit to stand from bed Fx mobility to/from bathroom without AD - no LOB, gathers ADL supplies from table Stand to sit on chair Bed Mobility x x Supine to sit - v/c to completely remove blankets/sheets for safety Patient up in chair with call light in reach. Patient verbalized understanding to call for assistance prior to ambulating back to bed/bathroom. RN notified. Endurance for Self Care: WFL - denies SOB Patient/Family Education: 1) Instructed Patient in roles of therapy. 2) Instructed Patient in roles, goals, treatment plan: demonstrated good verbal understanding. 3) Educated in possible stroke symptoms using BE FAST acronym DME: With Patients permission ordered no equipment via [employer] Order. If any questions contact [place] DME Provider at [phone]. 9 Clicks Daily Activity OT 02/06/2021 Help from another person Eating meals 4 Help from another person taking care of personal grooming 3 Help from another person bathing 3 Help from another person putting on and taking off regular upper body clothing 3 Help from another person putting on and taking off regular lower body clothing 3 Help from another person toileting 3 OT 6 Clicks Score 19 6 Click Score Guidelines: 1 - Unable = Total/Dependent Assist 2 - A lot = Max/Moderate Assist 3 - A little = Minimum/Contact Guard Assist/Supervision 4 - Non = Modified [place]/Independent ASSESSMENT: Patient is functionally appropriate for discharge home once medically cleared. Will continue to follow patient while in hospital as appropriate. [place] Goals: in progress Patient will perform grooming with Modified Independent Patient will dress upper body with Modified Independent Patient will dress lower body with Modified Independent Patient will perform bed mobility with Modified Independent Patient will perform bathing with Modified Independent Patient will perform toileting with Modified Independent Patient will perform bed transfers with Modified Independent Patient will perform commode transfers with Modified Independent PLAN: Continue with Plan as per Initial Evaluation. Lauren Wood, OTR/L [phone] NA = Not Assessed, I = Independent, IL = Modified Independent, Sup = Supervised, Set up = Physical Assistance for Set-up Only, Min = Minimal Assistance, Mod = Moderate Assistance, Max = Max assistance; Dep = Dependent; AROM = Active Range of Motion;PROM=Passive Range of Motion; MMT = Manual Muscle Test; Shld= Shoulder; Add = Adduction; Abd = AbductionThe Gendel [id number] NoteSW is aware of consult for Document self-managment assessment/education for stroke patient. Please see previous SW note. GEOFFREY Beckford, DEVOPS Inpatient Social WorkThe [facility]09-04-2021 NoteSW aware of a consult for New ICH. Stroke support, education. Stroke Social Work Evaluation Referral: Self-referral Hx: Sravanthi Araujo is a 75 year old right handed male w/ PMH colon cancer (s/p resection), Fuchs' dystrophy (s/p multiple corneal transplants), atrial fibrillation (s/p ablation and on Xarelto), COPD, DM type 2, depression, HLD, sleep apnea (not on CPAP) who presents as transfer from OSH after CTH showed acute L parietal cortical ICH in the setting of AC w/ Xarelto. Living Situation: Pt reports he lives with his , Bren Araujo ([phone]). Family: Pt reports he has support from his . Finances: Pt has Medicare AND Medicaid, A/B and medical mutual insurance. DME:cane straight and walker PCP: unknown Advance Directives: Living will: Yes Health Care POA:yes Guardian: No Other Pt reports he does have HCPOA, however he does not have it file. Pt reports his can bring it to the hospital. Legal Hx: Pt does not report any. Substance use: Pt reports he has a medical marijuana. Pt reports he uses THC gummies two or three times per week. Mental health: Pt reports he does have depression and takes antidepressants. Since the stroke, are you experiencing: Feelings of sadness or hopeless? No Any thought of harming yourself or others? No What are your vineyardist goal(s)? Return to independent living Assessment: SW met with pt at bedside. Pt reports he is from [place], [place]. He reports no beds were available in his area, so he came to [facility]. Pt reports he feels a lot better. Pt reports he believes his stroke was caused by his blood thinners. Pt reports he has discussed with his doctors about being on something different. Pt reports no other risk contributors to his stroke. Pt denies smoking cigarettes. Pt reports he has a medical marijuana card, however he does not smoke THC. He reports he eats THC gummies two or three times per week. Pt reports healthy eating habits. Plan: To be determined. Supportive Stroke Self-Management 1.Promotion of lifestyle changes that support self-management regimens Reinforcement on: Atrial Fibrillation 2.Involves Family and Community Structures in the participant's care regimens: Pt reports his is actively involved. Patient involved in patient support stroke self-management education 3.Evaluates barriers to lifestyle changes: None 4.Assessment and documentation of patient's response to recommended lifestyle changes:Pt reports he is discussing with his doctor changing his blood thinners. Patient receptive Luz Marina Fabian, MSSA, DEVOPS Inpatient Social WorkMet[facility]09-04-2021 NotePT evaluation completed, please see prior note. Sarahi To, PTTWayne HealthCare Main Campus09-04-2021 NotePHYSICAL THERAPY ACUTE EVALUATION Referral received, chart reviewed. Patient seen from 0837 to 09 on 3B unit for 20 minutes. Admit date/time: 02/04/2021 9:38 PM Reason for Admit: Pt is a 75 year old male who presented to outside hospital with increased confusion and headache, CT brain with hemorrhage of parietal lobe resulting in life flight to [facility] on 02/04 to neurocritical unit. Diagnosis: hypertensive intracerebral hemorrhage of left parietal lobe Precautions: Falls Procedures this admit: n/a Past Medical and Surgical History: PMH: No past medical history on file. A fib, colon CA s/p resection, CHF, arthritis, asthma, DM PSH: No past surgical history on file. Identification was verified by patient verbalizing his/her name and date of . and patient's id band and date of . 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 Assistance available: 24 hours Equipment available: cane and walker OBJECTIVE: Appearance: rehab director, Pulse Oximeter, Oxygen and IV Behavior: Awake Oriented x 3 Follows 3 step commands consistently Pain: Site/Location: head/neck; Pain Scale: 6/10 Pain Relief Interventions Implemented: Positioning and Rest Passive ROM: WFL Strength/Active ROM: WFL Mobility: Sit to stand: close supervision, verbal cues for slow pace, mild dizziness with standing Transfers: close supervision, verbal cues for safety and slow pace Ambulation/Gait: pt ambulated forward/retro steps X20', limited due to multiple lines, close supervision for safety with therapist managing lines, verbal cues for slow pace and safety due to limited space, no LOB noted Vitals: Pulse ox: 87-94% on 2L, cues for pursed lip breathing with activity BP: resting 125/62, post activity 160/129- believed to be due to patient moving arm, 2 min post activity 114/63 HR: 80's to low 90's throughout Endurance: fair Patient/Family Education: Instructed Patient in roles of therapy. Instructed Patient in roles, goals, treatment plan: demonstrated good verbal understanding. Patient up in chair with call light in reach. ???RN aware. DME: no need for DME anticipated 6 Clicks Basic Mobility PT 02/05/2021 Difficulty turning over in bed 4 Difficulty sitting down and standing up from a chair with arms 3 Difficulty moving from lying on back to sitting on the side of the bed 4 Help from another person moving to and from bed to a chair 3 Help from another person to walk in hospital room 3 Help from another person climbing 3-5 steps with a railing 3 PT 6 Clicks Score 20 6 Click Score Guidelines: 1 - Total = Requires total assistance, or cannot do at all. 2 - A lot = Requires a lot of help (maximun to moderate assistance) Can use assistive devices. 3 - A little = Requires a little help (supervision, minimal assistance) Can use assistive devices. 4 - None = Does not require any help and does the activity independently. Can use assistive devices. ??? ASSESSMENT: Sravanthi Araujo is a 75 year old male Who presented with increased confusion and headache who now is oriented X3, mildly decreased activity tolerance, limited mobility. He would benefit from skilled PT services while admitted to slowly increase mobility with monitoring of vitals. Do not anticipate need for skilled therapies once medically stable at this time. Anticipate patient will be appropriate for discharge home following 1-2 acute Physical Therapy sessions. Will continue to follow patient while in hospital as appropriate. Problems: Pain Decreased functional mobility Decreased endurance Decreased balance Decreased education in exercise/precautions Decreased cognition/behavior Rehabilitation Potential: Good Goals (to be achieved by 5 days or by discharge from acute care): Patient will achieve acceptable level of pain control to allow participation in therapy. Patient will increase bed mobility to independent Patient will perform pivot transfer, bed to/from chair with none with independent Patient will ambulate 150 feet with none with independent Patient will ascend/descend 6 stairs with 1 rail(s) and none with modified independent PLAN OF CARE: Frequency: Patient to be seen 3-4 times a week Interventions: Functional mobility Home exercise program Discharge planning and equipment ordering as needed Patient /Family education The evaluation findings and treatment plan were discussed with the patient/family. The patient/family indicated understanding and agreement with the plan. Sarahi To, PT NA = Not Assessed, I = Independent, IL = Modified Independent, Sup = Supervised, Set up = Physical Assistanc (more content not included)...[facility] 02-05-2021 NoteSPEECH-LANGUAGE PATHOLOGY ACUTE EVAL Referral received, chart reviewed and history is noted. Time In: 929 Time Out: 0954 Session Duration: 24 minutes Patient was identified by patient/armband stating name and date of . Date of Onset: 02/04/21 History/Diagnosis: 75 year old right handed male w/ PMH colon cancer (s/p resection), Fuchs' dystrophy (s/p multiple corneal transplants), atrial fibrillation (s/p ablation and on Xarelto), COPD, DM type 2, depression, HLD, sleep apnea (not on CPAP) who presents as transfer from OSH after CTH showed acute L parietal cortical ICH in the setting of AC w/ Xarelto. States he was at the grocery store earlier today around noon on 02/04/21, and became disoriented / confused while talking to a friend. He then couldn't find where he parked his truck. Also noticed he had a bad headache. Reports he has been in his usual state of health. No recent illnesses. Several weeks ago, switched from celexa to prozac; has felt fatigue since. Received 2000 units of Kcentra and 10mg Vit K prior to transfer. Nicardipine infusion used intermittently. First recorded BP at OSH 149/96. NSGY consulted on arrival to [facility]. Reporting headache, improved slightly with acetaminophen. Denies new blurry or double vision (poor vision at baseline), numbness/tingling/weakness or nausea / vomiting or dizziness. No past medical history on file. No past surgical history on file. Precautions: Aspiration, Fall. Full code. Imaging: CTA Head/Neck 02/05/21 No significant change in subarachnoid hemorrhage in a left posterior parietal sulcus. No significant stenosis, dissection, or aneurysm in the intracranial or extracranial circulation. Prior Level of Functioning: Patient lives with spouse and is retired. Has 3 grown children. Patient reports he is I with all ADLs and IADLs. SUBJECTIVE: Patient subjective/goals: The patient was alert and cooperative throughout session. Reports continuing to have some fogginess and difficulty with cognitive skills such as sending a text message. Pain: Scale (if yes): 0/10 Location: N/A OBJECTIVE: Language: Auditory Comprehension: Follows commands, responds to open and closed ended questions appropriately, and demo understanding of conversation. Verbal Expression: -Language production is intact at spontaneous level of production. Cognition: Orientation: PERSON: (+) name; (+) ; (+) age PLACE: (+) facility type; (+) hospital name; (+) city TIME: (+) EVA; (+) DOM; (+) JAMSHID; (+) YR; (+) TOD SITUATION: (+) Brief Cognitive Status Exam Subtest Raw Score Orientation 8 Time Estimation 4 Confrontation Naming 4 (Not calculated) Mental Control 10 Clock Drawing 0 (may have been impacted by vision impairment and UE shakes) Incidental Recall 8 Inhibition 6 Verbal Production 6 Total Raw Score (Maximum=58) 42 Classification Level by Age and Education Borderline WMS-IV Older Adult Record Form Memory: -Immediate Recall: 4/4 items -Delayed Recall: 3/4 after 5 minute delay -Working Memory: Intact for 20 digits in reverse Attention: -Selective:Intact -Sustained: Able to sustain attention to general task and assessment, but internally distracted within structured tasks. Often looses train of thought and requires repetition of instruction or prior statements to regain. Demo frustration regarding this. -Initiation: Intact -Impulse control: Impaired inhibition of structured task. Does not demo verbal or physical impulsivities. Problem Solving/Reasoning: -Intact for basic level hospital related scenarios -Intact for verbal problem solving of moderately-complex functional scenarios Causes: 2/2 Effects: 2/2 Solutions: 2/2 WFL mental flexibility for generating multiple alternatives -Reasoning skills are intact at the moderately complex level Generative: 2/2 Comparative: 2/2 Abstract: 2/2 [place]: 2/2 Organization: Mildly impaired for expression of thoughts/ideas -Impaired divergent thought organization for list generation -Severely impaired for verbal sequencing of multi-step functional/familiar task Insight: Good insight into areas of deficit; emerging insight into need for f/u services Pragmatic Behavior: Appropriate, calm, cooperative, social, pleasant. Speech: Speech Production: WFL Phonation: WFL ASSESSMENT: Impression: Assessment of cognitive function was conducted with administration of Brief Cognitive Status Exam yielding a total score of 42/58 correlating with borderline classification for age and educational status. Patient presents with mild cognitive impairment primarily in the areas of organization and concentration. Patient demo awareness of errors and areas of difficulty prior to and throughout assessment. Insight into need for follow up services is emerging. Educated patient on results and recommendations for outpatient RN TELEPHONE TRIAGE services if he were to return at this time. Will continue (more content not included)...The [facility] for [id number] NoteOCCUPATIONAL THERAPY INITIAL EVALUATION Patient seen from 0837 to 0903 on 3B unit for 20 minutes. Reason for Admit: patient presents at=s [facility] transfer from OSH with new onset confusion and frontral SIDDIQUI. Diagnosis: acute L parietal???cortical ICH in the setting of AC w/ Xarelto Precautions/Activity Order: Mod falls, full code, aspiration precautions, HOB 30*, Imagin02/04/2021 1830: CTH at OSH - small L parietal subcortical hyperdensity consistent with acute blood, without mass effect CT head: 02/05 ??? IMPRESSION: No significant change in subarachnoid hemorrhage in a left posterior parietal sulcus. ??? No significant stenosis, dissection, or aneurysm in the intracranial or extracranial circulation. Past Medical and Surgical History: PMH: No past medical history on file. Afib, colon CA, CHF,arthritis, asthma, T2DM, PSH:B/l corneal transplants, b/l knee replacement SUBJECTIVE: Patient Subjective:: I feel good moving, just this headache Patient Identified Goal(s):return home Home Living Situation Prior Functional Status: Independent Living. Independent with ADLs and IADLs. Assistance Available at Home: Yes. 25/12 available from Patient lives in a Split level home. 7 stairs upstairs, 7 stairs downstairs . Full Bathroom on 2nd level Bedroom on 2nd level. Equipment available at home: Cane, rolling walker OBJECTIVE: Patient Identification: patient verbalizing his/her name and date of . Risks and benefits of occupational therapy: Patient informed of risks and benefits of treatment Appearance: pt seated in chair upon arrival, EKG, BP cuff, pulse ox, IV, Alertness: WFL Affect: WNL Cooperation/Behavior: Appropriate dialogue with therapist and Pleasant and cooperative Communication: WFL Pain: Pain ratin/10, Location: head/neck Pain Relief Interventions Implemented: Positioning and RN aware and reports patient received medication according to time schedule Self Care: Assistance Level Dep Max Mod Min CG CS DS IL I Set-Up Comment Feeding x Observed with drinks Grooming/Hygiene x Anticipate, patient adjusting NC seated in chair Bathing:UB x Anticipate Bathing:LB x Simulates seated in chair Dressing:UB x Don gown seated in chair Dressing: LB x Don/doff socks Toileting x Anticipate Transfers/Bed Mobility: Assistance Level Dep Max Mod Min CG CS DS IL I Set-Up Comment Toilet Transfers x Anticipate Bed Transfers * pt seated in chair upon arrival Bed Mobility * pt seated in chair upon arrival Chair transfer x Sit to stand from chair without AD Functional mobility x Slow pace, ambulate short distance, patient c/o of dizziness. Further mobility limited due to space/lines. Endurance for Self Care: Impaired. Patient spo2 87%-94%. Cues for pursed lip breathing. BP seated in chair: 125/62 BP at end of session: 114/63 Static Sitting Balance: WFL Dynamic Sitting Balance: WFL UE Motor: BUE WFL Vision/Perception: WFL Cognition: Orientation: Oriented to person, place and date Follows Commands: WFL Attention: WNL Memory: WFL Problem Solving: WFL Safety/Judgement: WFL Sequencing: WFL Other Specialized Tests: None Patient/Family Education: Instructed patient in roles of therapy and instructed in roles, goals, treatment plan: demonstrated good verbal understanding Patient up in chair with call light in reach. DME: With Patients permission ordered no equipment via [facility] Order. If any questions contact [place] DME Provider at [phone]. ??? 6 Clicks Daily Activity OT 02/05/2021 Help from another person Eating meals 4 Help from another person taking care of personal grooming 3 Help from another person bathing 3 Help from another person putting on and taking off regular upper body clothing 3 Help from another person putting on and taking off regular lower body clothing 3 Help from another person toileting 3 OT 6 Clicks Score 19 6 Click Score Guidelines: 1 - Unable = Total/Dependent Assist 2 - A lot = Max/Moderate Assist 3 - A little = Minimum/Contact Guard Assist/Supervision 4 - Non = Modified [place]/Independent ASSESSMENT: Anticipate patient will be appropriate for discharge home following 1-2 acute Occupational Therapy sessions. Will continue to follow patient while in hospital as appropriate. Recommend Home Occupational Therapy. Rehabilitation Potential: Good Problem List: decreased ADLs, decreased endurance, decreased functional transfers/mobility, impaired balance, decreased home management tasks/IADLs and decreased functional activity tolerance Goals (to be achieved by discharge from acute care): Patient will perform grooming with Modified Independent Patient will dress upper body with Modified Independent Patient will dress lower body with Modified Independent Patient will perform bed mobility with Modified Independent Patient will perform bathing with Modified Independent Patient will perform (more content not included)...[facility] 02-05-2021 NoteMETROHEALTH NEUROSURGERY DAILY PROGRESS NOTE SUBJECTIVE: No acute events overnight. OBJECTIVE: Vitals: Vital sign ranges over the past 24 hours (retrieved 02/05/2021 at 7:30 AM): Tmax (24 hours): 98.7 ???F (37.1 ???C) Pulse Av.2 Min: 70 Max: 104 Systolic (24hrs), Av , Min:101 , Max:159 Diastolic (24hrs), Av, Min:47, Max:100 MAP (mmHg) Av.5 mmHg Min: 70 mmHg Max: 121 mmHg Resp Av.2 Min: 13 Max: 30 SpO2 Av.1 % Min: 89 % Max: 97 % In: 224.2 (2.6 mL/kg) [P.O.:220; I.V.:4.2 (0 mL/kg/hr)] Out: 1250 (14.3 mL/kg) [Urine:1250 (0.6 mL/kg/hr)] Net: -1025.8 Weight: 87.6 kg Medications: * [Aug] fluticasone 1 Puff BID RT * sucralfate 1 g 4x Daily * prednisoLONE acetate 1 Drop Daily * atorvastatin 40 mg At Bedtime * fluoxetine 40 mg Daily * metoprolol 50 mg 2x Daily * [AUG Hold] ipratropium-albuterol 3 mL Q4H RT * [AUG Hold] albuterol 2.5 mg Q4H RT * [Aug] ipratropium 0.5 mg Q4H RT * vitamin K 10 mg Daily * docusate sodium 100 mg 2x Daily * senna 8.6 mg At Bedtime * insulin regular 0-10 Units q6h * nicardipine 5 mg/hr (02/05/21 0139) * sodium chloride 75 mL/hr at 02/05/21 0000 * acetaminophen 650 mg Q6H PRN * oxyCODONE 5 mg Q6H PRN * albuterol 2.5 mg Q4H PRN * dextrose 12.5 g PRN Or * glucagon 1 mg PRN Or * dextrose 15 g of glucose PRN Or * dextrose 30 g of glucose PRN Labs: CBC/PT/INR WBC RBC Hgb Hct MCV RDW Plt PT aPTT INR 02/04/21 2356 42 02/04/216 1.49 02/04/212355 9.3 4.24 14.0 40.8 96 13.1 184 02/04/210 43 02/04/212119 1.50 02/04/212119 9.5 4.38 14.2 42.4 97 12.9 193 WBC/Diff None Basic Metabolic Panel Na K Cl CO2 Gap Glu BUN Cr Ca Mg PO4 02/04/212355 1.9 02/04/212355 3.6 02/04/212355 137 3.9 99 28 14 110 11 1.04 9.3 02/04/212119 137 4.1 99 27 15 104 11 0.92 9.7 Hepatic/Biliary/Pancreas T Prot Albumin D Bili T Bili Alk Phos ALT AST Amylase Lipase 02/04/212355 6.0 4.1 0.30 1.6 52 19 20 Cardiac Troponin I CK total CK-MB BNP 02/04/212355 <0.030 Comment: Range <=0.04 ng/mL: Negative Interpretation: Repeat testing in four to six hours if clinically indicated. Range 0.04-0.11 ng/mL: Suspected for acute myocardial injury. Interpretation: Serial measurements may be necessary to confirm or exclude the diagnosis of acute coronary syndrome. Repeat testing in four to six hours if clinically indicated. Range >=0.12 ng/mL: Results consistent with myocardial injury. Interpretation: Clinical and laboratory correlation recommended. Arterial Blood Gases None Fingerstick Glucose Glucose 02/05/21 0603 155 Comment: Notified FARIHA BARROW MD 02/04/21 2339 110 CSF Culture None Urine Culture None Pyogen Culture None Blood Culture None Sputum Culture None Physical Exam: AOx3 PERRL, EOMI FS, TM BUE 5/5 BLE 5/5 SILT globally No drift Assessment: 75 year old male with a PMH Afib (on xarelto, last dose 0830 20 mg), colon CA, CHF, arthritis, asthma, T2DM who presented to [facility] as [facility] tx from OSH after presenting this afternoon with new onset confusion and frontal SIDDIQUI. At OSH, CTH was performed which demonstrated small L parietal IPH. As pt on Xarelto, was given Vitamin K 10 mg and Kcentra 2000 units at OSH for AC reversal and transferred to [facility]. Pt neuro intact on presentation, small amount of blood without mass effect on initial scan. Plan: -Okay for q4 NCs -CTH/CTA stable, no vascular lesion identified -f/u MRI Brain w/wo contrast -Hold anticoagulation -No mass lesion identified, nsgy will continue to follow -SBP <140 Ramesh Dyson MD Neurosurgery, PGY-3 Pager: [phone] 02/05/2021 7:31 AMThe [place] SystemEvaluation note* Diagnosis Urgency incontinence- Primary Urge incontinence Benign prostatic hyperplasia with nocturia documented in this encounter [facility] AdFinance SystemHistory general Narrative - Reported* Type Description Date Medical History diabetes mallitus Medical History hypercholesterolemia Medical History Atrial fibrillation Medical History hypertension Medical History prostatism Surgical History Bilateral knee replacement Surgical History Colon Surgical History nasal surgery Surgical History eyes Hospitalization History See Above [facility] Other History of Present illness NarrativePatient returns in follow-up of recent hospitalization for pericarditis. Implementation of steroid therapy to completely resolve his symptomatology and he is very happy in this regard. This is a first time his been seen in the office. I advised him that we could perform another echocardiogram to evaluate the pericardial effusion to make sure it is gone but he is reluctant to do so and he reminds me that he is about to undergo transesophageal echo, again, in January to evaluate his previously implanted watchman device and because of this I suggested we hold off on any surface echocardiogram andwe will defer to the transesophageal study when performed. He is otherwise doing well. He has no angina CHF or arrhythmia symptomatology and risk factors from a cardiac standpoint otherwise appear sita adequately addressed. Blood pressure is actually noted to be low and he also is complaining of fatigue and leg edema. Because of this we will stop amlodipine and also reduce metoprolol to 25 mg once a day. He was encouraged to stay on his atorvastatin as before because it appears to be working very well for lipid lowering. We did also touched on the merits of diet and weight loss as well as smoking cessation.-[facility]-Joanie 250 DO Work Phone: History of Present illness NarrativePatient returns in follow-up of recent hospitalization for pericarditis. Implementation of steroid therapy to completely resolve his symptomatology and he is very happy in this regard. This is a first time his been seen in the office. I advised him that we could perform another echocardiogram to evaluate the pericardial effusion to make sure it is gone but he is reluctant to do so and he reminds me that he is about to undergo transesophageal echo, again, in January to evaluate his previously implanted watchman device and because of this I suggested we hold off on any surface echocardiogram andwe will defer to the transesophageal study when performed. He is otherwise doing well. He has no angina CHF or arrhythmia symptomatology and risk factors from a cardiac standpoint otherwise appear sita adequately addressed. Blood pressure is actually noted to be low and he also is complaining of fatigue and leg edema. Because of this we will stop amlodipine and also reduce metoprolol to 25 mg once a day. He was encouraged to stay on his atorvastatin as before because it appears to be working very well for lipid lowering. We did also touched on the merits of diet and weight loss as well as smoking cessation.[facility] [employer] DO Work Phone: InstructionsNot on filedocumented in this encounter You[employer] SystemInstructionsNot on filedocumented in this encounter [facility] Summary Purpose Family History No Family History Records FoundUnknown Family Member Name Dates Details Family history of diabetes m ellitus: Mother(V18.0, Z83.3) Status:Active Heart problem: Mother Status:Active Unknown Family Member Name Dates Details Family history of diabetes m ellitus: Mother(V18.0, Z83.3) Status:Active Heart problem: Mother Status:Active Advance Directives No Advanced Directives Records FoundLatest Code Status on File Code Status Date Activated Date Inactivated Comments Full Code 03/08/2022 3:29 AM 03/10/2022 6:24 PM Chief Complaint * [facility] [place] * SRAVANTHI ARAUJO is being seen for follow-up of a hospitalization for. * [facility] [place] * SRAVANTHI ARAUJO is being seen for follow-up of a hospitalization for. Additional Source Comments (unrecognized sect ion and content) No Status Records FoundNo Status Records FoundNo Status Records FoundNo Status Records FoundNo Status Records FoundNo Status Records Found INFORMATION SOURCE (unrecogn ized section and content) DATE CREATED AUTHOR 09/03/2021 [facility] DATE CREATED AUTHOR AUTHOR'S ORGANIZ ATION 07/08/2022 [facility] DATE CREATED AUTHOR AUTHOR'S ORGANIZ ATION 11/10/2022 [facility] DATE CREATED AUTHOR AUTHOR'S ORGANIZ ATION 06/06/2023 [facility] DATE CREATED AUTHOR AUTHOR'S ORGANIZ ATION 08/04/2023 [facility] DATE CREATED AUTHOR AUTHOR'S ORGANIZ ATION 09/25/2023 [facility] REASON FOR VISIT (unrecogniz ed section and content) Reason Comments New Patient Specialty Diagnoses / Procedures Referred By Jayden Referred To Contact Urology Diagnoses Mixed stress and urge urinary incontinence Fish Levy MD [address] [place] [address] [facility] [address] [place] [address] [place] [address] [address] Referral ID Status Reason Start Date Expiration Date Visits Requested Visits Authorized [id number] Pending Review Specialty Services Required 06/21/2023 06/20/2024 1 1 Reason Onset Date Comments Surgical Or Dental Clearance 08/07/2023 Care Teams (unrecognized sec tion and content) Clinical Specialty Rep Relationship Specialty Start Date End Date Fish Levy MD [address] [place] [address] PCP - General 04/10/17 Clinical Specialty Rep Relationship Specialty Start Date End Date Fish Levy MD [address] [place] [address] PCP - General 04/10/17 Clinical Specialty Rep Relationship Specialty Start Date End Date Fish Levy MD [address] [place] [address] PCP - General 04/10/17 FOR RECORDS PERTAINING TO PATIENTS WHO ARE OR HAVE BEEN ENROLLED IN A CHEMICAL DEPENDENCY/SUBSTANCEABUSE PROGRAM, SOME INFORMATION MAY BE OMITTED. This clinical summary was aggregated from multiple sources. Caution should be exercised in using it in the provision of clinical care. This summary normalizes information from multiple sources, and as a consequence, information in this document may materially change the coding, format and clinical context of patient data. In addition, data may be omitted in some cases. CLINICAL DECISIONS SHOULD BE BASED ON THE PRIMARY CLINICAL RECORDS. [facility] provides no warranty or guarantee of the accuracy or completeness of information in this document.
--- NOTE | 2023-09-26 20:52 | PC.NURSE ---
Dr Doherty talks to pts's on pt's cell phone. (pt's phone was ringing and person called back0
--- NOTE | 2023-09-26 21:10 | PC.NURSE ---
Pt's arrives and is taken to the room. asking what happen. [place] that EMS relayed was told to . states that pt had a history of Afib and states that they were never able to shock him back into SR. also states that pt just had a cystoscopy on Sunday but did not complain of not feeling well today. Dr Doherty in to talk with
== END 2023-09-27 01:20 | disposition expired ==
PROVIDERS: Emergency Provider Emergency Medicine; PCP Family Medicine
DX: I46.9 Cardiac arrest, cause unspecified (principal); I48.91 Unspecified atrial fibrillation; E78.5 Hyperlipidemia, unspecified; I50.9 Heart failure, unspecified; E11.9 Type 2 diabetes mellitus without complications; F32.A Depression, unspecified; Z85.038 Personal history of other malignant neoplasm of large intestine; Z86.73 Personal history of transient ischemic attack (TIA), and cerebral infarction without residual deficits; Z79.82 Long term (current) use of aspirin; Z79.899 Other long term (current) drug therapy; Z79.84 Long term (current) use of oral hypoglycemic drugs; Z90.49 Acquired absence of other specified parts of digestive tract; Z95.818 Presence of other cardiac implants and grafts; Z96.659 Presence of unspecified artificial knee joint; Z94.7 Corneal transplant status; Z87.891 Personal history of nicotine dependence
CPT/HCPCS: 92950; 99291